=== PATIENT | male | born 1945 | race Caucasian/White ===

== ENCOUNTER → 2018-02-08 | Outpatient (CLI) | payer MEDICARE ==
--- NOTE | 2018-02-08 16:20 | XR ---
EXAMINATION TYPE: XR chest 2V DATE OF EXAM: 02/08/2018 COMPARISON: 06/27/2017 HISTORY: Shortness of breath TECHNIQUE: Frontal and lateral views of the chest are obtained. FINDINGS: Large left-sided pleural effusion. Underlying infiltrate or mass is not excluded. The right lung is c lear. Heart size is stable. Mediastinal structures are stable and grossly unremarkable. No evidence for hilar prominence. Degenerative changes dorsal spine. IMPRESSION: 1. Large left-sided pleural effusion. Underlying infiltrate or mass is not excluded.
== END | disposition home or self-care (01) ==
LOC: RADXRMAIN 15:51
PROVIDERS: ATTEND Internal Medicine
DX: J90 Pleural effusion, not elsewhere classified (principal)
CPT/HCPCS: 71046

== ENCOUNTER 2018-02-17 11:50 | Emergency (ER) | payer MEDICARE ==
[2018-02-17 11:59] VITALS: RESP 18; TEMP 97.3
--- NOTE | 2018-02-17 12:59 | ED ---
Recheck HPI - General Chief Complaint: Recheck/Abnormal Lab/Rx Stated Complaint: fluid in lung Time Seen by Provider: 02/17/18 12:22 Source: patient, RN notes reviewed, old records reviewed Mode of arrival: wheelchair Limitations: no limitations - History of Present Illness Initial Comments: This Patient is a 72-year-old male with a history of difficulty in breathing. He reports that he was scheduled to have a diagnostic thoracentesis today by his neurologist Dr. Nobles. Patient reports that he could not get this scheduled due to insurance issues. He reports today complaining of worsening shortness of breath and feeling like he has abdominal distention. Patient states that he stopped his blood thinners 2 days ago in order to have this procedure, and is concerned about possibly having a stroke in the future. Patient reports that he started to have the difficulty in breathing and was diagnosed with a pleural effusion approximately 2 months ago. He stated this seemed to coincide with his history of a pacemaker placement. Patient states that he's had no fevers or chills. Denies any changes in urination or bowel habits. Patient relates that it seems like he is coming quite short of breath on exertion. He is unable to complete full sentences. He denies any specific chest pain with this. - Related Data Home Medications Medication Instructions Recorded Confirmed Atorvastatin [Lipitor] 10 mg PO Q48H 01/08/16 02/17/18 Fish Oil/Dha/Epa [Fish Oil 1,200 1 cap PO DAILY 01/08/16 02/17/18 mg Fish Oil] Multivitamin [Men's Multi-Vitamin] 1 tab PO DAILY 01/08/16 02/17/18 Vits A,C,E/Lutein/Minerals 1 tab PO DAILY 01/08/16 02/17/18 [Ocuvite with Lutein Tablet] Albuterol Inhaler [Ventolin Hfa 1 - 2 puff INHALATION RT-Q6H PRN 06/23/17 Inhaler] Budesonide/Formoterol Fumarate 2 puff INHALATION RT-BID 06/23/17 02/17/18 [Symbicort 160-4.5 Mcg Inhaler] Apixaban [Eliquis] 5 mg PO DIRECTED 02/17/18 02/17/18 amLODIPine [Norvasc] 5 mg PO HS 02/17/18 02/17/18 Previous Rx's Medication Instructions Recorded Furosemide [Lasix] 40 mg PO DAILY tab 06/27/17 Levothyroxine Sodium [Synthroid] 25 mcg PO DAILY@0630 tab 06/27/17 Allergies Allergy/AdvReac Type Severity Reaction Status Date / Time No Known Allergies Allergy Verified 02/17/18 12:31 Review of Systems ROS Statement: Those systems with pertinent positive or pertinent negative responses have been documented in the HPI. ROS Other: All systems not noted in ROS Statement are negative. Past Medical History Past Medical History: Atrial Fibrillation, COPD, Hyperlipidemia Additional Past Medical History / Comment(s): macular degeneration, cataracts( had sx w/lens implants), bronchits, sinus poblems, pleural effusion History of Any Multi-Drug Resistant Organisms: None Reported Past Surgical History: Adenoidectomy, Pacemaker, Tonsillectomy Additional Past Surgical History / Comment(s): colonoscopy /polypectomy-neg, cataracts-lens implants, thoracentesis Past Anesthesia/Blood Transfusion Reactions: No Reported Reaction Past Psychological History: No Psychological Hx Reported Smoking Status: Former smoker - Past Family History Mother Family Medical History: Diabetes Mellitus Father Family Medical History: No Reported History General Exam - General Exam Comments Initial Comments: Patient is a 72-year-old male. Alert and oriented. Pleasant. No acute distress. Limitations: no limitations General appearance: alert, in no apparent distress Head exam: Present: atraumatic, normocephalic, normal inspection Eye exam: Present: normal appearance, PERRL, EOMI. Absent: scleral icterus, conjunctival injection, periorbital swelling ENT exam: Present: normal exam, mucous membranes moist Neck exam: Present: normal inspection. Absent: tenderness, meningismus, lymphadenopathy Respiratory exam: Present: decreased breath sounds (Decreased lung sounds over the left lower lobe.). Absent: normal lung sounds bilaterally, respiratory distress, wheezes, rales, rhonchi, stridor Cardiovascular Exam: Present: regular rate, normal rhythm, normal heart sounds. Absent: systolic murmur, diastolic murmur, rubs, gallop, clicks GI/Abdominal exam: Present: soft, tenderness (Patient has evidence of a ventral hernia. Patient has some tenderness and extension of the abdomen noted. He reports he feels bloated.), normal bowel sounds. Absent: distended, guarding, rebound, rigid Extremities exam: Present: normal inspection, full ROM, normal capillary refill. Absent: tenderness, pedal edema, joint swelling, calf tenderness Back exam: Present: normal inspection Neurological exam: Present: alert, oriented X3, CN II-XII intact Psychiatric exam: Present: normal affect, normal mood Skin exam: Present: warm, dry, intact, normal color. Absent: rash Course Vital Signs 02/17/18 02/17/18 02/17/18 11:55 15:11 15:26 Temperature 97.3 F L Pulse Rate 60 60 60 Respiratory 18 18 18 Rate Blood Pressure 173/92 168/87 166/86 O2 Sat by Pulse 98 98 98 Oximetry 02/17/18 15:38 Temperature Pulse Rate 67 Respiratory 18 Rate Blood Pressure 160/88 O2 Sat by Pulse 98 Oximetry - Reevaluation(s) Reevaluation #1: 02/17/18 14:34 We were able to get ahold of Dr. Swanson who will come down to the emergency department in order to perform the thoracentesis procedure. Ultrasound was completed and the Patient was marked. Currently pending cage unloader arrival to complete the procedure. Medical Decision Making - Medical Decision Making 32-year-old male with history of pleural effusion presents today after he was unable to get worse and she says due to insurance reasons at noon today. Patient was evaluated in the ER. Chest x-ray completed and does have a moderate -sized pleural effusion. Patient did receive thoracentesis procedure by Dr. Swanson in the emergency department. Patient tolerated the procedure well. Approximately 2400 mL of straw-colored fluid were removed. This was sent for testing. The rest of his labs are reviewed and unremarkable. Repeat chest x- ray shows no evidence of pneumothorax. Patient does feel better after receiving the drainage. Patient will be discharged at this time he will be resuming his blood thinners. Discussed appropriate follow-up. All questions answered and return parameters were discussed. - Lab Data Result diagrams: 02/17/18 13:55 02/17/18 13:55 Lab Results 02/17/18 02/17/18 02/17/18 Range/Units 13:55 13:55 13:55 WBC 6.6 (3.8-10.6) k/uL RBC 5.43 (4.30-5.90) m/uL Hgb 15.0 (13.0-17.5) gm/dL Hct 44.3 (39.0-53.0) % MCV 81.6 (80.0-100.0) fL MCH 27.6 (25.0-35.0) pg MCHC 33.8 (31.0-37.0) g/dL RDW 13.6 (11.5-15.5) % Plt Count 190 (150-450) k/uL Neutrophils % 66 % Lymphocytes % 22 % Monocytes % 7 % Eosinophils % 4 % Basophils % 0 % Neutrophils # 4.3 (1.3-7.7) k/uL Lymphocytes # 1.4 (1.0-4.8) k/uL Monocytes # 0.4 (0-1.0) k/uL Eosinophils # 0.3 (0-0.7) k/uL Basophils # 0.0 (0-0.2) k/uL PT 11.0 (9.0-12.0) sec INR 1.1 (<1.2) APTT 25.6 (22.0-30.0) sec Sodium 140 (137-145) mmol/L Potassium 4.0 (3.5-5.1) mmol/L Chloride 102 (98-107) mmol/L Carbon Dioxide 27 (22-30) mmol/L Anion Gap 11 mmol/L BUN 14 (9-20) mg/dL Creatinine 0.79 (0.66-1.25) mg/dL Est GFR (CKD-EPI)AfAm >90 (>60 ml/min/1.73 sqM) Est GFR (CKD-EPI)NonAf 89 (>60 ml/min/1.73 sqM) Glucose 93 (74-99) mg/dL Calcium 9.2 (8.4-10.2) mg/dL EKG performed at 1344 shows no jugular paced rhythm. Normal EKG. Ventricular rate 60 bpm. : Detected. QRS ration 164 ms. QT QTc is 508 ms. 02/17/18 14:47 02/17/18 14:48 - Radiology Data Radiology results: report reviewed Improve degree of the left pleural effusion now moderate with large associated left-sided airspace disease, likely compressive atelectasis. Chest ultrasound shows left pleural effusion measuring 10.8 cm. Persistent moderate left pleural effusion with minimal decrease in volume and associated basilar airspace disease, left leg compressed atelectasis. No postprocedural pneumothorax status post thoracentesis. Disposition Clinical Impression: Pleural effusion Disposition: HOME SELF-CARE Condition: Good Instructions: Pleural Effusion (ED) Additional Instructions: Patient advised to follow-up with primary care provider and pulmonology. Return to the emergency department if any alarming signs or symptoms occur. Is patient prescribed a controlled substance at d/c from ED?: No When asked, does pt state using other controlled substances?: No If prescribed controlled substance>3 days was MAPS reviewed?: No If opioid is for acute pain is fill amount 7 days or less?: No If Rx opioid, was Start Talking consent form obtained?: No Referrals: Kiki Schmidt MD [Primary Care Provider] - 1-2 days Time of Disposition: 16:00
--- NOTE | 2018-02-17 13:10 | XR ---
EXAMINATION TYPE: XR chest 2V DATE OF EXAM: 02/17/2018 COMPARISON: 02/08/2018 HISTORY: Chest pain with known pleural effusion. TECHNIQUE: Frontal and lateral views of the chest are obtained. FINDINGS: There is slight improvement of the moderate left pleural effusion in comparison to the mirtha or of 02/08/2018 with associated left-sided airspace disease. No pneumothorax is appreciated. Right kendy g remains clear. Mediastinum is shifted slightly to the right by mass effect. There is partial obscur ation of the cardiac borders although the heart appears overall stable from the prior with a single l ead left-sided cardiac device. Osseous structures are grossly intact. IMPRESSION: Improved degree of the left pleural effusion, now moderate, with associated left-sided a irspace disease likely compressive atelectasis.
[2018-02-17] MEDS ORDERED: SODIUM CHLORIDE 0.9% 500 ML IV STA (13:18)
[2018-02-17] MEDS ORDERED: SODIUM CHLORIDE 0.9% 1,000 ML IV STA (13:18)
[2018-02-17 14:16] LABS: Basophils % (A) 0 %; Eosinophils # (A) 0.3 k/uL (0-0.7); Eosinophils % (A) 4 %; HCT 44.3 % (39.0-53.0); Lymphocytes # (A) 1.4 k/uL (1.0-4.8); Lymphocytes % (A) 22 %; MCH 27.6 pg (25.0-35.0); MCHC 33.8 g/dL (31.0-37.0); MCV 81.6 fL (80.0-100.0); Mean Platelet Volume 6.4; Monocytes # (A) 0.4 k/uL (0-1.0); Monocytes % (A) 7 %; Neutrophils # (A) 4.3 k/uL (1.3-7.7); Neutrophils % (A) 66 %; Platelet Count 190 k/uL (150-450); RBC 5.43 m/uL (4.30-5.90); RDW 13.6 % (11.5-15.5); WBC 6.6 k/uL (3.8-10.6)
[2018-02-17 14:20] LABS: Anion Gap 11 mmol/L; Blood Urea Nitrogen 14 mg/dL (9-20); Calcium 9.2 mg/dL (8.4-10.2); Carbon Dioxide 27 mmol/L (22-30); Chloride 102 mmol/L (98-107); Glucose 93 mg/dL (74-99); Sodium 140 mmol/L (137-145)
[2018-02-17 14:23] LABS: INR 1.1 (<1.2); Partial Thromboplastin Time 25.6 sec (22.0-30.0)
--- NOTE | 2018-02-17 14:32 | US ---
EXAMINATION TYPE: US chest DATE OF EXAM: 02/17/2018 COMPARISON: NONE CLINICAL HISTORY: left pleural effusion. EXAM MEASUREMENTS: Left Pleural Effusion fluid pocket: 10.8 cm Left skin to fluid thickness: 1.7 cm Right side scanned for comparison- no effusion Left side marked for possible thoracentesis outside the dept. Pulmonologists are able to review the images in the patient?s EMR. IMPRESSIONS: Left pleural effusion
--- NOTE | 2018-02-17 15:56 | XR ---
EXAMINATION TYPE: XR chest 1V DATE OF EXAM: 02/17/2018 COMPARISON: 02/17/2018 HISTORY: Status post thoracentesis. Chest pain. TECHNIQUE: Single frontal view of the chest is obtained. FINDINGS: The there is a minimal decrease in degree of the left sided pleural effusion with associat ed left sided airspace disease and Zhao mediastinal shift. There is a single lead left-sided cardiac device overlying the peripheral left hemithorax. Cardiomediastinal silhouette is partially obscured but appears overall enlarged. Right lung remains well aerated. Osseous structures display generalized demineralization but overall intact. No postprocedural pneumothorax. IMPRESSION: Persistent moderate left pleural effusion with minimal decrease in volume and associated left basilar airspace disease, likely compressive atelectasis. No postprocedural pneumothorax status post thoracentesis.
[2018-02-17 16:38] VITALS: BP 161/90; PULSE 63
--- NOTE | 2018-02-17 19:23 | PCN ---
PROCEDURE NOTE Indication Pleural effusion. A time-out was completed verifying correct patient, procedure, site, positioning , and implant (s) or special equipment if applicable. Ultrasound guidance was used and appropriate fluid pocket was identified and marked. Patient was positioned, prepped and draped in usual sterile fashion. Lidocaine was used to anesthetize the area. A Thoracentesis catheter was introduced into the pleural space and fluid was removed. Blood loss was none. A chest x-ray was ordered to evaluate for pneumothorax. Total Fluid Removed: 2.4 L removed from the left pleural space. Color of Fluid: Fluid was sent for appropriate laboratory tests. Patient tolerated the procedure well and there were no complications. There was no immediate complication. The fluid was sent for analysis. A chest x-ray was ordered. No additional recommendations are made. The patient tolerated the procedure well. MMODL / IJN: [id number] /
[2018-02-17 20:11] LABS: Appearance,BF Clear; Color,BF Yellow; Nucleated Cells, Body Fluid 655 /uL; RBC, Body Fluid 345 /uL
[2018-02-17 20:12] LABS: Mononuclear WBC,Body Fluid 95 %; Polynuclear WBC,Body Fluid 5 %
[2018-02-18 00:46] LABS: Total Protein, Body Fluid 4480 mg/dL
== END 2018-02-17 16:11 | disposition home or self-care (01) ==
LOC: EC 11:50
DX: J90 Pleural effusion, not elsewhere classified (principal); I48.91 Unspecified atrial fibrillation; J44.9 Chronic obstructive pulmonary disease, unspecified; E78.5 Hyperlipidemia, unspecified; Z95.0 Presence of cardiac pacemaker; Z79.01 Long term (current) use of anticoagulants; Z79.51 Long term (current) use of inhaled steroids; Z79.899 Other long term (current) drug therapy; Z87.891 Personal history of nicotine dependence
CPT/HCPCS: 32555; 36415; 71045; 71046; 76604; 80048; 82945; 83615; 84157; 85025; 85610; 85730; 87070; 87205; 88108; 88305; 88341; 88342; 89050; 93005; 99284

== ENCOUNTER → 2018-03-12 | Outpatient (CLI) | payer MEDICARE ==
--- NOTE | 2018-03-12 16:24 | CT ---
EXAMINATION TYPE: CT chest w con DATE OF EXAM: 03/12/2018 COMPARISON: Radiographs 03/03/2018 HISTORY: 72-year-old male pleural effusion, Abnormal CXR per patient TECHNIQUE: Contiguous axial scanning of the chest after the administration of 100 mL of Isovue 300. Coronal/sagittal reconstructions performed. CT DLP: 614.6mGycm. Automatic exposure control utilized for a dose reduction. FINDINGS: Left anterior chest wall pacemaker generator with right ventricular lead. Heart normal size without pericardial effusion. Extensive coronary vessel calcifications are present in remarkable for coronary artery disease. Ascending aorta mildly aneurysmal at 4.1 cm. There is conventional arch vessel branching anatomy and ectatic descending thoracic aorta at 3.1 cm. No thoracic lymphadenopathy by CT size criteria. There is reflux of contrast into the hepatic veins and borderline sized caliber to the main right and left pulmonary arteries at 2.5 cm each. The right lung and pleural space are clear. There is a moderate to large left pleural effusion extending up to the apex. There may be some abnormal 2.3 cm soft tissue along the left lower lobe airway after the takeoff of t he superior segment bronchus. Refer to axial image 43. There is collapse of the basilar left lower lo be segments. Visualized upper abdomen shows clear adrenal glands, occasional colonic diverticulosis on the left, a nd a subcentimeter exophytic hypodensity posterior right kidney too small for accurate CT characteriz ation, probable cyst. Bones: Endplate spondylosis mid to lower thoracic spine. IMPRESSION: 1. Possible abnormal soft tissue measuring 2.3 cm along the left lower lobe airway after the takeoff of the superior segment bronchus (axial image 43). Beyond this level, there is basilar left lower lob e collapse. Consider endobronchial evaluation to exclude neoplasm. 2. Moderate to large left pleural effusion. 3. Mildly aneurysmal thoracic aorta (ascending 4.1 cm and descending 3.1 cm). 4. Possible pulmonary arterial hypertension. Along with reflux of contrast into the hepatic veins, co rrelate for elevated cardiac pressures. 5. CAD.
== END ==
LOC: RADCTMAIN 15:08
PROVIDERS: ATTEND Internal Medicine Critical Care Medicine
DX: J90 Pleural effusion, not elsewhere classified (principal); J98.11 Atelectasis
CPT/HCPCS: 82565; 84520; 71260; 36415; Q9967

== ENCOUNTER 2018-03-25 07:23 | Day surgery (SDC) | payer MEDICARE ==
[2018-03-22 11:16] VITALS: BMI 29.2
[~2018-03-25 07:23] MED LIST: DEXAMETHASONE SOD PHOSPHATE 10 MG/ML 1 ML VIAL IV ONE; HYDROmorphone 0.5 MG/0.5 ML SYRINGE IVP PRN; LACTATED RINGERS 1,000 ML IV SCH; ONDANSETRON 4 MG/2 ML VIAL IVP ONE; Pre Op ABX Message 1 EACH MISC MISCELLANE ONE
[2018-03-25] MEDS ORDERED: LIDOCAINE 1% 20 ML VIAL (10MG/ML) FOR IV START INTRADERMA ONE (08:10)
[2018-03-25 08:14] VITALS: RESP 18
[2018-03-25] MEDS ORDERED: LIDOCAINE 1% INJ 10MG/ML (20 ML MDV) ONE (10:00)
[2018-03-25] MEDS ORDERED: PROPOFOL 10 MG/ML 20 ML VIAL IV ONE (10:00)
[2018-03-25] MEDS ORDERED: fentaNYL (PF) 50 MCG/ML 2 ML AMP ONE (10:00)
[2018-03-25] MEDS ORDERED: MIDAZOLAM 2 MG/2 ML VIAL ONE (10:00)
[2018-03-25] MEDS ORDERED: LIDOCAINE 1% INJ 10MG/ML (20 ML MDV) SQ ONE (10:12)
--- NOTE | 2018-03-25 11:29 | FL ---
EXAMINATION TYPE: FL guided central line placement DATE OF EXAM: 03/25/2018 FLUOROSCOPY Fluoroscopy time of 30 seconds was used during left chest tube placement. 1 image/s document/s the josue grigsby.
--- NOTE | 2018-03-25 12:04 | PCN ---
PROCEDURE NOTE DATE OF OPERATION: 03/25/2018 DATE OF DICTATION: 03/25/2018 PREOPERATIVE DIAGNOSIS: Recurrent left pleural effusion. POSTOPERATIVE DIAGNOSE: Recurrent left pleural effusion. OPERATIVE PROCEDURE: Left Pleur-X catheter implantation. SURGEON: Dr. Ash Aleman. ANESTHESIA: Local IV sedation. The patient is a 72-year-old male who has been plagued by a recurrent left pleural effusion, status post placement of a left-sided pacemaker in June of 2017. Heart catheter was indicated for surgery. PROCEDURE: Patient was brought to the operating room, placed supine on the operating table. The left chest and upper abdomen are sterilely prepped and draped; 1% lidocaine was used for anesthesia. An 18-gauge needle was used to puncture the left pleural space in the 7th interspace in the mid axillary line. Serous fluid was obtained. A guidewire was threaded present in the left lateral space on fluoroscopy. The entry point was enlarged to just over a cm and a counter incision was made in the left upper quadrant. The Pleurx catheter was tunneled from the counter incision on the left upper quadrant to the initial incision in the left chest and the subcutaneous cuff was placed just below the exit upper quadrant below the skin. Introducer and dilator were placed over the guidewire under fluoroscopic guidance and through the introducer sheath, the Pleur- X catheter was entered into the left pleural cavity. Introducer sheath was removed. Placement in the left pleural cavity was confirmed with fluoroscopy. Pleur-X catheter was connected to suction. Samples were collected for cell count, chemistry, culture, and cytology, and a total of 2.5 L were drained from the left pleural space. On completion of the drainage, the patient began to cough and we stopped draining. Fluoroscopy demonstrated good evacuation of the left pleural space with a small residual pneumothorax present. The entry site was closed with 4-0 Vicryl suture, his catheter was secured at the exit site with 2 0 silk suture. Skin glue was applied to the entry site incision and standard PleurX drainage dressing was applied to the PleurX catheter at the exit site. Patient was transferred to recovery room in stable condition. MMODL / IJN: [id number] /
[2018-03-25 14:04] VITALS: TEMP 98.3
[2018-03-25 14:14] LABS: Appearance,BF Cloudy; Color,BF Yellow; RBC, Body Fluid 5500 /uL
[2018-03-25 14:15] VITALS: BP 132/75; PULSE 60
[2018-03-25 14:15] LABS: Nucleated Cells, Body Fluid 820 /uL
[2018-03-25 14:16] LABS: Mononuclear WBC,Body Fluid 98 %; Polynuclear WBC,Body Fluid 2 %; Total Cells Counted,Body Fluid 100
[2018-03-26 00:51] LABS: Total Protein, Body Fluid 4500 mg/dL
== END 2018-03-25 14:08 | disposition home health service (06) ==
LOC: OR 07:23
PROVIDERS: ATTEND Thoracic Surgery (Cardiothoracic Vascular Surgery)
DX: J90 Pleural effusion, not elsewhere classified (principal); Z95.0 Presence of cardiac pacemaker; I48.91 Unspecified atrial fibrillation; Z79.01 Long term (current) use of anticoagulants; I10 Essential (primary) hypertension; E78.5 Hyperlipidemia, unspecified; E07.9 Disorder of thyroid, unspecified; Z79.82 Long term (current) use of aspirin; Z79.890 Hormone replacement therapy; Z79.51 Long term (current) use of inhaled steroids; Z79.899 Other long term (current) drug therapy
CPT/HCPCS: 32550; 88108; 88305; 89050; 87070; 87205; 87075; 87116; 87102; 87206; 82945; 83615; 84157; 75989; J2250; J1100; J2405; J2001; J3010; J2704; 77001

== ENCOUNTER 2018-06-06 18:40 | Inpatient (IN) | payer MEDICARE ==
[2018-06-06] MEDS ORDERED: IPRATROPIUM 0.5 MG/2.5 ML NEBU INHALATION STA (18:46)
[2018-06-06] MEDS ORDERED: SODIUM CHLORIDE 0.9% 1,000 ML IV STA (18:46)
[2018-06-06] MEDS ORDERED: ALBUTEROL NEBULIZED 2.5 MG/3 ML INHALATION STA (18:46)
--- NOTE | 2018-06-06 19:06 | ED ---
General Adult HPI - General Chief complaint: Shortness of Breath Stated complaint: Diff Breathing, Congested, Tighness Time Seen by Provider: 06/06/18 18:44 Source: patient, RN notes reviewed, old records reviewed Mode of arrival: ambulatory Limitations: no limitations - History of Present Illness Initial comments: This is a 73-year-old male the ER for evaluation of recent shortness of breath onset of shortness of breath. Patient is multiple comorbidities shortness of breath he does get significant pleural effusions,history of COPD. He also feels significant chest tightness currently. No travel history of recent, no recent hospital stay shows no fevers he is coughing with no productive sputum. He just feels again tightness chest. Denies significant pain. No melena real modifying factors for symptoms - Related Data Home Medications Medication Instructions Recorded Confirmed Atorvastatin [Lipitor] 10 mg PO Q48H 01/08/16 03/25/18 Fish Oil/Dha/Epa [Fish Oil 1,200 1 cap PO DAILY 01/08/16 03/25/18 mg Fish Oil] Multivitamin [Men's Multi-Vitamin] 1 tab PO DAILY 01/08/16 03/25/18 Vits A,C,E/Lutein/Minerals 1 tab PO DAILY 01/08/16 03/25/18 [Ocuvite with Lutein Tablet] Albuterol Inhaler [Ventolin Hfa 1 - 2 puff INHALATION RT-Q6H PRN 06/23/17 Inhaler] Budesonide/Formoterol Fumarate 2 puff INHALATION RT-BID 06/23/17 03/25/18 [Symbicort 160-4.5 Mcg Inhaler] Apixaban [Eliquis] 5 mg PO DAILY 02/17/18 03/25/18 amLODIPine [Norvasc] 5 mg PO HS 02/17/18 03/25/18 Aspirin [Adult Low Dose Aspirin EC] 81 mg PO DAILY 03/22/18 03/25/18 Vit C/E/Zn/Coppr/Lutein/Zeaxan 1 each PO DAILY 03/22/18 03/25/18 [Preservision Areds 2 Softgel] Previous Rx's Medication Instructions Recorded Furosemide [Lasix] 40 mg PO DAILY tab 06/27/17 Levothyroxine Sodium [Synthroid] 25 mcg PO DAILY@0630 tab 06/27/17 Allergies Allergy/AdvReac Type Severity Reaction Status Date / Time No Known Allergies Allergy Verified 06/06/18 18:47 Review of Systems ROS Statement: Those systems with pertinent positive or pertinent negative responses have been documented in the HPI. ROS Other: All systems not noted in ROS Statement are negative. Past Medical History Past Medical History: Atrial Fibrillation, COPD, Eye Disorder, Hyperlipidemia, Hypertension Additional Past Medical History / Comment(s): macular degeneration, hx of left pleural effusion History of Any Multi-Drug Resistant Organisms: None Reported Past Surgical History: Adenoidectomy, Pacemaker, Tonsillectomy Additional Past Surgical History / Comment(s): colonoscopy /polypectomy-neg, cataracts-lens implants,. left thoracentesis, [employer], pleural catheter placement Past Anesthesia/Blood Transfusion Reactions: No Reported Reaction Type of Cardiac Device: Permanent Pacemaker Device Placement Date:: 06/2017 Past Psychological History: No Psychological Hx Reported Smoking Status: Former smoker Past Alcohol Use History: None Reported Past Drug Use History: None Reported - Past Family History Mother Family Medical History: Cancer, Diabetes Mellitus Additional Family Medical History / Comment(s): breast Father Family Medical History: No Reported History General Exam Limitations: no limitations General appearance: alert, in no apparent distress Head exam: Present: atraumatic, normocephalic, normal inspection Eye exam: Present: normal appearance, PERRL, EOMI. Absent: scleral icterus, conjunctival injection, periorbital swelling ENT exam: Present: normal exam, mucous membranes moist Neck exam: Present: normal inspection. Absent: tenderness, meningismus, lymphadenopathy Respiratory exam: Present: wheezes. Absent: normal lung sounds bilaterally, respiratory distress, rales, rhonchi, stridor Cardiovascular Exam: Present: normal rhythm, bradycardia (Paced rhythm), normal heart sounds. Absent: systolic murmur, diastolic murmur, rubs, gallop, clicks GI/Abdominal exam: Present: soft, normal bowel sounds. Absent: distended, tenderness, guarding, rebound, rigid Extremities exam: Present: normal inspection, full ROM, normal capillary refill. Absent: tenderness, pedal edema, joint swelling, calf tenderness Back exam: Present: normal inspection Neurological exam: Present: alert, oriented X3, CN II-XII intact Psychiatric exam: Present: normal affect, normal mood Skin exam: Present: warm, dry, intact, normal color. Absent: rash Course Vital Signs 06/06/18 06/06/18 06/06/18 18:44 19:03 19:17 Temperature 98.3 F Pulse Rate 61 64 60 Respiratory 18 Rate Blood Pressure 145/74 O2 Sat by Pulse 94 L Oximetry 06/06/18 19:45 Temperature Pulse Rate 60 Respiratory Rate Blood Pressure O2 Sat by Pulse Oximetry - Reevaluation(s) Reevaluation #1: 06/06/18 20:59 Patient has no improvement currently Reevaluation #2: 06/06/18 20:59 Medical records thoroughly reviewed EKG Findings - EKG Comments: EKG Findings:: EKG shows undetermined rhythm rate of 60, QRS 172, QTc 540 Medical Decision Making - Medical Decision Making 73 male the ER for evaluation significant COPD exacerbation, continued of shortness of breath and tightness. We'll admit for breathing treatments and steroids - Lab Data Result diagrams: 06/06/18 19:05 06/06/18 19:05 Lab Results 06/06/18 06/06/18 06/06/18 Range/Units 19:05 19:05 19:05 WBC 13.6 H (3.8-10.6) k/uL RBC 5.29 (4.30-5.90) m/uL Hgb 14.0 (13.0-17.5) gm/dL Hct 43.1 (39.0-53.0) % MCV 81.4 (80.0-100.0) fL MCH 26.5 (25.0-35.0) pg MCHC 32.5 (31.0-37.0) g/dL RDW 14.3 (11.5-15.5) % Plt Count 184 (150-450) k/uL Neutrophils % 83 % Lymphocytes % 8 % Monocytes % 5 % Eosinophils % 3 % Basophils % 0 % Neutrophils # 11.3 H (1.3-7.7) k/uL Lymphocytes # 1.1 (1.0-4.8) k/uL Monocytes # 0.7 (0-1.0) k/uL Eosinophils # 0.4 (0-0.7) k/uL Basophils # 0.0 (0-0.2) k/uL PT (9.0-12.0) sec INR (<1.2) APTT (22.0-30.0) sec Sodium 138 (137-145) mmol/L Potassium 3.7 (3.5-5.1) mmol/L Chloride 100 (98-107) mmol/L Carbon Dioxide 26 (22-30) mmol/L Anion Gap 12 mmol/L BUN 12 (9-20) mg/dL Creatinine 0.79 (0.66-1.25) mg/dL Est GFR (CKD-EPI)AfAm >90 (>60 ml/min/1.73 sqM) Est GFR (CKD-EPI)NonAf 88 (>60 ml/min/1.73 sqM) Glucose 127 H (74-99) mg/dL Calcium 9.6 (8.4-10.2) mg/dL Magnesium 1.9 (1.6-2.3) mg/dL Total Bilirubin 0.7 (0.2-1.3) mg/dL AST 34 (17-59) U/L ALT 38 (21-72) U/L Alkaline Phosphatase 58 (38-126) U/L Total Creatine Kinase 393 H (55-170) U/L CK-MB (CK-2) 5.8 H (0.0-2.4) ng/mL CK-MB (CK-2) Rel Index 1.5 Troponin I <0.012 (0.000-0.034) ng/mL NT-Pro-B Natriuret Pep pg/mL Total Protein 7.3 (6.3-8.2) g/dL Albumin 4.3 (3.5-5.0) g/dL 06/06/18 06/06/18 Range/Units 19:05 19:05 WBC (3.8-10.6) k/uL RBC (4.30-5.90) m/uL Hgb (13.0-17.5) gm/dL Hct (39.0-53.0) % MCV (80.0-100.0) fL MCH (25.0-35.0) pg MCHC (31.0-37.0) g/dL RDW (11.5-15.5) % Plt Count (150-450) k/uL Neutrophils % % Lymphocytes % % Monocytes % % Eosinophils % % Basophils % % Neutrophils # (1.3-7.7) k/uL Lymphocytes # (1.0-4.8) k/uL Monocytes # (0-1.0) k/uL Eosinophils # (0-0.7) k/uL Basophils # (0-0.2) k/uL PT 10.9 (9.0-12.0) sec INR 1.1 (<1.2) APTT 26.3 (22.0-30.0) sec Sodium (137-145) mmol/L Potassium (3.5-5.1) mmol/L Chloride (98-107) mmol/L Carbon Dioxide (22-30) mmol/L Anion Gap mmol/L BUN (9-20) mg/dL Creatinine (0.66-1.25) mg/dL Est GFR (CKD-EPI)AfAm (>60 ml/min/1.73 sqM) Est GFR (CKD-EPI)NonAf (>60 ml/min/1.73 sqM) Glucose (74-99) mg/dL Calcium (8.4-10.2) mg/dL Magnesium (1.6-2.3) mg/dL Total Bilirubin (0.2-1.3) mg/dL AST (17-59) U/L ALT (21-72) U/L Alkaline Phosphatase (38-126) U/L Total Creatine Kinase (55-170) U/L CK-MB (CK-2) (0.0-2.4) ng/mL CK-MB (CK-2) Rel Index Troponin I (0.000-0.034) ng/mL NT-Pro-B Natriuret Pep 1220 pg/mL Total Protein (6.3-8.2) g/dL Albumin (3.5-5.0) g/dL - Radiology Data Radiology results: report reviewed (Chest x-rays negative for effusion), image reviewed Disposition Clinical Impression: Acute exacerbation of chronic obstructive airways disease Disposition: ADMITTED IP TO THIS HOSP Condition: Fair Is patient prescribed a controlled substance at d/c from ED?: No Referrals: Kiki Schmidt MD [Primary Care Provider] - 1-2 days
[2018-06-06 19:21] LABS: Basophils % (A) 0 %; Eosinophils # (A) 0.4 k/uL (0-0.7); Eosinophils % (A) 3 %; HCT 43.1 % (39.0-53.0); Lymphocytes # (A) 1.1 k/uL (1.0-4.8); Lymphocytes % (A) 8 %; MCH 26.5 pg (25.0-35.0); MCHC 32.5 g/dL (31.0-37.0); MCV 81.4 fL (80.0-100.0); Mean Platelet Volume 6.7; Monocytes # (A) 0.7 k/uL (0-1.0); Monocytes % (A) 5 %; Neutrophils # (A) 11.3 k/uL (1.3-7.7); Neutrophils % (A) 83 %; Platelet Count 184 k/uL (150-450); RBC 5.29 m/uL (4.30-5.90); RDW 14.3 % (11.5-15.5); WBC 13.6 k/uL (3.8-10.6)
[2018-06-06 19:32] LABS: INR 1.1 (<1.2); Partial Thromboplastin Time 26.3 sec (22.0-30.0); Prothrombin Time 10.9 sec (9.0-12.0)
[2018-06-06 19:35] LABS: ALT 38 U/L (21-72); AST 34 U/L (17-59); Albumin 4.3 g/dL (3.5-5.0); Alkaline Phosphatase 58 U/L (38-126); Anion Gap 12 mmol/L; Blood Urea Nitrogen 12 mg/dL (9-20); Calcium 9.6 mg/dL (8.4-10.2); Carbon Dioxide 26 mmol/L (22-30); Chloride 100 mmol/L (98-107); Glucose 127 mg/dL (74-99); Magnesium 1.9 mg/dL (1.6-2.3); Potassium 3.7 mmol/L (3.5-5.1); Sodium 138 mmol/L (137-145); Total Bilirubin 0.7 mg/dL (0.2-1.3); Total Protein 7.3 g/dL (6.3-8.2)
[2018-06-06 19:49] LABS: Creatine Kinase 393 U/L (55-170)
[2018-06-06 20:03] LABS: Creatine Kinase MB 5.8 ng/mL (0.0-2.4); Troponin I <0.012 ng/mL (0.000-0.034)
--- NOTE | 2018-06-06 20:04 | XR ---
EXAMINATION TYPE: XR chest 2V DATE OF EXAM: 06/06/2018 COMPARISON: 06/04/2018 HISTORY: Short of breath TECHNIQUE: Frontal and lateral views of the chest are obtained. FINDINGS: There is no heart failure nor confluent pneumonic infiltrate. Costophrenic angles are suzi r. There is left axillary pacemaker with the lead tip in the right ventricle. There are chest leads. Bony thorax is intact. There is mild flattening of the diaphragm. IMPRESSION: There is probably COPD. No active cardiopulmonary disease. No change.
[2018-06-06] MEDS ORDERED: methylPREDNISolone SOD SUCCI 125 MG/2 ML VIAL IV STA (20:43)
[2018-06-06] MEDS: ALBUTEROL NEBULIZED 2.5 MG/3 ML INHALATION PRN (22:45)
[2018-06-06 22:49] LABS: Glucose,Whole Blood 125 mg/dL (75-99)
[2018-06-07] MEDS: methylPREDNISolone SOD SUCCI 125 MG/2 ML VIAL IV SCH ×4 (00:55→18:18)
[2018-06-07] MEDS: ALBUTEROL NEBULIZED 2.5 MG/3 ML INHALATION PRN ×3 (03:45→23:51)
[2018-06-07 05:52] LABS: Basophils % (A) 0 %; Eosinophils # (A) 0.1 k/uL (0-0.7); Eosinophils % (A) 1 %; HCT 42.6 % (39.0-53.0); HGB 13.5 gm/dL (13.0-17.5); Lymphocytes # (A) 0.5 k/uL (1.0-4.8); Lymphocytes % (A) 5 %; MCH 26.3 pg (25.0-35.0); MCHC 31.8 g/dL (31.0-37.0); MCV 82.7 fL (80.0-100.0); Mean Platelet Volume 6.1; Monocytes # (A) 0.2 k/uL (0-1.0); Monocytes % (A) 2 %; Neutrophils # (A) 10.4 k/uL (1.3-7.7); Neutrophils % (A) 93 %; Platelet Count 175 k/uL (150-450); RBC 5.15 m/uL (4.30-5.90); RDW 14.2 % (11.5-15.5); WBC 11.2 k/uL (3.8-10.6)
[2018-06-07 06:01] LABS: ALT 38 U/L (21-72); AST 33 U/L (17-59); Alkaline Phosphatase 58 U/L (38-126); Anion Gap 10 mmol/L; Blood Urea Nitrogen 14 mg/dL (9-20); Calcium 9.4 mg/dL (8.4-10.2); Carbon Dioxide 27 mmol/L (22-30); Chloride 101 mmol/L (98-107); Glucose 171 mg/dL (74-99); Potassium 4.4 mmol/L (3.5-5.1); Sodium 138 mmol/L (137-145); Total Bilirubin 0.7 mg/dL (0.2-1.3); Total Protein 6.9 g/dL (6.3-8.2)
[2018-06-07 06:02] VITALS: BMI 30.6
[2018-06-07 07:37] LABS: Glucose,Whole Blood 170 mg/dL (75-99)
[2018-06-07] MEDS: IPRATROPIUM-ALBUTEROL 3 ML NEB INHALATION SCH ×4 (07:55→19:38)
[2018-06-07] MEDS: INSULIN ASPART 100 UNIT/ML 1 ML 10 ML VIAL SQ SCH ×4 (08:06→20:57)
--- NOTE | 2018-06-07 10:20 | P.HPIM ---
History of Present Illness H&P Date: 06/07/18 Chief Complaint: Dyspnea This is a 73-year-old male patient who presented to the emergency room with complaints of increased shortness of breath. Patient states that shortness of breath had been progressively increasing throughout the weekend. Patient has a known past medical history of COPD and pleural effusion. Patient does have a Pleurx catheter to left side placed in March per Dr. Aleman. Patient states he gets Pleurx drained every Thursday and Thursday. Patient did state he got 50 mL out on Thursday. Patient does follow with Dr. Sandhu per pulmonary services. Additional medical history includes atrial fibrillation in which she takes eliquis, Permanent pacemaker, macular degeneration, hyperlipidemia and hypertension. Chest x-ray completed emergency room showing probable COPD. No active cardiopulmonary disease. No change. Dr. Sandhu consulted for pulmonary services. EKG completed showing undetermined rhythm nonspecific intraventricular block. Patient does have a pacemaker. Patient states he does have advanced her active but does not have it currently present with him. Patient is alert and oriented 3 and states that he would like CPR but no mechanical ventilation. Patient started on Solu-Medrol 60 mg every 6 hours and breathing treatments. At this time patient denies chest pain. Does state shortness of breath with increased activity. Patient denies nausea vomiting or diarrhea. Patient denies any urinary burning or frequency Review of Systems Please refer to HPI otherwise unremarkable Past Medical History Past Medical History: Atrial Fibrillation, COPD, Eye Disorder, Hyperlipidemia, Hypertension Additional Past Medical History / Comment(s): Macular degeneration, left pleural effusions w/ Pleur-X catheter in LUQ (placed by Dr. Aleman), History of Any Multi-Drug Resistant Organisms: None Reported Past Surgical History: Adenoidectomy, Pacemaker, Tonsillectomy Additional Past Surgical History / Comment(s): Colonoscopy/polypectomy, cataracts - lens implants,. left thoracentesis, [employer], Pleur-X catheter LUQ. Past Anesthesia/Blood Transfusion Reactions: No Reported Reaction Type of Cardiac Device: Permanent Pacemaker Device Placement Date:: 06/2017 Past Psychological History: No Psychological Hx Reported Smoking Status: Former smoker Past Alcohol Use History: Occasional Additional Past Alcohol Use History / Comment(s): smoking: started 1960s- stopped early . States he drinks a beer occasionally. Lives alone. States he rides his bike 4 miles a day. [id number] Chelle is POA. Past Drug Use History: None Reported - Past Family History Mother Family Medical History: Cancer, Diabetes Mellitus Additional Family Medical History / Comment(s): Breast Father Family Medical History: No Reported History Medications and Allergies Home Medications Medication Instructions Recorded Confirmed Type Atorvastatin [Lipitor] 10 mg PO Q48H 01/08/16 06/07/18 History Fish Oil/Dha/Epa [Fish Oil 1,200 1 cap PO DAILY 01/08/16 06/07/18 History mg Fish Oil] Multivitamin [Men's Multi-Vitamin] 1 tab PO DAILY 01/08/16 06/07/18 History Vits A,C,E/Lutein/Minerals 1 tab PO DAILY 01/08/16 06/07/18 History [Ocuvite with Lutein Tablet] Albuterol Inhaler [Ventolin Hfa 1 - 2 puff INHALATION RT-Q6H PRN 06/23/17 History Inhaler] Budesonide/Formoterol Fumarate 2 puff INHALATION RT-BID 06/23/17 06/07/18 History [Symbicort 160-4.5 Mcg Inhaler] Furosemide [Lasix] 40 mg PO DAILY tab 06/27/17 06/07/18 Rx Levothyroxine Sodium [Synthroid] 25 mcg PO DAILY@0630 tab 06/27/17 06/07/18 Rx Apixaban [Eliquis] 5 mg PO BID 02/17/18 06/07/18 History amLODIPine [Norvasc] 5 mg PO HS 02/17/18 06/07/18 History Aspirin [Adult Low Dose Aspirin EC] 81 mg PO DAILY 03/22/18 06/07/18 History Saw Picacho 500 mg PO TID 06/07/18 06/07/18 History Allergies Allergy/AdvReac Type Severity Reaction Status Date / Time No Known Allergies Allergy Verified 06/07/18 06:07 Physical Exam Vitals: Vital Signs Temp Pulse Pulse Resp BP BP Pulse Ox 06/07/18 08:18 64 06/07/18 07:55 66 06/07/18 07:00 97.5 F L 60 18 133/71 98 06/07/18 06:19 60 06/07/18 06:09 60 06/07/18 03:57 60 06/07/18 03:46 64 06/06/18 22:56 60 06/06/18 22:45 60 06/06/18 22:30 97.4 F L 60 24 140/98 93 L 06/06/18 21:43 97 F L 06/06/18 21:23 60 18 149/68 95 06/06/18 19:45 60 06/06/18 19:17 60 06/06/18 19:03 64 06/06/18 18:44 98.3 F 61 18 145/74 94 L Intake and Output 06/06/18 06/07/18 06/07/18 22:59 06:59 14:59 Intake Total 100 100 Balance 100 100 Intake: Oral 100 100 Other: Voiding Method Urinal # Voids 1 1 Weight 109.316 kg 114 kg Head normocephalic Neck supple Lungs bilateral expiratory wheezing. Crackles noted to left lower lobe Heart regular rate and rhythm S1-S2, no rub or gallop Abdomen is soft nontender nondistended positive bowel sounds no hepatosplenomegaly Extremities no edema Neuro alert and orientated to 3 Results CBC & Chem 7: 06/07/18 05:34 06/07/18 05:34 Labs: Abnormal Lab Results - Last 24 Hours (Table) 06/06/18 06/06/18 06/06/18 Range/Units 19:05 19:05 19:05 WBC 13.6 H (3.8-10.6) k/uL Neutrophils # 11.3 H (1.3-7.7) k/uL Lymphocytes # (1.0-4.8) k/uL D-Dimer (<0.60) mg/L FEU Glucose 127 H (74-99) mg/dL POC Glucose (mg/dL) (75-99) mg/dL Total Creatine Kinase 393 H (55-170) U/L CK-MB (CK-2) 5.8 H (0.0-2.4) ng/mL 06/06/18 06/07/18 06/07/18 Range/Units 22:45 05:34 05:34 WBC 11.2 H (3.8-10.6) k/uL Neutrophils # 10.4 H (1.3-7.7) k/uL Lymphocytes # 0.5 L (1.0-4.8) k/uL D-Dimer 0.69 H (<0.60) mg/L FEU Glucose (74-99) mg/dL POC Glucose (mg/dL) 125 H (75-99) mg/dL Total Creatine Kinase (55-170) U/L CK-MB (CK-2) (0.0-2.4) ng/mL 06/07/18 06/07/18 Range/Units 05:34 07:34 WBC (3.8-10.6) k/uL Neutrophils # (1.3-7.7) k/uL Lymphocytes # (1.0-4.8) k/uL D-Dimer (<0.60) mg/L FEU Glucose 171 H (74-99) mg/dL POC Glucose (mg/dL) 170 H (75-99) mg/dL Total Creatine Kinase (55-170) U/L CK-MB (CK-2) (0.0-2.4) ng/mL Thrombosis Risk Factor Assmnt - Choose All That Apply Any of the Below Risk Factors Present?: Yes Each Factor Represents 1 point: Abnormal pulmonary function (COPD) Other Risk Factors: No Each Risk Factor Represents 3 Points: Age 75 years or older Other congenital or acquired thrombophilia - If yes, enter type in comment: No Thrombosis Risk Factor Assessment Total Risk Factor Score: 4 Thrombosis Risk Factor Assessment Level: Moderate Risk Assessment and Plan Assessment: 1. COPD exacerbation. Chest x-ray completed showing probable COPD. No active cardiopulmonary disease. No change. Patient started on Solu-Medrol every 6 hours and updraft breathing treatments. Dr. Zamarripa per pulmonary services consulted 2. Frequent pleural effusions with Pleurx catheter placement. Patient had Pleurx catheter placed in March per Dr. Aleman. Patient gets Pleurx catheter drained every Thursday and Thursday. Patient states he 50 mL of drainage on Thursday. Patient's home Lasix 40 mg resumed 3. History of atrial fibrillation. Patient currently on eliquis 4. History of permanent pacemaker placement. Placed June 2017. 5. History of essential hypertension. Continue Norvasc 6. Hypothyroidism. Continue Synthroid 7. History of Macular degeneration 8. History of hyperlipidemia. Continue Lipitor 9. Hyperglycemia due to steroids. Sliding scale insulin has been added 10. Leukocytosis. Blood culture has been ordered. Patient is on steroids. WBC 11.2 DVT prophylaxis eliquis. GI prophylaxis Pepcid Time with Patient: Greater than 30 (Greater than 60% of the total time spent in counseling and coordination of care. I performed an examination of the patient and discussed their management with the Nurse Practitioner. I have reviewed the Nurse Practitioner's notes and agree with the documented findings and plan of care)
[2018-06-07] MEDS: FUROSEMIDE 40 MG TAB PO SCH (10:40)
[2018-06-07] MEDS: APIXABAN 5 MG TAB PO SCH ×2 (10:40→20:57)
[2018-06-07 11:40] LABS: Glucose,Whole Blood 153 mg/dL (75-99)
[2018-06-07] MEDS: LEVOTHYROXINE 25 MCG TAB PO SCH (13:07)
[2018-06-07] MEDS: ASPIRIN 81 MG PO SCH (13:08)
[2018-06-07] MEDS ORDERED: NON-FORMULARY DRUG (Saw Palmetto [Saw Palmetto] 500 MG) PO SCH (16:00)
[2018-06-07 17:44] LABS: Glucose,Whole Blood 157 mg/dL (75-99)
--- NOTE | 2018-06-07 17:59 | P.CNPUL ---
History of Present Illness Consult date: 06/07/18 Reason for consult: dyspnea, cough, COPD Chief complaint: Acute exacerbation of COPD History of present illness: This is a 73-year-old white male patient of Dr. Schmidt, with an underlying history of COPD, history of left pleural effusions with previous history of thoracentesis, and placement of a Pleurx catheter. He had etiology of the recurrence of the pleural effusion was not determined, but was thought to be postinflammatory in nature secondary to permanent pacemaker implantation in June. Cytology on 2 different occasions has been negative. CT scan of the chest did not show evidence of malignancy. The pleural fluid analysis showed exudative pleural fluid. Patient underwent Pleurx catheter insertion, and the amount of output from the catheter has been decreasing. He was feeling less short of breath, and was not requiring oxygen. He was recently seen in the office by Dr. Nobles, he was doing well, he was placed on some steroids regarding the ongoing effusion production. Patient was started on the cold to seen 0.6 mg by mouth. Patient was draining on average of 50-75 ML from the pleural catheter on the daily basis. Patient received of influenza vaccine in the office, subsequently he started experiencing increased coughing, wheezing, shortness of breath. Chest x-ray showed no active cardiopulmonary process. EKG showed paced rhythm. Lab work showed WBC of 11.2, hemoglobin of 13.5, d- dimer 0.69, electrocerebral profile were all within normal limits, LFTs were normal, no fever or chills, patient is on 2 L per nasal cannula, his pulse ox is 95%. Patient was started on nebulized bronchodilators, IV steroids and today we're seeing this patient in regards to acute COPD exacerbation. Other medical history includes atrial fibrillation, on Eliquis, permanent pacemaker insertion, macular degeneration, hypertension, hyperlipidemia. Review of Systems All systems: negative Constitutional: Denies chills, Denies fever Eyes: denies blurred vision, denies pain Ears, nose, mouth and throat: Denies headache, Denies sore throat Cardiovascular: Denies chest pain, Denies shortness of breath Respiratory: Reports dyspnea, Reports respiratory infections, Reports wheezing, Denies cough Gastrointestinal: Denies abdominal pain, Denies diarrhea, Denies nausea, Denies vomiting Musculoskeletal: Denies myalgias Integumentary: Denies pruritus, Denies rash Neurological: Denies numbness, Denies weakness Psychiatric: Denies anxiety, Denies depression Endocrine: Denies fatigue, Denies weight change Past Medical History Past Medical History: Atrial Fibrillation, COPD, Eye Disorder, Hyperlipidemia, Hypertension Additional Past Medical History / Comment(s): Macular degeneration, left pleural effusions w/ Pleur-X catheter in [place] (placed by Dr. Aleman), History of Any Multi-Drug Resistant Organisms: None Reported Past Surgical History: Adenoidectomy, Pacemaker, Tonsillectomy Additional Past Surgical History / Comment(s): Colonoscopy/polypectomy, cataracts - lens implants,. left thoracentesis, [employer], Pleur-X catheter LUQ. Past Anesthesia/Blood Transfusion Reactions: No Reported Reaction Type of Cardiac Device: Permanent Pacemaker Device Placement Date:: 06/2017 Past Psychological History: No Psychological Hx Reported Smoking Status: Former smoker Past Alcohol Use History: Occasional Additional Past Alcohol Use History / Comment(s): smoking: started - stopped early . States he drinks a beer occasionally. Lives alone. States he rides his bike 4 miles a day. [id number] Chelle is POA. Past Drug Use History: None Reported - Past Family History Mother Family Medical History: Cancer, Diabetes Mellitus Additional Family Medical History / Comment(s): Breast Father Family Medical History: No Reported History Medications and Allergies Home Medications Medication Instructions Recorded Confirmed Type Atorvastatin [Lipitor] 10 mg PO Q48H 01/08/16 06/07/18 History Fish Oil/Dha/Epa [Fish Oil 1,200 1 cap PO DAILY 01/08/16 06/07/18 History mg Fish Oil] Multivitamin [Men's Multi-Vitamin] 1 tab PO DAILY 01/08/16 06/07/18 History Vits A,C,E/Lutein/Minerals 1 tab PO DAILY 01/08/16 06/07/18 History [Ocuvite with Lutein Tablet] Albuterol Inhaler [Ventolin Hfa 1 - 2 puff INHALATION RT-Q6H PRN 06/23/17 History Inhaler] Budesonide/Formoterol Fumarate 2 puff INHALATION RT-BID 06/23/17 06/07/18 History [Symbicort 160-4.5 Mcg Inhaler] Furosemide [Lasix] 40 mg PO DAILY tab 06/27/17 06/07/18 Rx Levothyroxine Sodium [Synthroid] 25 mcg PO DAILY@0630 tab 06/27/17 06/07/18 Rx Apixaban [Eliquis] 5 mg PO BID 02/17/18 06/07/18 History amLODIPine [Norvasc] 5 mg PO HS 02/17/18 06/07/18 History Aspirin [Adult Low Dose Aspirin EC] 81 mg PO DAILY 03/22/18 06/07/18 History Saw [place] 500 mg PO TID 06/07/18 06/07/18 History Allergies Allergy/AdvReac Type Severity Reaction Status Date / Time No Known Allergies Allergy Verified 06/07/18 06:07 Physical Exam Vitals: Vital Signs Temp Pulse Pulse Resp BP BP Pulse Ox 06/07/18 16:03 60 06/07/18 16:00 60 18 06/07/18 15:47 66 06/07/18 14:21 97.9 F 60 18 166/80 95 06/07/18 12:02 62 06/07/18 11:44 60 06/07/18 08:18 64 06/07/18 08:00 60 18 06/07/18 07:55 66 06/07/18 07:00 97.5 F L 60 18 133/71 98 06/07/18 06:19 60 06/07/18 06:09 60 06/07/18 03:57 60 06/07/18 03:46 64 06/06/18 22:56 60 06/06/18 22:45 60 06/06/18 22:30 97.4 F L 60 24 140/98 93 L 06/06/18 21:43 97 F L 06/06/18 21:23 60 18 149/68 95 06/06/18 19:45 60 06/06/18 19:17 60 06/06/18 19:03 64 06/06/18 18:44 98.3 F 61 18 145/74 94 L Intake and Output 06/07/18 06/07/18 06/07/18 06:59 14:59 22:59 Intake Total 100 Balance 100 Intake: Oral 100 Other: Voiding Method Urinal Urinal Urinal # Voids 1 4 Weight 114 kg GENERAL EXAM: Alert, active, comfortable in no apparent distress. HEAD: Normocephalic/atraumatic. EYES: Normal reaction of pupils, equal size. Conjunctiva pink, sclera white. NOSE: Clear with pink turbinates. THROAT: No erythema or exudates. NECK: No masses, no JVD, no thyroid enlargement, no adenopathy. CHEST: No chest wall deformity. Symmetrical expansion. Pleurx catheter on the left side of the chest LUNGS: Equal air entry with scattered wheeze, but no rhonchi or dullness. Limited crackles over right lower lobe posteriorly CVS: Regular rate and rhythm, normal S1 and S2, no gallops, no murmurs, no rubs ABDOMEN: Soft, nontender. No hepatosplenomegaly, normal bowel sounds, no guarding or rigidity. EXTREMITIES: No clubbing, no edema, no cyanosis, 2+ pulses and upper and lower extremities. MUSCULOSKELETAL: Muscle strength and tone normal. SPINE: No scoliosis or deformity SKIN: No rashes CENTRAL NERVOUS SYSTEM: Alert and oriented -3. No focal deficits, tone is normal in all 4 extremities. PSYCHIATRIC: Alert and oriented -3. Appropriate affect. Intact judgment and insight. Results - Laboratory Findings CBC and BMP: 06/07/18 05:34 06/07/18 05:34 PT/INR, D-dimer PT 10.9 sec (9.0-12.0) 06/06/18 19:05 INR 1.1 (<1.2) 06/06/18 19:05 D-Dimer 0.69 mg/L FEU (<0.60) H 06/07/18 05:34 Abnormal lab findings: Abnormal Labs 06/06/18 06/06/18 06/06/18 19:05 19:05 19:05 WBC 13.6 H Neutrophils # 11.3 H Lymphocytes # D-Dimer Glucose 127 H POC Glucose (mg/dL) Total Creatine Kinase 393 H CK-MB (CK-2) 5.8 H 06/06/18 06/07/18 06/07/18 22:45 05:34 05:34 WBC 11.2 H Neutrophils # 10.4 H Lymphocytes # 0.5 L D-Dimer 0.69 H Glucose POC Glucose (mg/dL) 125 H Total Creatine Kinase CK-MB (CK-2) 06/07/18 06/07/18 06/07/18 05:34 07:34 11:34 WBC Neutrophils # Lymphocytes # D-Dimer Glucose 171 H POC Glucose (mg/dL) 170 H 153 H Total Creatine Kinase CK-MB (CK-2) - Diagnostic Findings Chest x-ray: report reviewed, image reviewed Additional studies: EKG reviewed Assessment and Plan Plan: Assessment: #1. Acute exacerbation of chronic obstructive pulmonary disease. Chest x-ray was negative for any acute cardiopulmonary findings #2. Recurrent left pleural effusion, fluid cytology was negative for malignancy on 2 different occasions. Status post left-sided Pleurx catheter placement #3. History of COPD #4. Atrial fibrillation, with history of complete AV block, status post permanent pacemaker placement #5. Hypertension #6. Hypothyroidism #7. Hyperlipidemia #8. Macular degeneration Plan: We will request cardiothoracic surgery to drain the left Pleurx catheter, and possibly instill talc before discontinuation of the Pleurx catheter. As far as the COPD treatment, continue with nebulized bronchodilators, IV steroids. We' ll continue to follow I performed a history & physical examination of the patient and discussed their management with my nurse practitioner, Tasha Tello. I reviewed the nurse practitioner's note and agree with the documented findings and plan of care. Lung sounds are positive for diffuse wheezes throughout the lung hunter. The findings and the impression was discussed with the patient. I attest to the documentation by the nurse practitioner. Time with Patient: Greater than 30
[2018-06-07] MEDS: SYMBICORT 160-4.5 MCG INHALER INHALATION SCH (19:38)
[2018-06-07 20:32] LABS: Glucose,Whole Blood 159 mg/dL (75-99)
[2018-06-07] MEDS: amLODIPine 5 MG TAB PO SCH (20:57)
[2018-06-07 21:02] LABS: Hemoglobin A1C 5.9 % (4.0-6.0)
[2018-06-08] MEDS: methylPREDNISolone SOD SUCCI 125 MG/2 ML VIAL IV SCH ×5 (00:27→23:24)
[2018-06-08] MEDS: ALBUTEROL NEBULIZED 2.5 MG/3 ML INHALATION PRN (03:59)
[2018-06-08] MEDS: LEVOTHYROXINE 25 MCG TAB PO SCH (06:26)
[2018-06-08] MEDS ORDERED: LEVOTHYROXINE 25 MCG TAB PO SCH (06:30)
[2018-06-08 07:07] LABS: Glucose,Whole Blood 136 mg/dL (75-99)
[2018-06-08] MEDS: SYMBICORT 160-4.5 MCG INHALER INHALATION SCH ×2 (07:14→20:05)
[2018-06-08] MEDS: IPRATROPIUM-ALBUTEROL 3 ML NEB INHALATION SCH ×4 (07:14→20:05)
[2018-06-08] MEDS: VIT A,C & E-LUTEIN-MINERALS 1 EACH TAB PO SCH (07:51)
[2018-06-08] MEDS: MULTIVITAMINS, THERA 1 EACH TAB PO SCH (07:52)
[2018-06-08] MEDS: HEPARIN SODIUM,PORCINE 5,000 UNIT/ML 1 ML VIAL SQ SCH ×3 (07:52→23:23)
[2018-06-08] MEDS: INSULIN ASPART 100 UNIT/ML 1 ML 10 ML VIAL SQ SCH ×4 (07:52→21:17)
[2018-06-08] MEDS: FUROSEMIDE 40 MG TAB PO SCH (07:52)
[2018-06-08] MEDS: ASPIRIN 81 MG PO SCH (07:52)
[2018-06-08] MEDS: FAMOTIDINE 20 MG TAB PO SCH (07:52)
[2018-06-08] MEDS ORDERED: NON-FORMULARY DRUG (Fish Oil/Dha/Epa [Fish Oil 1,200 Mg Fish Oil] 1 CAP) PO SCH (09:00)
[2018-06-08] MEDS ORDERED: ASPIRIN 81 MG PO SCH (09:00)
--- NOTE | 2018-06-08 09:22 | P.GSCN ---
History of Present Illness Consult date: 06/08/18 Reason for Consult: Removal of Pleurx catheter Requesting physician: Andry Nobles History of present illness: This is a 73-year-old gentleman who is known to our service and who follows with Dr. Schmidt on an outpatient basis. He is a previous medical history of COPD, recurrent left-sided pleural effusion status post Pleurx catheter placement on 03/25/2018, chronic atrial fibrillation on telemetry [place] anticoagulation status post permanent pacemaker, hypertension, hyperlipidemia, macular degeneration, and previous tobacco dependence. Over the previous couple weeks his Pleurx catheter drainage amount has decreased, last drainage was Thursday with 50 mL output. He presented to [facility] yesterday with complaints of increasing shortness of breath. Chest x-ray demonstrated no active cardiopulmonary disease, COPD present, left pleural effusion resolved. He was admitted for COPD exacerbation for treatment with IV steroids. Dr. Aleman cardiothoracic surgery was consulted for removal of Pleurx catheter. Dr. Nobles would like talc instilled prior to removal. Review of Systems Review of systems was completed and was negative except as noted. - Respiratory Reports dyspnea - Endocrine Reports high blood sugars Past Medical History Past Medical History: Atrial Fibrillation, COPD, Eye Disorder, Hyperlipidemia, Hypertension Additional Past Medical History / Comment(s): Macular degeneration, left pleural effusions w/ Pleur-X catheter in LUQ (placed by Dr. Aleman), History of Any Multi-Drug Resistant Organisms: None Reported Past Surgical History: Adenoidectomy, Pacemaker, Tonsillectomy Additional Past Surgical History / Comment(s): Colonoscopy/polypectomy, cataracts - lens implants,. left thoracentesis, [employer], Pleur-X catheter LUQ. Past Anesthesia/Blood Transfusion Reactions: No Reported Reaction Type of Cardiac Device: Permanent Pacemaker Device Placement Date:: 06/2017 Past Psychological History: No Psychological Hx Reported Smoking Status: Former smoker Past Alcohol Use History: Occasional Additional Past Alcohol Use History / Comment(s): smoking: started 1960s- stopped early . States he drinks a beer occasionally. Lives alone. States he rides his bike 4 miles a day. [id number] Chelle is POA. Past Drug Use History: None Reported - Past Family History Mother Family Medical History: Cancer, Diabetes Mellitus Additional Family Medical History / Comment(s): Breast Father Family Medical History: No Reported History Medications and Allergies Home Medications Medication Instructions Recorded Confirmed Type Atorvastatin [Lipitor] 10 mg PO Q48H 01/08/16 06/07/18 History Fish Oil/Dha/Epa [Fish Oil 1,200 1 cap PO DAILY 01/08/16 06/07/18 History mg Fish Oil] Multivitamin [Men's Multi-Vitamin] 1 tab PO DAILY 01/08/16 06/07/18 History Vits A,C,E/Lutein/Minerals 1 tab PO DAILY 01/08/16 06/07/18 History [Ocuvite with Lutein Tablet] Albuterol Inhaler [Ventolin Hfa 1 - 2 puff INHALATION RT-Q6H PRN 06/23/17 History Inhaler] Budesonide/Formoterol Fumarate 2 puff INHALATION RT-BID 06/23/17 06/07/18 History [Symbicort 160-4.5 Mcg Inhaler] Furosemide [Lasix] 40 mg PO DAILY tab 06/27/17 06/07/18 Rx Levothyroxine Sodium [Synthroid] 25 mcg PO DAILY@0630 tab 06/27/17 06/07/18 Rx Apixaban [Eliquis] 5 mg PO BID 02/17/18 06/07/18 History amLODIPine [Norvasc] 5 mg PO HS 02/17/18 06/07/18 History Aspirin [Adult Low Dose Aspirin EC] 81 mg PO DAILY 03/22/18 06/07/18 History Saw [place] 500 mg PO TID 06/07/18 06/07/18 History Allergies Allergy/AdvReac Type Severity Reaction Status Date / Time No Known Allergies Allergy Verified 06/07/18 06:07 Surgical - Exam Vital Signs Temp Pulse Resp BP Pulse Ox 98.3 F 61 18 145/74 94 L 06/06/18 18:44 06/06/18 18:44 06/06/18 18:44 06/06/18 18:44 06/06/18 18:44 - General well developed, well nourished, no distress, no pain, chronically ill - Eyes PERRL, normal ocular movement - ENT no hearing loss - Neck no masses, no bruits, trachea midline - Respiratory Lungs sounds diminished bilaterally. Respirations even, nonlabored. Currently on 4 L nasal cannula with oxygen saturation 97%. Left-sided Pleurx catheter present, covered by intact dressing. - Cardiovascular S1, S2 present. Regular rate and rhythm. Palpable peripheral pulses bilaterally. No edema present. No calf pain or tenderness noted. - Abdomen Abdomen: soft, non tender, bowel sounds - Genitourinary Deferred - Rectum Deferred - Integumentary no rash, no growths, no abnormal pigmentation - Neurologic normal coordination, normal sensation - Musculoskeletal normal gait - Psychiatric oriented to time, oriented to person, oriented to place, speech is normal, memory intact Results - Labs 06/07/18 05:34 06/07/18 05:34 Abnormal Lab Results - Last 24 Hours (Table) 06/07/18 06/07/18 06/07/18 Range/Units 11:34 17:12 20:25 POC Glucose (mg/dL) 153 H 157 H 159 H (75-99) mg/dL 06/08/18 Range/Units 07:06 POC Glucose (mg/dL) 136 H (75-99) mg/dL Microbiology - Last 24 Hours (Table) 06/07/18 05:34 Blood Culture - Preliminary Blood No Growth after 24 hours Diabetes panel 06/07/18 Range/Units 05:34 Hemoglobin A1c 5.9 (4.0-6.0) % - Imaging Chest x-ray: report reviewed, image reviewed EKG: image reviewed Assessment and Plan (1) History of pleural effusion Current Visit: No Status: Resolved Code(s): Z87.09 - PERSONAL HISTORY OF OTHER DISEASES OF THE RESPIRATORY SYSTEM SNOMED Code(s): 128589006 (2) History of atrial fibrillation Current Visit: Yes Status: Chronic Code(s): Z86.79 - PERSONAL HISTORY OF OTHER DISEASES OF THE CIRCULATORY SYSTEM SNOMED Code(s): 388398672 (3) History of permanent cardiac pacemaker placement Current Visit: Yes Status: Chronic Code(s): Z95.0 - PRESENCE OF CARDIAC PACEMAKER SNOMED Code(s): 383172699 (4) Hypertension Current Visit: Yes Status: Chronic Code(s): I10 - ESSENTIAL (PRIMARY) HYPERTENSION SNOMED Code(s): 07729067 (5) Hyperlipidemia Current Visit: Yes Status: Chronic Code(s): E78.5 - HYPERLIPIDEMIA, UNSPECIFIED SNOMED Code(s): 03165181 (6) Chronic anticoagulation Current Visit: Yes Status: Chronic Code(s): Z79.01 - [employer]ER (CURRENT) USE OF ANTICOAGULANTS SNOMED Code(s): 225396161 (7) Tobacco dependence in remission Current Visit: No Status: Resolved Code(s): F17.201 - NICOTINE DEPENDENCE, UNSPECIFIED, IN REMISSION SNOMED Code(s): 892534250 (8) Acute exacerbation of chronic obstructive airways disease Current Visit: Yes Status: Acute Code(s): J44.1 - CHRONIC OBSTRUCTIVE PULMONARY DISEASE W (ACUTE) EXACERBATION SNOMED Code(s): 316184881 Plan: The patient was seen and examined at the bedside. Chart/diagnostics were reviewed. Case to be discussed with cardiothoracic surgery. We will drain his Pleurx catheter one more time today. We will plan for removal of Pleurx catheter, timing to be discussed. Anticoagulation held at this time. COPD, steroid management per pulmonology. Incentive spirometry ordered, encourage patient to 10 times every hour. Increase activity, ambulate as tolerated. Medical management of other comorbidities per primary care service. More recommendations to follow. Thank you Dr. Nobles for this consult. We look forward to working with you in the care of your patient. Time with Patient: Greater than 30
[2018-06-08 09:25] LABS: Basophils % (A) 0 %; Eosinophils % (A) 0 %; HCT 43.5 % (39.0-53.0); HGB 13.3 gm/dL (13.0-17.5); Hypochromasia Slight; Lymphocytes # (A) 0.9 k/uL (1.0-4.8); Lymphocytes % (A) 5 %; MCH 25.7 pg (25.0-35.0); MCHC 30.6 g/dL (31.0-37.0); Mean Platelet Volume 6.5; Monocytes # (A) 0.7 k/uL (0-1.0); Monocytes % (A) 5 %; Neutrophils # (A) 14.7 k/uL (1.3-7.7); Neutrophils % (A) 90 %; Platelet Count 214 k/uL (150-450); RBC 5.17 m/uL (4.30-5.90); RDW 14.4 % (11.5-15.5); WBC 16.4 k/uL (3.8-10.6)
[2018-06-08 09:33] LABS: ALT 32 U/L (21-72); AST 40 U/L (17-59); Alkaline Phosphatase 57 U/L (38-126); Anion Gap 13 mmol/L; Blood Urea Nitrogen 25 mg/dL (9-20); Calcium 9.7 mg/dL (8.4-10.2); Carbon Dioxide 26 mmol/L (22-30); Chloride 101 mmol/L (98-107); Glucose 137 mg/dL (74-99); Potassium 4.5 mmol/L (3.5-5.1); Sodium 140 mmol/L (137-145); Total Bilirubin 0.5 mg/dL (0.2-1.3); Total Protein 6.9 g/dL (6.3-8.2)
--- NOTE | 2018-06-08 09:53 | P.PN ---
Subjective Progress Note Date: 06/08/18 This is a 73-year-old male patient who presented to the emergency room with complaints of increased shortness of breath. Patient states that shortness of breath had been progressively increasing throughout the weekend. Patient has a known past medical history of COPD and pleural effusion. Patient does have a Pleurx catheter to left side placed in March per Dr. Aleman. Patient states he gets Pleurx drained every Thursday and Thursday. Patient did state he got 50 mL out on Thursday. Patient does follow with Dr. Sandhu per pulmonary services. Additional medical history includes atrial fibrillation in which she takes eliquis, Permanent pacemaker, macular degeneration, hyperlipidemia and hypertension. Chest x-ray completed emergency room showing probable COPD. No active cardiopulmonary disease. No change. Dr. Sandhu consulted for pulmonary services. EKG completed showing undetermined rhythm nonspecific intraventricular block. Patient does have a pacemaker. Patient states he does have advanced her active but does not have it currently present with him. Patient is alert and oriented 3 and states that he would like CPR but no mechanical ventilation. Patient started on Solu-Medrol 60 mg every 6 hours and breathing treatments. At this time patient denies chest pain. Does state shortness of breath with increased activity. Patient denies nausea vomiting or diarrhea. Patient denies any urinary burning or frequency On 06/08/2018 patient states breathing is much improved. Patient is alert and oriented 3. Patient remains liters nasal cannula. Patient denies chest pain. Patient is still having shortness of breath with activity. Patient denies nausea vomiting or diarrhea. Patient denies any urinary burning or frequency Objective - Vital Signs Vital signs: Vital Signs Temp 96.8 F L 06/08/18 06:18 Pulse 63 06/08/18 07:25 Resp 16 06/08/18 06:18 BP 118/71 06/08/18 06:18 Pulse Ox 97 06/08/18 07:14 Intake & Output 06/07/18 06/08/18 06/08/18 18:59 06:59 18:59 Other: Voiding Method Urinal # Voids 2 2 - Exam Head normocephalic Neck supple Lungs lower lungs expiratory wheezing. Diminished throughout Heart regular rate and rhythm S1-S2, no rub or gallop Abdomen is soft nontender nondistended positive bowel sounds no hepatosplenomegaly Extremities no edema Neuro alert and orientated to 3 - Labs CBC & Chem 7: 06/08/18 08:07 06/08/18 08:07 Labs: Abnormal Lab Results - Last 24 Hours (Table) 06/07/18 06/07/18 06/07/18 Range/Units 11:34 17:12 20:25 WBC (3.8-10.6) k/uL MCHC (31.0-37.0) g/dL Neutrophils # (1.3-7.7) k/uL Lymphocytes # (1.0-4.8) k/uL BUN (9-20) mg/dL Glucose (74-99) mg/dL POC Glucose (mg/dL) 153 H 157 H 159 H (75-99) mg/dL 06/08/18 06/08/18 06/08/18 Range/Units 07:06 08:07 08:07 WBC 16.4 H (3.8-10.6) k/uL MCHC 30.6 L (31.0-37.0) g/dL Neutrophils # 14.7 H (1.3-7.7) k/uL Lymphocytes # 0.9 L (1.0-4.8) k/uL BUN 25 H (9-20) mg/dL Glucose 137 H (74-99) mg/dL POC Glucose (mg/dL) 136 H (75-99) mg/dL Microbiology - Last 24 Hours (Table) 06/07/18 05:34 Blood Culture - Preliminary Blood No Growth after 24 hours Assessment and Plan Assessment: 1. COPD exacerbation. Chest x-ray completed showing probable COPD. No active cardiopulmonary disease. No change. Patient started on Solu-Medrol every 6 hours and updraft breathing treatments. Dr. Sandhu per pulmonary services consulted. Dr. Aleman her cardiothoracic surgery consulted due to Pleurx catheter plan to drain Pleurx catheter one more time today. Plan also to remove Pleurx catheter eventually during this admission 2. Frequent pleural effusions with Pleurx catheter placement. Fluid cytology was negative on 2 different occasions per pulmonary. Patient had Pleurx catheter placed in March per Dr. Aleman. Patient gets Pleurx catheter drained every Thursday and Thursday. Patient states he 50 mL of drainage on Thursday. Patient's home Lasix [address] Aleman her cardiothoracic surgery consulted due to Pleurx catheter plan to drain Pleurx catheter one more time today. Plan also to remove Pleurx catheter eventually during this admission 3. History of atrial fibrillation. Patient currently on eliquis 4. History of permanent pacemaker placement. Placed June 2017. 5. History of essential hypertension. Continue Norvasc 6. Hypothyroidism. Continue Synthroid 7. History of Macular degeneration 8. History of hyperlipidemia. Continue Lipitor 9. Hyperglycemia due to steroids. Sliding scale insulin has been added 10. Leukocytosis. Blood culture has been ordered. Patient is on steroids. WBC 11.2 DVT prophylaxis eliquis. GI prophylaxis Pepcid
[2018-06-08 11:48] LABS: Glucose,Whole Blood 161 mg/dL (75-99)
--- NOTE | 2018-06-08 16:04 | P.PN ---
Subjective Progress Note Date: 06/08/18 Principal diagnosis: Acute exacerbation of chronic obstructive pulmonary disease, recurrent left pleural effusion, with Plurix catheter This is a 73-year-old white male patient of Dr. Schmidt, with an underlying history of COPD, history of left pleural effusions with previous history of thoracentesis, and placement of a Pleurx catheter. He had recurrent pleural effusions was not determined, but was thought to be postinflammatory in nature secondary to permanent pacemaker implantation in June. Cytology on 2 different occasions has been negative. CT scan of the chest did not show evidence of malignancy. The pleural fluid analysis showed exudative pleural fluid. Patient underwent Pleurx catheter insertion, and the amount of output from the catheter has been decreasing. He was feeling less short of breath, and was not requiring oxygen. He was recently seen in the office by Dr. Nobles, he was doing well, he was placed on some steroids regarding the ongoing effusion production. Patient was started on the cold to seen 0.6 mg by mouth. Patient was draining on average of 50-75 ML from the pleural catheter on the daily basis. Patient received of influenza vaccine in the office, subsequently he started experiencing increased coughing, wheezing, shortness of breath. Chest x-ray showed no active cardiopulmonary process. EKG showed paced rhythm. Lab work showed WBC of 11.2, hemoglobin of 13.5, d-dimer 0.69, electrocerebral profile were all within normal limits, LFTs were normal, no fever or chills, patient is on 2 L per nasal cannula, his pulse ox is 95%. Patient was started on nebulized bronchodilators, IV steroids and today we're seeing this patient in regards to acute COPD exacerbation. Other medical history includes atrial fibrillation, on Eliquis, permanent pacemaker insertion , macular degeneration, hypertension, hyperlipidemia. On 06/08/2018 patient seen in follow-up on medical surgical floor. He is seen ambulating in the room, in no acute distress, breathing easier. Lung sounds are positive for scattered rhonchi over left lower lobe, significant wheezing on today's exam. No cough. No fever, no chills, room air pulse ox is 96%, patient is afebrile. Blood cultures are negative, CT surgery has drained left- sided Pleurx catheter, with hardly any output. Objective - Vital Signs Vital signs: Vital Signs Temp 98.3 F 06/08/18 15:00 Pulse 60 06/08/18 15:00 Resp 18 06/08/18 15:00 BP 130/62 06/08/18 15:00 Pulse Ox 96 06/08/18 15:00 Intake & Output 06/07/18 06/08/18 06/08/18 18:59 06:59 18:59 Other: Voiding Method Urinal # Voids 2 2 3 - Exam GENERAL EXAM: Alert, active, comfortable in no apparent distress. HEAD: Normocephalic/atraumatic. EYES: Normal reaction of pupils, equal size. Conjunctiva pink, sclera white. NOSE: Clear with pink turbinates. THROAT: No erythema or exudates. NECK: No masses, no JVD, no thyroid enlargement, no adenopathy. CHEST: No chest wall deformity. Symmetrical expansion. Pleurx catheter on the left side of the chest LUNGS: Equal air entry with limited rhonchi over left lower lobe, no wheezes, no dullness. CVS: Regular rate and rhythm, normal S1 and S2, no gallops, no murmurs, no rubs ABDOMEN: Soft, nontender. No hepatosplenomegaly, normal bowel sounds, no guarding or rigidity. EXTREMITIES: No clubbing, no edema, no cyanosis, 2+ pulses and upper and lower extremities. MUSCULOSKELETAL: Muscle strength and tone normal. SPINE: No scoliosis or deformity SKIN: No rashes CENTRAL NERVOUS SYSTEM: Alert and oriented -3. No focal deficits, tone is normal in all 4 extremities. PSYCHIATRIC: Alert and oriented -3. Appropriate affect. Intact judgment and insight. - Labs CBC & Chem 7: 06/08/18 08:07 06/08/18 08:07 Labs: Abnormal Lab Results - Last 24 Hours (Table) 06/07/18 06/07/18 06/08/18 Range/Units 17:12 20:25 07:06 WBC (3.8-10.6) k/uL MCHC (31.0-37.0) g/dL Neutrophils # (1.3-7.7) k/uL Lymphocytes # (1.0-4.8) k/uL BUN (9-20) mg/dL Glucose (74-99) mg/dL POC Glucose (mg/dL) 157 H 159 H 136 H (75-99) mg/dL 06/08/18 06/08/18 06/08/18 Range/Units 08:07 08:07 11:46 WBC 16.4 H (3.8-10.6) k/uL MCHC 30.6 L (31.0-37.0) g/dL Neutrophils # 14.7 H (1.3-7.7) k/uL Lymphocytes # 0.9 L (1.0-4.8) k/uL BUN 25 H (9-20) mg/dL Glucose 137 H (74-99) mg/dL POC Glucose (mg/dL) 161 H (75-99) mg/dL Microbiology - Last 24 Hours (Table) 06/07/18 05:34 Blood Culture - Preliminary Blood No Growth after 24 hours Assessment and Plan Plan: Assessment: #1. Acute exacerbation of chronic obstructive pulmonary disease. Chest x-ray was negative for any acute cardiopulmonary findings #2. Recurrent left pleural effusion, fluid cytology was negative for malignancy on 2 different occasions. Status post left-sided Pleurx catheter placement #3. History of COPD #4. Atrial fibrillation, with history of complete AV block, status post permanent pacemaker placement #5. Hypertension #6. Hypothyroidism #7. Hyperlipidemia #8. Macular degeneration Plan: Hardly any output out of the left Pleurx catheter, CT surgery is following, and the plan is to discontinue the Pleurx catheter some time on , Eliquis is on hold. No worsening shortness of breath, patient is tolerating ambulation , vital signs are stable, no wheezing, some residual congestion, but overall patient is improving. Continue current medical treatment. I performed a history & physical examination of the patient and discussed their management with my nurse practitioner, Tasha Tello. I reviewed the nurse practitioner's note and agree with the documented findings and plan of care. Lung sounds are positive for diffuse wheezes throughout the lung hunter. The findings and the impression was discussed with the patient. I attest to the documentation by the nurse practitioner. Time with Patient: Less than 30
[2018-06-08 17:01] LABS: Glucose,Whole Blood 150 mg/dL (75-99)
[2018-06-08] MEDS: amLODIPine 5 MG TAB PO SCH (20:37)
[2018-06-08 20:56] LABS: Glucose,Whole Blood 155 mg/dL (75-99)
[2018-06-08] MEDS ORDERED: ATORVASTATIN 10 MG TAB PO SCH (21:00)
[2018-06-09] MEDS: methylPREDNISolone SOD SUCCI 125 MG/2 ML VIAL IV SCH ×4 (06:13→23:16)
[2018-06-09] MEDS: LEVOTHYROXINE 25 MCG TAB PO SCH (06:13)
[2018-06-09 07:29] LABS: Glucose,Whole Blood 139 mg/dL (75-99)
[2018-06-09] MEDS: INSULIN ASPART 100 UNIT/ML 1 ML 10 ML VIAL SQ SCH ×4 (07:49→21:36)
[2018-06-09] MEDS: FAMOTIDINE 20 MG TAB PO SCH (07:50)
[2018-06-09] MEDS: HEPARIN SODIUM,PORCINE 5,000 UNIT/ML 1 ML VIAL SQ SCH ×3 (07:50→23:17)
[2018-06-09] MEDS: FUROSEMIDE 40 MG TAB PO SCH (07:50)
[2018-06-09] MEDS: ASPIRIN 81 MG PO SCH (07:50)
[2018-06-09] MEDS: MULTIVITAMINS, THERA 1 EACH TAB PO SCH (07:50)
[2018-06-09] MEDS: VIT A,C & E-LUTEIN-MINERALS 1 EACH TAB PO SCH (07:50)
[2018-06-09] MEDS: SYMBICORT 160-4.5 MCG INHALER INHALATION SCH ×2 (08:37→19:48)
[2018-06-09] MEDS: IPRATROPIUM-ALBUTEROL 3 ML NEB INHALATION SCH ×4 (08:37→19:48)
--- NOTE | 2018-06-09 10:17 | P.PN ---
Subjective Progress Note Date: 06/09/18 This is a 73-year-old male patient who presented to the emergency room with complaints of increased shortness of breath. Patient states that shortness of breath had been progressively increasing throughout the weekend. Patient has a known past medical history of COPD and pleural effusion. Patient does have a Pleurx catheter to left side placed in March per Dr. Aleman. Patient states he gets Pleurx drained every Thursday and Thursday. Patient did state he got 50 mL out on Thursday. Patient does follow with Dr. Sandhu per pulmonary services. Additional medical history includes atrial fibrillation in which she takes eliquis, Permanent pacemaker, macular degeneration, hyperlipidemia and hypertension. Chest x-ray completed emergency room showing probable COPD. No active cardiopulmonary disease. No change. Dr. Sandhu consulted for pulmonary services. EKG completed showing undetermined rhythm nonspecific intraventricular block. Patient does have a pacemaker. Patient states he does have advanced her active but does not have it currently present with him. Patient is alert and oriented 3 and states that he would like CPR but no mechanical ventilation. Patient started on Solu-Medrol 60 mg every 6 hours and breathing treatments. At this time patient denies chest pain. Does state shortness of breath with increased activity. Patient denies nausea vomiting or diarrhea. Patient denies any urinary burning or frequency On 06/08/2018 patient states breathing is much improved. Patient is alert and oriented 3. Patient remains liters nasal cannula. Patient denies chest pain. Patient is still having shortness of breath with activity. Patient denies nausea vomiting or diarrhea. Patient denies any urinary burning or frequency On 06/09/2018 patient is currently alert and oriented 3. Patient is currently resting comfortably in bed. Patient states breathing is much improved. Plan for pleurax catheter removal tomorrow per surgical. Eliquis currently on hold. Patient denies chest pain. Patient denies nausea vomiting or diarrhea. Patient denies any urinary burning or frequency Objective - Vital Signs Vital signs: Vital Signs Temp 98.1 F 06/09/18 06:19 Pulse 64 06/09/18 08:51 Resp 18 06/09/18 06:19 BP 146/82 06/09/18 06:19 Pulse Ox 98 06/09/18 06:19 Intake & Output 06/08/18 06/09/18 06/09/18 18:59 06:59 18:59 Other: Voiding Method Urinal # Voids 3 2 - Exam Head normocephalic Neck supple Lungs lower lungs expiratory wheezing. Diminished throughout Heart regular rate and rhythm S1-S2, no rub or gallop Abdomen is soft nontender nondistended positive bowel sounds no hepatosplenomegaly Extremities no edema Neuro alert and orientated to 3 - Labs CBC & Chem 7: 06/08/18 08:07 06/08/18 08:07 Labs: Abnormal Lab Results - Last 24 Hours (Table) 06/08/18 06/08/18 06/08/18 Range/Units 11:46 16:58 20:54 POC Glucose (mg/dL) 161 H 150 H 155 H (75-99) mg/dL 06/09/18 Range/Units 07:23 POC Glucose (mg/dL) 139 H (75-99) mg/dL Microbiology - Last 24 Hours (Table) 06/07/18 05:34 Blood Culture - Preliminary Blood No Growth after 48 hours Assessment and Plan Assessment: 1. COPD exacerbation. Chest x-ray completed showing probable COPD. No active cardiopulmonary disease. No change. Patient started on Solu-Medrol every 6 hours and updraft breathing treatments. Dr. Sandhu per pulmonary services consulted. Dr. Aleman her cardiothoracic surgery consulted due to Pleurx catheter plan to drain Pleurx catheter one more time today. Plan to remove Pleurx catheter tomorrow per cardiovascular surgical team. Eliquis currently on hold 2. Frequent pleural effusions with Pleurx catheter placement. Fluid cytology was negative on 2 different occasions per pulmonary. Patient had Pleurx catheter placed in March per Dr. Aleman. Patient gets Pleurx catheter drained every Thursday and Thursday. Patient states he 50 mL of drainage on Thursday. Patient's home Lasix [address] Aleman her cardiothoracic surgery consulted due to Pleurx catheter plan to drain Pleurx catheter one more time today. Plan to remove Pleurx catheter tomorrow per cardiovascular surgical team. Eliquis currently on hold. Per pulmonary services hardly any output out of the left Pleurx catheter. 3. History of atrial fibrillation. Patient currently on eliquis. Eliquis currently on hold to removal of pleurax catheter tomorrow 4. History of permanent pacemaker placement. Placed June 2017. 5. History of essential hypertension. Continue Norvasc 6. Hypothyroidism. Continue Synthroid 7. History of Macular degeneration 8. History of hyperlipidemia. Continue Lipitor 9. Hyperglycemia due to steroids. Sliding scale insulin has been added 10. Leukocytosis. Blood culture has been ordered. Patient is on steroids. WBC 11.2. Blood culture showing no growth DVT prophylaxis SCDs while eliquis on hold. GI prophylaxis Pepcid I performed an examination of the patient and discussed their management with the Nurse Practitioner. I have reviewed the Nurse Practitioner's notes and agree with the documented findings and plan of care
[2018-06-09 11:13] LABS: Glucose,Whole Blood 174 mg/dL (75-99)
[2018-06-09 11:39] LABS: ALT 50 U/L (21-72); AST 42 U/L (17-59); Albumin 3.7 g/dL (3.5-5.0); Alkaline Phosphatase 50 U/L (38-126); Anion Gap 8 mmol/L; Blood Urea Nitrogen 29 mg/dL (9-20); Calcium 9.4 mg/dL (8.4-10.2); Carbon Dioxide 28 mmol/L (22-30); Chloride 103 mmol/L (98-107); Glucose 128 mg/dL (74-99); Potassium 4.7 mmol/L (3.5-5.1); Sodium 139 mmol/L (137-145); Total Bilirubin 0.4 mg/dL (0.2-1.3); Total Protein 6.3 g/dL (6.3-8.2)
[2018-06-09 11:55] LABS: Basophils % (A) 0 %; Eosinophils % (A) 0 %; HCT 41.1 % (39.0-53.0); HGB 13.4 gm/dL (13.0-17.5); Lymphocytes # (A) 0.5 k/uL (1.0-4.8); Lymphocytes % (A) 4 %; MCH 26.8 pg (25.0-35.0); MCHC 32.6 g/dL (31.0-37.0); MCV 82.3 fL (80.0-100.0); Mean Platelet Volume 6.9; Monocytes # (A) 0.7 k/uL (0-1.0); Monocytes % (A) 5 %; Neutrophils # (A) 11.5 k/uL (1.3-7.7); Neutrophils % (A) 90 %; Platelet Count 216 k/uL (150-450); RBC 4.99 m/uL (4.30-5.90); RDW 14.4 % (11.5-15.5); WBC 12.8 k/uL (3.8-10.6)
--- NOTE | 2018-06-09 14:06 | P.PN ---
Subjective Progress Note Date: 06/09/18 Principal diagnosis: Acute exacerbation of chronic obstructive pulmonary disease, recurrent left pleural effusion, with Pleurx catheter This is a 73-year-old white male patient of Dr. Schmidt, with an underlying history of COPD, history of left pleural effusions with previous history of thoracentesis, and placement of a Pleurx catheter. He had recurrent pleural effusions was not determined, but was thought to be postinflammatory in nature secondary to permanent pacemaker implantation in June. Cytology on 2 different occasions has been negative. CT scan of the chest did not show evidence of malignancy. The pleural fluid analysis showed exudative pleural fluid. Patient underwent Pleurx catheter insertion, and the amount of output from the catheter has been decreasing. He was feeling less short of breath, and was not requiring oxygen. He was recently seen in the office by Dr. Nobles, he was doing well, he was placed on some steroids regarding the ongoing effusion production. Patient was started on the cold to seen 0.6 mg by mouth. Patient was draining on average of 50-75 ML from the pleural catheter on the daily basis. Patient received of influenza vaccine in the office, subsequently he started experiencing increased coughing, wheezing, shortness of breath. Chest x-ray showed no active cardiopulmonary process. EKG showed paced rhythm. Lab work showed WBC of 11.2, hemoglobin of 13.5, d-dimer 0.69, electrocerebral profile were all within normal limits, LFTs were normal, no fever or chills, patient is on 2 L per nasal cannula, his pulse ox is 95%. Patient was started on nebulized bronchodilators, IV steroids and today we're seeing this patient in regards to acute COPD exacerbation. Other medical history includes atrial fibrillation, on Eliquis, permanent pacemaker insertion , macular degeneration, hypertension, hyperlipidemia. On 06/08/2018 patient seen in follow-up on medical surgical floor. He is seen ambulating in the room, in no acute distress, breathing easier. Lung sounds are positive for scattered rhonchi over left lower lobe, significant wheezing on today's exam. No cough. No fever, no chills, room air pulse ox is 96%, patient is afebrile. Blood cultures are negative, CT surgery has drained left- sided Pleurx catheter, with hardly any output. The patient is seen again today 06/09/2018 in follow-up on the regular medical floor. He is awake and alert in no acute distress. He denies any worsening shortness of breath, cough or congestion. He continues to maintain good O2 saturations in the 90s on room air. There is been minimal output of the Pleurx catheter and the plan is for removal by CT services tomorrow. Objective - Vital Signs Vital signs: Vital Signs Temp 98.1 F 06/09/18 06:19 Pulse 60 06/09/18 11:40 Resp 18 06/09/18 06:19 BP 146/82 06/09/18 06:19 Pulse Ox 98 06/09/18 06:19 Intake & Output 06/08/18 06/09/18 06/09/18 18:59 06:59 18:59 Other: Voiding Method Urinal # Voids 3 2 2 - Exam GENERAL EXAM: Alert, active, comfortable in no apparent distress. HEAD: Normocephalic/atraumatic. EYES: Normal reaction of pupils, equal size. Conjunctiva pink, sclera white. NOSE: Clear with pink turbinates. THROAT: No erythema or exudates. NECK: No masses, no JVD, no thyroid enlargement, no adenopathy. CHEST: No chest wall deformity. Symmetrical expansion. Pleurx catheter on the left side of the chest LUNGS: Equal air entry with limited rhonchi over left lower lobe, no wheezes, no dullness. CVS: Regular rate and rhythm, normal S1 and S2, no gallops, no murmurs, no rubs ABDOMEN: Soft, nontender. No hepatosplenomegaly, normal bowel sounds, no guarding or rigidity. EXTREMITIES: No clubbing, no edema, no cyanosis, 2+ pulses and upper and lower extremities. MUSCULOSKELETAL: Muscle strength and tone normal. SPINE: No scoliosis or deformity SKIN: No rashes CENTRAL NERVOUS SYSTEM: Alert and oriented -3. No focal deficits, tone is normal in all 4 extremities. PSYCHIATRIC: Alert and oriented -3. Appropriate affect. Intact judgment and insight. - Labs CBC & Chem 7: 06/09/18 10:43 06/09/18 10:43 Labs: Abnormal Lab Results - Last 24 Hours (Table) 06/08/18 06/08/18 06/09/18 Range/Units 16:58 20:54 07:23 WBC (3.8-10.6) k/uL Neutrophils # (1.3-7.7) k/uL Lymphocytes # (1.0-4.8) k/uL BUN (9-20) mg/dL Glucose (74-99) mg/dL POC Glucose (mg/dL) 150 H 155 H 139 H (75-99) mg/dL 06/09/18 06/09/18 06/09/18 Range/Units 10:43 10:43 11:08 WBC 12.8 H (3.8-10.6) k/uL Neutrophils # 11.5 H (1.3-7.7) k/uL Lymphocytes # 0.5 L (1.0-4.8) k/uL BUN 29 H (9-20) mg/dL Glucose 128 H (74-99) mg/dL POC Glucose (mg/dL) 174 H (75-99) mg/dL Microbiology - Last 24 Hours (Table) 06/07/18 05:34 Blood Culture - Preliminary Blood No Growth after 48 hours Assessment and Plan Assessment: Assessment: #1. Acute exacerbation of chronic obstructive pulmonary disease. Chest x-ray was negative for any acute cardiopulmonary findings #2. Recurrent left pleural effusion, fluid cytology was negative for malignancy on 2 different occasions. Status post left-sided Pleurx catheter placement #3. History of COPD #4. Atrial fibrillation, with history of complete AV block, status post permanent pacemaker placement #5. Hypertension #6. Hypothyroidism #7. Hyperlipidemia #8. Macular degeneration Plan: The patient was seen and evaluated by Dr. Nobles. He is stable from the pulmonary standpoint. Plan is for removal of the Pleurx catheter tomorrow by CT services. We'll continue to increase his activity as tolerated. We'll continue to follow. I, the cosigning physician, performed a history & physical examination of the patient. Lungs sounds with faint end expiratory wheeze. Maintaining good O2 saturations in the 90s on room air. I discussed the assessment and plan of care with my nurse practitioner, Yi Don. I attest to the above note as dictated by her.
[2018-06-09 17:30] LABS: Glucose,Whole Blood 134 mg/dL (75-99)
[2018-06-09] MEDS: amLODIPine 5 MG TAB PO SCH (20:51)
[2018-06-09 21:11] LABS: Glucose,Whole Blood 144 mg/dL (75-99)
[2018-06-10] MEDS: methylPREDNISolone SOD SUCCI 125 MG/2 ML VIAL IV SCH ×2 (05:49→12:14)
[2018-06-10] MEDS: LACTATED RINGERS 1,000 ML IV SCH ×3 (05:58→07:29)
[2018-06-10] MEDS ORDERED: HYDROmorphone 0.5 MG/0.5 ML SYRINGE IVP PRN (06:00)
[2018-06-10] MEDS ORDERED: MIDAZOLAM 2 MG/2 ML VIAL IV PRN (06:00)
[2018-06-10] MEDS ORDERED: LIDOCAINE 1% 20 ML VIAL (10MG/ML) FOR IV START INTRADERMA PRN (06:00)
[2018-06-10] MEDS ORDERED: DEXAMETHASONE SOD PHOSPHATE 10 MG/ML 1 ML VIAL IV ONE (06:00)
[2018-06-10] MEDS ORDERED: ONDANSETRON 4 MG/2 ML VIAL IVP ONE (06:00)
[2018-06-10] MEDS ORDERED: SCOPOLAMINE 1.5MG/72HR PATCH TRANSDERM ONE (06:00)
[2018-06-10 06:42] VITALS: RESP 18; TEMP 98.2
[2018-06-10 07:23] LABS: INR 1.2 (<1.2); Prothrombin Time 11.6 sec (9.0-12.0)
[2018-06-10] MEDS ORDERED: KETAMINE 10 MG/ML 20 ML VIAL ONE (07:29)
[2018-06-10] MEDS ORDERED: diphenhydrAMINE 50 MG/ML 1 ML VIAL ONE (07:29)
[2018-06-10] MEDS ORDERED: LIDOCAINE 1% INJ 10MG/ML (20 ML MDV) ONE (07:29)
[2018-06-10] MEDS ORDERED: MIDAZOLAM 2 MG/2 ML VIAL ONE (07:29)
[2018-06-10] MEDS ORDERED: PROPOFOL 10 MG/ML 20 ML VIAL IV ONE (07:29)
[2018-06-10] MEDS ORDERED: fentaNYL (PF) 50 MCG/ML 2 ML AMP ONE (07:29)
[2018-06-10] MEDS ORDERED: LIDOCAINE 1% INJ 10MG/ML (20 ML MDV) SQ ONE ×2 (07:41)
[2018-06-10] MEDS: IPRATROPIUM-ALBUTEROL 3 ML NEB INHALATION SCH ×2 (07:46→12:03)
[2018-06-10] MEDS: SYMBICORT 160-4.5 MCG INHALER INHALATION SCH (07:46)
--- NOTE | 2018-06-10 07:46 | P.PN ---
Subjective Progress Note Date: 06/10/18 Principal diagnosis: COPD exacerbation. History of recurrent left-sided pleural effusion status post Pleurx catheter placement March 2018, chronic A. fib on Eliquis for anticoagulation status post permanent pacemaker, hypertension, hyperlipidemia, macular degeneration, and previous tobacco dependence. Patient is currently in the OR having his left-sided Pleurx catheter removed. Was in no acute distress this morning. Denied pain, stated shortness of breath has decreased with current treatment. Objective - Vital Signs Vital signs: Vital Signs Temp 98.2 F 06/10/18 06:40 Pulse 60 06/10/18 06:40 Resp 18 06/10/18 06:40 BP 151/86 06/10/18 06:40 Pulse Ox 94 L 06/10/18 06:40 Intake & Output 06/09/18 06/10/18 06/10/18 18:59 06:59 18:59 Intake Total 600 340 Balance 600 340 Intake: Oral 600 340 Other: Voiding Method Urinal Toilet Urinal # Voids 1 1 - Constitutional General appearance: Present: cooperative, no acute distress - Respiratory Details: Lungs sounds diminished bilaterally. Respirations even, nonlabored. Was on room air with oxygen saturation 94%. - Cardiovascular Details: S1, S2 present. Regular rate and rhythm. Palpable peripheral pulses bilaterally. No edema present. No Other tenderness noted. - Gastrointestinal Gastrointestinal Comment(s): Abdomen soft, nontender, nondistended. Hyperactive bowel sounds present 4 quadrants. Currently nothing by mouth for surgery. - Genitourinary Genitourinary Comment(s): Continues to void clear, yellow urine. - Integumentary Integumentary Comment(s): Skin was warm, dry, intact with evidence of good perfusion. - Neurologic Neurologic: Present: CNII-XII intact - Musculoskeletal Musculoskeletal: Present: gait normal, strength equal bilaterally - Psychiatric Psychiatric: Present: A&O x's 3, appropriate affect, intact judgment & insight - Allied health notes Allied health notes reviewed: nursing - Labs CBC & Chem 7: 06/09/18 10:43 06/09/18 10:43 Labs: Abnormal Lab Results - Last 24 Hours (Table) 06/09/18 06/09/18 06/09/18 Range/Units 10:43 10:43 11:08 WBC 12.8 H (3.8-10.6) k/uL Neutrophils # 11.5 H (1.3-7.7) k/uL Lymphocytes # 0.5 L (1.0-4.8) k/uL INR (<1.2) BUN 29 H (9-20) mg/dL Glucose 128 H (74-99) mg/dL POC Glucose (mg/dL) 174 H (75-99) mg/dL 06/09/18 06/09/18 06/10/18 Range/Units 17:21 21:00 06:47 WBC (3.8-10.6) k/uL Neutrophils # (1.3-7.7) k/uL Lymphocytes # (1.0-4.8) k/uL INR 1.2 H (<1.2) BUN (9-20) mg/dL Glucose (74-99) mg/dL POC Glucose (mg/dL) 134 H 144 H (75-99) mg/dL Microbiology - Last 24 Hours (Table) 06/07/18 05:34 Blood Culture - Preliminary Blood No Growth after 48 hours Assessment and Plan (1) History of pleural effusion Current Visit: No Status: Resolved Code(s): Z87.09 - PERSONAL HISTORY OF OTHER DISEASES OF THE RESPIRATORY SYSTEM SNOMED Code(s): 200638987 (2) History of atrial fibrillation Current Visit: Yes Status: Chronic Code(s): Z86.79 - PERSONAL HISTORY OF OTHER DISEASES OF THE CIRCULATORY SYSTEM SNOMED Code(s): 003048138 (3) History of permanent cardiac pacemaker placement Current Visit: Yes Status: Chronic Code(s): Z95.0 - PRESENCE OF CARDIAC PACEMAKER SNOMED Code(s): 709286470 (4) Hypertension Current Visit: Yes Status: Chronic Code(s): I10 - ESSENTIAL (PRIMARY) HYPERTENSION SNOMED Code(s): 21552297 (5) Hyperlipidemia Current Visit: Yes Status: Chronic Code(s): E78.5 - HYPERLIPIDEMIA, UNSPECIFIED SNOMED Code(s): 49845555 (6) Chronic anticoagulation Current Visit: Yes Status: Chronic Code(s): Z79.01 - DEBT MANAGEMENT COUNSELOR (CURRENT) USE OF ANTICOAGULANTS SNOMED Code(s): 679489573 (7) Tobacco dependence in remission Current Visit: No Status: Resolved Code(s): F17.201 - NICOTINE DEPENDENCE, UNSPECIFIED, IN REMISSION SNOMED Code(s): 715512713 (8) Acute exacerbation of chronic obstructive airways disease Current Visit: Yes Status: Acute Code(s): J44.1 - CHRONIC OBSTRUCTIVE PULMONARY DISEASE W (ACUTE) EXACERBATION SNOMED Code(s): 856130955 Plan: 1. The patient is currently in the operating room having his Pleurx catheter removed. From our standpoint may be discharged later today when okay with other consultants. 2. Medical management per primary care service. 3. Bronchodilators, steroids per pulmonology. 4. Local wound care with dry dressing change to Pleurx catheter site daily. 5. Please call us with any concerns. Time with Patient: Greater than 30
--- NOTE | 2018-06-10 08:22 | P.OP ---
Date of Procedure: 06/10/18 Preoperative Diagnosis: Recurrent left pleural effusion, status post Pleurx catheter Postoperative Diagnosis: Same Procedure(s) Performed: Removal of left Pleurx catheter Anesthesia: MAC Surgeon: Ash Aleman Estimated Blood Loss (ml): 1 IV fluids (ml): 100 Urine output (ml): 0 Pathology: none sent Condition: stable Disposition: PACU Indications for Procedure: 73-year-old male with recurrent left pleural effusion status post Pleurx drainage for the last 2 months. Drainage is down to minimal. Purse catheter is no longer functioning the patient is stable. Operative Findings: Purse catheter removed without difficulty Description of Procedure: Patient was brought to the operating room placed supine on the operating table. Pleurx dressing was removed. Sterile prep and drape was performed. Sutures securing the Pleurx catheter was removed. Gentle Traction was placed on the Pleurx catheter and 1% lidocaine was infused around the catheter in the subcutaneous tissue. With continued traction, dissection was carried along the purse catheter and its cuff into the subcutaneous tissue using a hemostat. This freed the cuff and the Pleurx catheter was removed without any difficulty. Direct pressure was placed on the wound to control any bleeding. A single 4- 0 Vicryl vertical mattress suture was placed in the subcutaneous tissue to approximate the skin edges. Skin edges were then sealed with skin glue. A Band -Aid dressing was applied.
[2018-06-10 08:34] VITALS: BP 136/84
[2018-06-10] MEDS: INSULIN ASPART 100 UNIT/ML 1 ML 10 ML VIAL SQ SCH ×2 (08:55→11:35)
[2018-06-10 09:45] LABS: Basophils % (A) 0 %; Eosinophils # (A) 0.1 k/uL (0-0.7); Eosinophils % (A) 1 %; HCT 43.4 % (39.0-53.0); HGB 13.2 gm/dL (13.0-17.5); Lymphocytes # (A) 0.6 k/uL (1.0-4.8); Lymphocytes % (A) 6 %; MCHC 30.5 g/dL (31.0-37.0); MCV 85.2 fL (80.0-100.0); Mean Platelet Volume 6.1; Monocytes # (A) 0.5 k/uL (0-1.0); Monocytes % (A) 5 %; Neutrophils # (A) 8.4 k/uL (1.3-7.7); Neutrophils % (A) 87 %; Platelet Count 207 k/uL (150-450); RBC 5.09 m/uL (4.30-5.90); RDW 14.3 % (11.5-15.5); WBC 9.6 k/uL (3.8-10.6)
[2018-06-10 10:02] LABS: ALT 55 U/L (21-72); AST 40 U/L (17-59); Albumin 3.4 g/dL (3.5-5.0); Alkaline Phosphatase 45 U/L (38-126); Anion Gap 7 mmol/L; Blood Urea Nitrogen 24 mg/dL (9-20); Calcium 8.9 mg/dL (8.4-10.2); Carbon Dioxide 29 mmol/L (22-30); Chloride 104 mmol/L (98-107); Glucose 108 mg/dL (74-99); Potassium 4.4 mmol/L (3.5-5.1); Sodium 140 mmol/L (137-145); Total Bilirubin 0.5 mg/dL (0.2-1.3)
[2018-06-10 11:27] LABS: Glucose,Whole Blood 109 mg/dL (75-99)
[2018-06-10 12:07] VITALS: PULSE 68
[2018-06-10] MEDS: FUROSEMIDE 40 MG TAB PO SCH (12:14)
[2018-06-10] MEDS: VIT A,C & E-LUTEIN-MINERALS 1 EACH TAB PO SCH (12:14)
[2018-06-10] MEDS: FAMOTIDINE 20 MG TAB PO SCH (12:14)
[2018-06-10] MEDS: LEVOTHYROXINE 25 MCG TAB PO SCH (12:14)
[2018-06-10] MEDS: MULTIVITAMINS, THERA 1 EACH TAB PO SCH (12:14)
[2018-06-10] MEDS: ASPIRIN 81 MG PO SCH (12:14)
[2018-06-10] MEDS: HEPARIN SODIUM,PORCINE 5,000 UNIT/ML 1 ML VIAL SQ SCH (12:15)
--- NOTE | 2018-06-10 13:23 | P.DS ---
Providers Date of admission: 06/07/18 19:08 Expected date of discharge: 06/10/18 Attending physician: Kiki Schmidt Consults: 06/06/18 20:59 Consult Physician Routine Consulting Provider: Andry Nobles Consult Reason/Comments: known Do you want consulting provider notified?: Yes 06/07/18 18:22 Consult Physician Routine Consulting Provider: Ash Aleman Consult Reason/Comments: pleurex cathetar talc procedure 06/08, and removal possibly 06/10 Do you want consulting provider notified?: Yes Primary care physician: [facility] Course: Discharge diagnosis 1. COPD exacerbation. Chest x-ray completed showing probable COPD. No active cardiopulmonary disease. No change. Patient started on Solu-Medrol every 6 hours and updraft breathing treatments. Dr. Sandhu per pulmonary services consulted. Dr. Aleman her cardiothoracic surgery consulted due to Pleurx catheter plan to drain Pleurx catheter one more time today. Plan to remove Pleurx catheter tomorrow per cardiovascular surgical team. Eliquis currently on hold. Patient has been cleared for discharge from pulmonary standpoint. Patient be discharged home on prednisone taper per pulmonary services. Patient to follow-up outpatient. 2. Frequent pleural effusions with Pleurx catheter placement. Fluid cytology was negative on 2 different occasions per pulmonary. Patient had Pleurx catheter placed in March per Dr. Aleman. Patient gets Pleurx catheter drained every Thursday and Thursday. Patient states he 50 mL of drainage on Thursday. Patient's home Lasix [address] Aleman her cardiothoracic surgery consulted due to Pleurx catheter plan to drain Pleurx catheter one more time today. Plan to remove Pleurx catheter tomorrow per cardiovascular surgical team. Eliquis currently on hold. Per pulmonary services hardly any output out of the left Pleurx catheter. Pleurx catheter has been removed per cardiovascular surgery today. Patient has been cleared for discharge from cardiothoracic standpoint. 3. History of atrial fibrillation. Patient currently on eliquis. Eliquis currently on hold to removal of pleurax catheter tomorrow. Eliquis okay to resume per cardiovascular surgery 4. History of permanent pacemaker placement. Placed June 2017. 5. History of essential hypertension. Continue Norvasc 6. Hypothyroidism. Continue Synthroid 7. History of Macular degeneration 8. History of hyperlipidemia. Continue Lipitor 9. Hyperglycemia due to steroids. Sliding scale insulin has been added. Patient will be DC'd home on by mouth steroid taper. Blood sugars have improved. 10. Leukocytosis. Blood culture has been ordered. Patient is on steroids. WBC 11.2. Blood culture showing no growth. WBC 9 point Hospital course This is a 73-year-old male patient who presented to the emergency room with complaints of increased shortness of breath. Patient states that shortness of breath had been progressively increasing throughout the weekend. Patient has a known past medical history of COPD and pleural effusion. Patient does have a Pleurx catheter to left side placed in March per Dr. Aleman. Patient states he gets Pleurx drained every Thursday and Thursday. Patient did state he got 50 mL out on Thursday. Patient does follow with Dr. Sandhu per pulmonary services. Additional medical history includes atrial fibrillation in which she takes eliquis, Permanent pacemaker, macular degeneration, hyperlipidemia and hypertension. Chest x-ray completed emergency room showing probable COPD. No active cardiopulmonary disease. No change. Dr. Sandhu consulted for pulmonary services. EKG completed showing undetermined rhythm nonspecific intraventricular block. Patient does have a pacemaker. Patient states he does have advanced her active but does not have it currently present with him. Patient is alert and oriented 3 and states that he would like CPR but no mechanical ventilation. Patient started on Solu-Medrol 60 mg every 6 hours and breathing treatments. At this time patient denies chest pain. Does state shortness of breath with increased activity. Patient denies nausea vomiting or diarrhea. Patient denies any urinary burning or frequency On 06/08/2018 patient states breathing is much improved. Patient is alert and oriented 3. Patient remains liters nasal cannula. Patient denies chest pain. Patient is still having shortness of breath with activity. Patient denies nausea vomiting or diarrhea. Patient denies any urinary burning or frequency On 06/09/2018 patient is currently alert and oriented 3. Patient is currently resting comfortably in bed. Patient states breathing is much improved. Plan for pleurax catheter removal tomorrow per surgical. Eliquis currently on hold. Patient denies chest pain. Patient denies nausea vomiting or diarrhea. Patient denies any urinary burning or frequency On 06/10/2018 patient is currently alert and oriented 3. Patient is eager to go home. Patient had Pleurx catheter removed this a.m. per cardiovascular surgery. Patient has been cleared for discharge from cardiovascular surgery and pulmonary services. Patient will be DC'd home on prednisone taper. Patient to follow-up closely with consulting providers and primary care provider. At this time patient states much improvement with breathing. Patient denies nausea vomiting or diarrhea. Patient denies chest pain. Patient denies any urinary burning or frequency. I performed an examination of the patient and discussed their management with the Nurse Practitioner. I have reviewed the Nurse Practitioner's notes and agree with the documented findings and plan of care Patient Condition at Discharge: Stable Plan - Discharge Summary Discharge Rx Participant: No New Discharge Prescriptions: New predniSONE 10 mg PO DIRECTED #30 tab Continue Atorvastatin [Lipitor] 10 mg PO Q48H Fish Oil/Dha/Epa [Fish Oil 1,200 mg Fish Oil] 1 cap PO DAILY Multivitamin [Men's Multi-Vitamin] 1 tab PO DAILY Vits A,C,E/Lutein/Minerals [Ocuvite with Lutein Tablet] 1 tab PO DAILY Albuterol Inhaler [Ventolin Hfa Inhaler] 1 - 2 puff INHALATION RT-Q6H PRN PRN Reason: Shortness Of Breath Budesonide/Formoterol Fumarate [Symbicort 160-4.5 Mcg Inhaler] 2 puff INHALATION RT-BID Furosemide [Lasix] 40 mg PO DAILY tab Levothyroxine Sodium [Synthroid] 25 mcg PO DAILY@0630 tab Apixaban [Eliquis] 5 mg PO BID amLODIPine [Norvasc] 5 mg PO HS Aspirin [Adult Low Dose Aspirin EC] 81 mg PO DAILY [place] 500 mg PO TID Discharge Medication List Atorvastatin [Lipitor] 10 mg PO Q48H 01/08/16 [History] Fish Oil/Dha/Epa [Fish Oil 1,200 mg Fish Oil] 1 cap PO DAILY 01/08/16 [History] Multivitamin [Men's Multi-Vitamin] 1 tab PO DAILY 01/08/16 [History] Vits A,C,E/Lutein/Minerals [Ocuvite with Lutein Tablet] 1 tab PO DAILY 01/08/16 [History] Albuterol Inhaler [Ventolin Hfa Inhaler] 1 - 2 puff INHALATION RT-Q6H PRN [History] Budesonide/Formoterol Fumarate [Symbicort 160-4.5 Mcg Inhaler] 2 puff INHALATION RT-BID 06/23/17 [History] Furosemide [Lasix] 40 mg PO DAILY tab 06/27/17 [Rx] Levothyroxine Sodium [Synthroid] 25 mcg PO DAILY@0630 tab 06/27/17 [Rx] Apixaban [Eliquis] 5 mg PO BID 02/17/18 [History] amLODIPine [Norvasc] 5 mg PO HS 02/17/18 [History] Aspirin [Adult Low Dose Aspirin EC] 81 mg PO DAILY 03/22/18 [History] [place] 500 mg PO TID 06/07/18 [History] predniSONE 10 mg PO DIRECTED #30 tab 06/10/18 [Rx] Follow up Appointment(s)/Referral(s): [facility], [NON-STAFF] - 1-2 Days Kiki Schmidt MD [Primary Care Provider] - 1-2 days Activity/Diet/Wound Care/Special Instructions: Diet heart healthy. Activity as tolerated Discharge Disposition: HOME SELF-CARE
--- NOTE | 2018-06-10 13:45 | P.PN ---
Subjective Progress Note Date: 06/10/18 Principal diagnosis: Acute exacerbation of chronic obstructive pulmonary disease, recurrent left pleural effusion, with Pleurx catheter This is a 73-year-old white male patient of Dr. Schmidt, with an underlying history of COPD, history of left pleural effusions with previous history of thoracentesis, and placement of a Pleurx catheter. He had recurrent pleural effusions was not determined, but was thought to be postinflammatory in nature secondary to permanent pacemaker implantation in June. Cytology on 2 different occasions has been negative. CT scan of the chest did not show evidence of malignancy. The pleural fluid analysis showed exudative pleural fluid. Patient underwent Pleurx catheter insertion, and the amount of output from the catheter has been decreasing. He was feeling less short of breath, and was not requiring oxygen. He was recently seen in the office by Dr. Nobles, he was doing well, he was placed on some steroids regarding the ongoing effusion production. Patient was started on the cold to seen 0.6 mg by mouth. Patient was draining on average of 50-75 ML from the pleural catheter on the daily basis. Patient received of influenza vaccine in the office, subsequently he started experiencing increased coughing, wheezing, shortness of breath. Chest x-ray showed no active cardiopulmonary process. EKG showed paced rhythm. Lab work showed WBC of 11.2, hemoglobin of 13.5, d-dimer 0.69, electrocerebral profile were all within normal limits, LFTs were normal, no fever or chills, patient is on 2 L per nasal cannula, his pulse ox is 95%. Patient was started on nebulized bronchodilators, IV steroids and today we're seeing this patient in regards to acute COPD exacerbation. Other medical history includes atrial fibrillation, on Eliquis, permanent pacemaker insertion , macular degeneration, hypertension, hyperlipidemia. On 06/08/2018 patient seen in follow-up on medical surgical floor. He is seen ambulating in the room, in no acute distress, breathing easier. Lung sounds are positive for scattered rhonchi over left lower lobe, significant wheezing on today's exam. No cough. No fever, no chills, room air pulse ox is 96%, patient is afebrile. Blood cultures are negative, CT surgery has drained left- sided Pleurx catheter, with hardly any output. The patient is seen again today 06/09/2018 in follow-up on the regular medical floor. He is awake and alert in no acute distress. He denies any worsening shortness of breath, cough or congestion. He continues to maintain good O2 saturations in the 90s on room air. There is been minimal output of the Pleurx catheter and the plan is for removal by CT services tomorrow. The patient is seen again today 06/10/2018 in follow-up on the regular medical floor. He remains awake and alert in no acute distress. He is quite anxious to go home. He still has a loose nonproductive cough. Maintaining good O2 saturations in the 90s on room air. Pleurx catheter has been removed from the left chest Objective - Vital Signs Vital signs: Vital Signs Temp 98.2 F 06/10/18 07:56 Pulse 68 06/10/18 12:15 Resp 18 06/10/18 08:30 BP 136/84 06/10/18 08:30 Pulse Ox 97 06/10/18 12:23 Intake & Output 06/09/18 06/10/18 06/10/18 18:59 06:59 18:59 Intake Total 600 340 525 Output Total 1 Balance 600 340 524 Weight 114 kg Intake: IV 450 Oral 600 340 75 Output: Estimated Blood Loss 1 Other: Voiding Method Urinal Toilet Toilet Urinal Urinal # Voids 1 1 - Exam GENERAL EXAM: Alert, active, comfortable in no apparent distress. HEAD: Normocephalic/atraumatic. EYES: Normal reaction of pupils, equal size. Conjunctiva pink, sclera white. NOSE: Clear with pink turbinates. THROAT: No erythema or exudates. NECK: No masses, no JVD, no thyroid enlargement, no adenopathy. CHEST: No chest wall deformity. Symmetrical expansion. Pleurx catheter on the left side of the chest has been removed. LUNGS: Equal air entry with limited rhonchi over left lower lobe, no wheezes, no dullness. CVS: Regular rate and rhythm, normal S1 and S2, no gallops, no murmurs, no rubs ABDOMEN: Soft, nontender. No hepatosplenomegaly, normal bowel sounds, no guarding or rigidity. EXTREMITIES: No clubbing, no edema, no cyanosis, 2+ pulses and upper and lower extremities. MUSCULOSKELETAL: Muscle strength and tone normal. SPINE: No scoliosis or deformity SKIN: No rashes CENTRAL NERVOUS SYSTEM: Alert and oriented -3. No focal deficits, tone is normal in all 4 extremities. PSYCHIATRIC: Alert and oriented -3. Appropriate affect. Intact judgment and insight. - Labs CBC & Chem 7: 06/10/18 09:06 06/10/18 09:06 Labs: Abnormal Lab Results - Last 24 Hours (Table) 06/09/18 06/09/18 06/10/18 Range/Units 17:21 21:00 06:47 MCHC (31.0-37.0) g/dL Neutrophils # (1.3-7.7) k/uL Lymphocytes # (1.0-4.8) k/uL INR 1.2 H (<1.2) BUN (9-20) mg/dL Glucose (74-99) mg/dL POC Glucose (mg/dL) 134 H 144 H (75-99) mg/dL Total Protein (6.3-8.2) g/dL Albumin (3.5-5.0) g/dL 06/10/18 06/10/18 06/10/18 Range/Units 09:06 09:06 11:26 MCHC 30.5 L (31.0-37.0) g/dL Neutrophils # 8.4 H (1.3-7.7) k/uL Lymphocytes # 0.6 L (1.0-4.8) k/uL INR (<1.2) BUN 24 H (9-20) mg/dL Glucose 108 H (74-99) mg/dL POC Glucose (mg/dL) 109 H (75-99) mg/dL Total Protein 6.0 L (6.3-8.2) g/dL Albumin 3.4 L (3.5-5.0) g/dL Microbiology - Last 24 Hours (Table) 06/07/18 05:34 Blood Culture - Preliminary Blood No Growth after 72 hours Assessment and Plan Assessment: Assessment: #1. Acute exacerbation of chronic obstructive pulmonary disease. Chest x-ray was negative for any acute cardiopulmonary findings #2. Recurrent left pleural effusion, fluid cytology was negative for malignancy on 2 different occasions. Status post left-sided Pleurx catheter placement #3. History of COPD #4. Atrial fibrillation, with history of complete AV block, status post permanent pacemaker placement #5. Hypertension #6. Hypothyroidism #7. Hyperlipidemia #8. Macular degeneration Plan: The patient was seen and evaluated by Dr. Nobles. Pleurx catheter has been removed. He is stable for discharge from the pulmonary standpoint. Continue prednisone taper. He should follow-up in our office in 1-2 weeks' time. We'll repeat a chest x-ray then. He is however encouraged to call sooner with any recurrence of symptoms or other questions or concerns. I, the cosigning physician, performed a history & physical examination of the patient. Lungs sounds with faint end expiratory wheeze. Maintaining good O2 saturations in the 90s on room air. I discussed the assessment and plan of care with my nurse practitioner, Yi Don. I attest to the above note as dictated by her.
== END 2018-06-10 15:18 | disposition home health service (06) | DRG 191 ==
LOC: EC 18:40 → 4MS4W 20:59 → OBSVTOIN 06-07 19:08
PROVIDERS: ADMIT Internal Medicine; ATTEND Internal Medicine
PROC: 0BPQ00Z Removal of Drainage Device from Pleura, Open Approach (ICD-10-PCS; principal; 2018-06-10 07:30)
DX: J44.1 Chronic obstructive pulmonary disease with (acute) exacerbation (principal); J90 Pleural effusion, not elsewhere classified; I48.2 Chronic atrial fibrillation; I45.4 Nonspecific intraventricular block; E78.5 Hyperlipidemia, unspecified; I10 Essential (primary) hypertension; E03.9 Hypothyroidism, unspecified; T38.0X5A Adverse effect of glucocorticoids and synthetic analogues, initial encounter; H35.30 Unspecified macular degeneration; D72.829 Elevated white blood cell count, unspecified; R73.9 Hyperglycemia, unspecified; F17.201 Nicotine dependence, unspecified, in remission; Z79.01 Long term (current) use of anticoagulants; Z79.51 Long term (current) use of inhaled steroids; Z79.82 Long term (current) use of aspirin; Z79.890 Hormone replacement therapy; Z79.899 Other long term (current) drug therapy; Z98.42 Cataract extraction status, left eye; Z98.41 Cataract extraction status, right eye; Z96.1 Presence of intraocular lens; Z86.010 Personal history of colon polyps; Z95.0 Presence of cardiac pacemaker; Z83.3 Family history of diabetes mellitus; Z80.3 Family history of malignant neoplasm of breast
CPT/HCPCS: 36415; 71046; 80053; 82550; 82553; 83036; 83605; 83735; 83880; 84484; 85025; 85379; 85610; 85730; 87040; 93005; 94640; 94644; 96374; 99285

== ENCOUNTER → 2019-04-28 | Outpatient (CLI) | payer MEDICARE ==
--- NOTE | 2019-04-28 10:28 | XR ---
EXAMINATION TYPE: XR chest 2V DATE OF EXAM: 04/28/2019 COMPARISON: Prior chest x-ray June 06, 2018. HISTORY: History of atrial fibrillation with intermittent chest pain TECHNIQUE: Frontal and lateral views of the chest are obtained. FINDINGS: Bridging osteophytes in the mid to lower thoracic spine are redemonstrated. There is persi stent cardiomegaly with single lead pacemaker. There is background chronic interval change with multi ple tiny left pleural effusion or pleural thickening. There is minimal lateral left basilar opacity i dentified seen best on frontal view. Right lung remains clear. IMPRESSION: Cardiomegaly and chronic parenchymal changes with stable small to tiny left pleural effu travis or thickening. New masslike peripheral consolidation left infrahilar level. Consider short-term progress chest x-ray study after treatment for infection. If lesion persists further investigation wi th CT exam would be warranted.
== END | disposition home or self-care (01) ==
LOC: RADXRMAIN 09:47
PROVIDERS: ATTEND Internal Medicine Cardiovascular Disease
DX: J98.4 Other disorders of lung (principal); I51.7 Cardiomegaly
CPT/HCPCS: 71046

== ENCOUNTER 2019-06-27 11:26 | Emergency (ER) | payer MEDICARE ==
[2019-06-27 11:37] VITALS: PULSE 60
--- NOTE | 2019-06-27 12:48 | ED ---
General Adult HPI - General Chief complaint: Urogenital Stated complaint: Unable to sleep Time Seen by Provider: 06/27/19 12:01 Source: patient, RN notes reviewed Mode of arrival: ambulatory Limitations: no limitations - History of Present Illness Initial comments: 74 year old male presents emergency Department with multiple complaints. Patient states the last 2 months he's been having worsening issues which includes urinary frequency states that it has been keeping him up all night long states that he does not sleep because his. Patient's been having left-sided abdominal pain, left lower rib pain. Patient states he is given Tylenol with codeine by his PCP and given and antacids. Patient states has not helped. He now feels constipated from this. Patient states that he had night sweats but no explain fever, URI symptoms. Patient states he has seen his PCP several times for this. - Related Data Home Medications Medication Instructions Recorded Confirmed Atorvastatin [Lipitor] 10 mg PO Q48H 01/08/16 06/07/18 Fish Oil/Dha/Epa [Fish Oil 1,200 1 cap PO DAILY 01/08/16 06/07/18 mg Fish Oil] Multivitamin [Men's Multi-Vitamin] 1 tab PO DAILY 01/08/16 06/07/18 Vits A,C,E/Lutein/Minerals 1 tab PO DAILY 01/08/16 06/07/18 [Ocuvite with Lutein Tablet] Albuterol Inhaler [Ventolin Hfa 1 - 2 puff INHALATION RT-Q6H PRN 06/23/17 06/07/18 Inhaler] Budesonide/Formoterol Fumarate 2 puff INHALATION RT-BID 06/23/17 06/07/18 [Symbicort 160-4.5 Mcg Inhaler] Apixaban [Eliquis] 5 mg PO BID 02/17/18 06/07/18 amLODIPine [Norvasc] 5 mg PO HS 02/17/18 06/07/18 Aspirin [Adult Low Dose Aspirin EC] 81 mg PO DAILY 03/22/18 06/07/18 Saw [place] 500 mg PO TID 06/07/18 06/07/18 Previous Rx's Medication Instructions Recorded Furosemide [Lasix] 40 mg PO DAILY tab 06/27/17 Levothyroxine Sodium [Synthroid] 25 mcg PO DAILY@0630 tab 10/21/17 predniSONE 10 mg PO DIRECTED #30 tab 06/10/18 Tamsulosin [Flomax] 0.4 mg PO DAILY #14 cap 06/27/19 Allergies Allergy/AdvReac Type Severity Reaction Status Date / Time No Known Allergies Allergy Verified 06/07/18 06:07 Review of Systems ROS Statement: Those systems with pertinent positive or pertinent negative responses have been documented in the HPI. ROS Other: All systems not noted in ROS Statement are negative. Past Medical History Past Medical History: Atrial Fibrillation, COPD, Eye Disorder, Hyperlipidemia, Hypertension Additional Past Medical History / Comment(s): Macular degeneration, left pleural effusions w/ Pleur-X catheter in LUQ (placed by Dr. Aleman), History of Any Multi-Drug Resistant Organisms: None Reported Past Surgical History: Adenoidectomy, Pacemaker, Tonsillectomy Additional Past Surgical History / Comment(s): Colonoscopy/polypectomy, cataracts - lens implants,. left thoracentesis, [employer], Pleur-X catheter LUQ. Past Anesthesia/Blood Transfusion Reactions: No Reported Reaction Type of Cardiac Device: Permanent Pacemaker Device Placement Date:: 06/2017 Past Psychological History: No Psychological Hx Reported Smoking Status: Former smoker Past Alcohol Use History: Occasional Past Drug Use History: None Reported - Past Family History Mother Family Medical History: Cancer, Diabetes Mellitus Additional Family Medical History / Comment(s): Breast Father Family Medical History: No Reported History General Exam Limitations: no limitations General appearance: alert, in no apparent distress Head exam: Present: atraumatic, normocephalic, normal inspection Eye exam: Present: normal appearance, PERRL, EOMI. Absent: scleral icterus, conjunctival injection, periorbital swelling ENT exam: Present: normal exam, normal oropharynx, mucous membranes moist Neck exam: Present: normal inspection, full ROM. Absent: tenderness, meningismus, lymphadenopathy Respiratory exam: Present: normal lung sounds bilaterally. Absent: respiratory distress, wheezes, rales, rhonchi, stridor Cardiovascular Exam: Present: regular rate, normal rhythm, normal heart sounds. Absent: systolic murmur, diastolic murmur, rubs, gallop, clicks GI/Abdominal exam: Present: soft, tenderness (Left upper), normal bowel sounds. Absent: distended, guarding, rebound, rigid Back exam: Absent: CVA tenderness (R), CVA tenderness (L) Skin exam: Present: warm, dry, intact, normal color. Absent: rash Course Vital Signs 06/27/19 11:34 Temperature 97.9 F Pulse Rate 60 Respiratory 17 Rate Blood Pressure 147/85 O2 Sat by Pulse 96 Oximetry EKG Findings - EKG Comments: EKG Findings:: EKG performed at 12:29 ventricular paced rhythm at rate of 60 QRS 174 QTC is QTC 518/518 - EKG Results: EKG: interpreted by GERMAN Medical Decision Making - Medical Decision Making Patient labs, urinalysis and chest x-ray all of abdominal x-ray. Patient urinalysis unremarkable patient's been having increased frequency urination most likely related to BPH issues. Patient will be started on Flomax. Patient chest x-ray shows worsen or pleural thickening, consistent pleural effusion. He is advised to follow-up with pulmonary Dr. Nobles who he saw in the past with his ongoing issues. Patient has no clinical signs of infection. Patient feels comfortable with discharge with close follow-up. - Lab Data Result diagrams: 06/27/19 12:33 06/27/19 12:33 Lab Results 06/27/19 06/27/19 06/27/19 Range/Units 12:33 12:33 12:33 WBC 7.8 (3.8-10.6) k/uL RBC 5.21 (4.30-5.90) m/uL Hgb 12.8 L (13.0-17.5) gm/dL Hct 40.0 (39.0-53.0) % MCV 76.7 L (80.0-100.0) fL MCH 24.6 L (25.0-35.0) pg MCHC 32.0 (31.0-37.0) g/dL RDW 15.1 (11.5-15.5) % Plt Count 263 (150-450) k/uL Neutrophils % 79 % Lymphocytes % 10 % Monocytes % 7 % Eosinophils % 2 % Basophils % 0 % Neutrophils # 6.1 (1.3-7.7) k/uL Lymphocytes # 0.8 L (1.0-4.8) k/uL Monocytes # 0.6 (0-1.0) k/uL Eosinophils # 0.1 (0-0.7) k/uL Basophils # 0.0 (0-0.2) k/uL Manual Slide Review Performed Poikilocytosis (manual Present Microcytosis Slight Sodium 138 (137-145) mmol/L Potassium 4.5 (3.5-5.1) mmol/L Chloride 102 (98-107) mmol/L Carbon Dioxide 26 (22-30) mmol/L Anion Gap 10 mmol/L BUN 14 (9-20) mg/dL Creatinine 0.74 (0.66-1.25) mg/dL Est GFR (CKD-EPI)AfAm >90 (>60 ml/min/1.73 sqM) Est GFR (CKD-EPI)NonAf 90 (>60 ml/min/1.73 sqM) Glucose 90 (74-99) mg/dL Calcium 9.5 (8.4-10.2) mg/dL Total Bilirubin 0.8 (0.2-1.3) mg/dL AST 23 (17-59) U/L ALT 29 (21-72) U/L Alkaline Phosphatase 129 H (38-126) U/L Troponin I <0.012 (0.000-0.034) ng/mL Total Protein 7.2 (6.3-8.2) g/dL Albumin 3.7 (3.5-5.0) g/dL Lipase 48 (23-300) U/L Urine Color Urine Appearance (Clear) Urine pH (5.0-8.0) Ur Specific [place] (1.001-1.035) Urine Protein (Negative) Urine Glucose (UA) (Negative) Urine Ketones (Negative) Urine Blood (Negative) Urine Nitrite (Negative) Urine Bilirubin (Negative) Urine Urobilinogen (<2.0) mg/dL Ur Leukocyte Esterase (Negative) Urine RBC (0-5) /hpf Urine WBC (0-5) /hpf Urine Bacteria (None) /hpf Urine Mucus (None) /hpf 06/27/19 Range/Units 12:33 WBC (3.8-10.6) k/uL RBC (4.30-5.90) m/uL Hgb (13.0-17.5) gm/dL Hct (39.0-53.0) % MCV (80.0-100.0) fL MCH (25.0-35.0) pg MCHC (31.0-37.0) g/dL RDW (11.5-15.5) % Plt Count (150-450) k/uL Neutrophils % % Lymphocytes % % Monocytes % % Eosinophils % % Basophils % % Neutrophils # (1.3-7.7) k/uL Lymphocytes # (1.0-4.8) k/uL Monocytes # (0-1.0) k/uL Eosinophils # (0-0.7) k/uL Basophils # (0-0.2) k/uL Manual Slide Review Poikilocytosis (manual Microcytosis Sodium (137-145) mmol/L Potassium (3.5-5.1) mmol/L Chloride (98-107) mmol/L Carbon Dioxide (22-30) mmol/L Anion Gap mmol/L BUN (9-20) mg/dL Creatinine (0.66-1.25) mg/dL Est GFR (CKD-EPI)AfAm (>60 ml/min/1.73 sqM) Est GFR (CKD-EPI)NonAf (>60 ml/min/1.73 sqM) Glucose (74-99) mg/dL Calcium (8.4-10.2) mg/dL Total Bilirubin (0.2-1.3) mg/dL AST (17-59) U/L ALT (21-72) U/L Alkaline Phosphatase (38-126) U/L Troponin I (0.000-0.034) ng/mL Total Protein (6.3-8.2) g/dL Albumin (3.5-5.0) g/dL Lipase (23-300) U/L Urine Color Yellow Urine Appearance Clear (Clear) Urine pH 6.0 (5.0-8.0) Ur Specific [place] 1.011 (1.001-1.035) Urine Protein Negative (Negative) Urine Glucose (UA) Negative (Negative) Urine Ketones Negative (Negative) Urine Blood Trace H (Negative) Urine Nitrite Negative (Negative) Urine Bilirubin Negative (Negative) Urine Urobilinogen <2.0 (<2.0) mg/dL Ur Leukocyte Esterase Negative (Negative) Urine RBC 2 (0-5) /hpf Urine WBC <1 (0-5) /hpf Urine Bacteria Rare H (None) /hpf Urine Mucus Rare H (None) /hpf Disposition Clinical Impression: Urinary frequency, Pleural thickening, Left-sided chest wall pain Disposition: HOME SELF-CARE Condition: Stable Instructions (If sedation given, give patient instructions): Enlarged Prostate (BPH) (ED) Additional Instructions: Please return to the Emergency Department if symptoms worsen or any other concerns. Prescriptions: Tamsulosin [Flomax] 0.4 mg PO DAILY #14 cap Is patient prescribed a controlled substance at d/c from ED?: No Referrals: Serafin Juarez MD [Primary Care Provider] - 1-2 days Reuben Edmond MD [STAFF PHYSICIAN] - 1-2 days Time of Disposition: 14:13
[2019-06-27 12:56] LABS: Appearance,Urine Clear (Clear); Bacteria,Urine Rare /hpf; Bilirubin,Urine Negative (Negative); Blood,Urine Trace (Negative); Color,Urine Yellow; Glucose,Urine (UA) Negative (Negative); Ketones,Urine Negative (Negative); Leukocyte Esterase,Urine Negative (Negative); Mucus,Urine Rare /hpf; Nitrite,Urine Negative (Negative); Protein,Urine Negative (Negative); RBC,Urine 2 /hpf (0-5); Specific Gravity,Urine 1.011 (1.001-1.035); Urobilinogen,Urine <2.0 mg/dL (<2.0)
[2019-06-27 13:04] LABS: ALT 29 U/L (21-72); AST 23 U/L (17-59); African American GFR (CKD) >90 (>60 ml/min/1.73 sqM); Albumin 3.7 g/dL (3.5-5.0); Alkaline Phosphatase 129 U/L (38-126); Anion Gap 10 mmol/L; Blood Urea Nitrogen 14 mg/dL (9-20); Calcium 9.5 mg/dL (8.4-10.2); Carbon Dioxide 26 mmol/L (22-30); Chloride 102 mmol/L (98-107); Glucose 90 mg/dL (74-99); Potassium 4.5 mmol/L (3.5-5.1); Sodium 138 mmol/L (137-145); Total Bilirubin 0.8 mg/dL (0.2-1.3); Total Protein 7.2 g/dL (6.3-8.2)
[2019-06-27 13:09] LABS: Basophils % (A) 0 %; Eosinophils # (A) 0.1 k/uL (0-0.7); Eosinophils % (A) 2 %; HGB 12.8 gm/dL (13.0-17.5); Lymphocytes # (A) 0.8 k/uL (1.0-4.8); Lymphocytes % (A) 10 %; MCH 24.6 pg (25.0-35.0); MCV 76.7 fL (80.0-100.0); Mean Platelet Volume 6.1; Microcytosis Slight; Monocytes # (A) 0.6 k/uL (0-1.0); Monocytes % (A) 7 %; Neutrophils # (A) 6.1 k/uL (1.3-7.7); Neutrophils % (A) 79 %; Platelet Count 263 k/uL (150-450); RBC 5.21 m/uL (4.30-5.90); RDW 15.1 % (11.5-15.5); WBC 7.8 k/uL (3.8-10.6)
--- NOTE | 2019-06-27 13:29 | XR ---
EXAMINATION TYPE: XR chest 2V DATE OF EXAM: 06/27/2019 COMPARISON: 04/28/2019 INDICATION: Pleural effusion TECHNIQUE: Frontal and lateral views of the chest are obtained. FINDINGS: The heart size is moderately prominent. The pulmonary vasculature is normal. There is pleural nodularity noted along the lateral left lung base. This may be more prominent than c omparison. Small left pleural effusion remains present. Right costophrenic angle is incompletely eval uated. Pacemaker overlies left chest.. IMPRESSION: 1. Left pleural effusion. Left pleural thickening is present to a greater degree than prior
--- NOTE | 2019-06-27 13:30 | XR ---
EXAMINATION TYPE: XR KUB DATE OF EXAM: 06/27/2019 COMPARISON: None HISTORY: Left-sided pain, frequent urination TECHNIQUE: Abdomen is examined in the upright view. FINDINGS: Normal bowel gas is present. Some nonspecific small bowel gas containing air is present. No mass effect is evident. Left basilar infiltrate is present. Small left pleural effusion may be prese nt. Psoas margins are normal. Again a midline is not evident. IMPRESSION: 1. No acute abdomen abnormality. 2. Left lower lobe infiltrate and/or small left pleural effusion
[2019-06-27 13:50] LABS: Poikilocytosis (M) Present
[2019-06-27 14:27] VITALS: BP 152/85; RESP 18; TEMP 98.7
== END 2019-06-27 14:27 | disposition home or self-care (01) ==
LOC: EC 11:26
DX: J92.9 Pleural plaque without asbestos (principal); R35.0 Frequency of micturition; R07.89 Other chest pain; R10.9 Unspecified abdominal pain; R07.81 Pleurodynia; R61 Generalized hyperhidrosis; I48.91 Unspecified atrial fibrillation; J44.9 Chronic obstructive pulmonary disease, unspecified; E78.5 Hyperlipidemia, unspecified; I10 Essential (primary) hypertension; Z87.891 Personal history of nicotine dependence; Z79.01 Long term (current) use of anticoagulants; Z79.51 Long term (current) use of inhaled steroids; Z79.82 Long term (current) use of aspirin; Z79.899 Other long term (current) drug therapy; Z95.0 Presence of cardiac pacemaker; Z87.09 Personal history of other diseases of the respiratory system; Z96.89 Presence of other specified functional implants
CPT/HCPCS: 36415; 71046; 74018; 80053; 81001; 83690; 84484; 85025; 93005; 99284

== ENCOUNTER → 2019-07-12 | Outpatient (CLI) | payer MEDICARE ==
[2019-07-12 10:43] LABS: African American GFR (CKD) >90 (>60 ml/min/1.73 sqM); Blood Urea Nitrogen 14 mg/dL (9-20)
--- NOTE | 2019-07-12 11:35 | CT ---
EXAMINATION TYPE: CT chest w con DATE OF EXAM: 07/12/2019 COMPARISON: Chest x-ray dated 06/27/[address] dated 03/12/2018 HISTORY: Chest pain and abnormal chest x-ray CT DLP: 813 mGycm. Automated Exposure Control for Dose Reduction was Utilized. TECHNIQUE: CT scan of the thorax is performed following with IV Contrast, patient injected with 100 mL of Isovue 300. FINDINGS: LUNGS: There is new abnormal nodular thickening of the left hemithorax pleural surface seen diffusely . Masslike areas are most pronounced on series 3 image 33 along the mediastinal border appearing to h ave mediastinal invasion. The most anterior measures 6.4 x 4.1 cm and invading into the mediastinum b elow the left main pulmonary artery there is a second mass measuring 5.0 x 5.0 cm. Other nodular mass like densities are seen along the pleural surface. Another one of the largest abutting the pericardia l surface is seen in the anterior left midlung measuring at least 7.6 x 4.1 cm on image 43. No calcif ications are seen. Density of these masses are slightly greater than fluid. There is left hemithorax volume loss. Visualized portions of the left lung demonstrates few blebs and scattered areas of atele ctasis. In the right lower lobe there is a 7 x 8 mm pulmonary nodule on image 42 is solid in nature area mild emphysematous changes of the lungs overall. Spiculated density in the right lower lobe is present on image 36 and 37 adjacent to other pulmonary nodules that are 5 mm and smaller. 2 mm right upper lobe pulmonary nodule seen laterally on image 18. Minimal biapical pleural parenchymal scarring. Trace right pleural effusion. MEDIASTINUM: There are no greater than 1 cm hilar or mediastinal lymph nodes. No pericardial effusi on is seen. Heart is enlarged. Severe coronary artery calcifications are seen. Again mediastinal inv asion is noted. Prevascular density appears to be related to mediastinal invasion from the pleural-ba sed masses rather than marked adenopathy. Conglomeration of right hilar lymph nodes measures 1.4 x 1. 8 cm. Infrahilar lymph node measures 1.4 cm in short axis. Clustered enlarged left perihilar lymph no pj are also seen measuring at least 1.2 cm in short axis. Left-sided cardiac device is noted. Small pericardial effusion is thickness of 1.1 cm posteriorly. OTHER: 1.0 cm exophytic right cortical renal cyst seen. Small hiatal hernia present. Suboptimal enhan cement of the upper abdomen. Moderate degenerative changes of the thoracic spine with small bridging anterior osteophytes, possible diffuse idiopathic skeletal hyperostosis. IMPRESSION: 1. New nodular masslike pleural thickening encapsulating the entire left left lung with mediastinal i nvasion. Although no calcifications are seen consideration is for mesothelioma, pleural-based metasta sis, or less likely pleural-based tumor. Percutaneous sampling could be considered. 2. Mediastinal adenopathy is present although left-sided adenopathy blends with the pleural-based mas ses invading the mediastinum. 3. Right lower lobe pulmonary nodules also concerning for metastasis measuring up to 8 mm.
== END | disposition home or self-care (01) ==
LOC: RADCTMAIN 10:09
PROVIDERS: ATTEND Internal Medicine Critical Care Medicine
DX: J92.9 Pleural plaque without asbestos (principal); R59.0 Localized enlarged lymph nodes; R91.8 Other nonspecific abnormal finding of lung field; J98.59 Other diseases of mediastinum, not elsewhere classified
CPT/HCPCS: 82565; 84520; 71260; 36415; Q9967

== ENCOUNTER → 2019-07-26 | Day surgery (SDC) | payer MEDICARE ==
[~2019-07-26] MED LIST changes: +ALPRAZolam 0.25 MG TAB PO STA; -DEXAMETHASONE SOD PHOSPHATE 10 MG/ML 1 ML VIAL IV ONE; -HYDROmorphone 0.5 MG/0.5 ML SYRINGE IVP PRN; -LACTATED RINGERS 1,000 ML IV SCH; -ONDANSETRON 4 MG/2 ML VIAL IVP ONE; -Pre Op ABX Message 1 EACH MISC MISCELLANE ONE
[2019-07-26 09:26] LABS: Mean Platelet Volume 6.7; Platelet Count 244 k/uL (150-450)
[2019-07-26 09:38] LABS: INR 1.1 (<1.2); Prothrombin Time 11.5 sec (9.0-12.0)
[2019-07-26 10:01] VITALS: TEMP 98.1
--- NOTE | 2019-07-26 11:29 | XR ---
EXAMINATION TYPE: XR chest 1V portable DATE OF EXAM: 07/26/2019 HISTORY: Status post lung biopsy. COMPARISON: None. TECHNIQUE: Single view of the chest is submitted. FINDINGS: No evidence for pneumothorax. Demonstrated are scattered senescent parenchymal change. Pleural parenchymal opacity throughout one is unchanged. The heart is stable. Hilar and mediastinal structures are within normal limits. Degenerative changes are seen of the dorsal spine. IMPRESSION: 1. Evidence for pneumothorax at this time.
--- NOTE | 2019-07-26 12:49 | CT ---
EXAMINATION TYPE: CT biopsy lung LT DATE OF EXAM: 07/26/2019 HISTORY: Left Pleural mass COMPARISON: CT 07/12/2019 Maximal barrier technique was utilized. The skin overlying a suitable path to the lesion in the lowe r left chest was localized using CT and the overlying skin was prepped and draped. Lidocaine used fo r local anesthesia. A skin sheila made with a scalpel. Using CT guidance, access was gained to the le travis with a 18-gauge needle. Core specimen submitted to pathology in formalin. Single pass performed. Following the procedure no immediate complications. The patient is discharged in stable condition. Hemostasis achieved. Postprocedure chest x-ray pending. IMPRESSION: SUCCESSFUL CT GUIDED LEFT PLEURAL CORE BIOPSY. PATHOLOGY PENDING. THIS PROCEDURE WAS PERFORMED BY Leonila BRUNSON.
[2019-07-26 12:50] VITALS: PULSE 60
[2019-07-26 12:52] VITALS: BP 169/88; RESP 16
--- NOTE | 2019-07-26 13:37 | XR ---
EXAMINATION TYPE: XR chest 1V DATE OF EXAM: 07/26/2019 HISTORY: 2 hours post lung biopsy COMPARISON: None. TECHNIQUE: Single view of the chest is submitted. FINDINGS: Demonstrated are scattered senescent parenchymal change. No evidence for pneumothorax at this time. Pleural parenchymal opacity throughout the left lung is unchanged. Continued cardiomegaly. Hilar and mediastinal structures are within normal limits. Degenerative changes are seen of the dorsal spine. IMPRESSION: 1. Evidence for pneumothorax 2 hours post procedure.
== END ==
LOC: RADPROMAIN 08:45
PROVIDERS: ATTEND Internal Medicine Critical Care Medicine
DX: C45.0 Mesothelioma of pleura (principal)
CPT/HCPCS: 36415; 71045; 77012; 85049; 85610; 88305; 88341; 88342

== ENCOUNTER 2019-08-02 13:17 | Inpatient (IN) | payer MEDICARE ==
[2019-08-02] MEDS ORDERED: methylPREDNISolone SOD SUCCI 125 MG/2 ML VIAL IV STA (13:43)
[2019-08-02] MEDS ORDERED: ALBUTEROL NEBULIZED 2.5 MG/3 ML INHALATION STA (13:43)
[2019-08-02] MEDS ORDERED: IPRATROPIUM 0.5 MG/2.5 ML NEBU INHALATION STA (13:43)
--- NOTE | 2019-08-02 13:45 | ED ---
General Adult HPI - General Chief complaint: Shortness of Breath Stated complaint: ADAM, swollen legs Time Seen by Provider: 08/02/19 13:32 Source: patient, family, RN notes reviewed, old records reviewed Mode of arrival: wheelchair Limitations: no limitations - History of Present Illness Initial comments: 74-year-old male history of COPD and recent diagnosis of mesothelioma presenting progressive dyspnea and lower extremity edema. Patient is a known history of COPD. He has been taking albuterol at home with minimal relief. He has noticed orthopnea and lower extremity edema over the past one week. According to his family's had progressive decline in both energy levels and worsening shortness of breath over the past several months. He had a lung biopsy approximately one week ago. He had previous Pleurx catheter which has been removed secondary to pleural effusion on the left. Denies fever but has had a productive cough with clear sputum. - Related Data Home Medications Medication Instructions Recorded Confirmed Atorvastatin [Lipitor] 10 mg PO PC-SUPPER 01/08/16 08/02/19 Multivitamin [Men's Multi-Vitamin] 1 tab PO DAILY 01/08/16 08/02/19 Budesonide/Formoterol Fumarate 1 puff INHALATION RT-DAILY 06/23/17 08/02/19 [Symbicort 160-4.5 Mcg Inhaler] Apixaban [Eliquis] 5 mg PO BID 02/17/18 08/02/19 amLODIPine [Norvasc] 5 mg PO DAILY 02/17/18 08/02/19 Aspirin [Adult Low Dose Aspirin EC] 81 mg PO DAILY 03/22/18 08/02/19 ALPRAZolam [Xanax] 0.25 - 0.5 mg PO TID PRN 08/02/19 08/02/19 Albuterol Nebulized [Ventolin 2.5 mg INHALATION RT-QID 08/02/19 08/02/19 Nebulized] Albuterol Sulfate [Ventolin HFA] 1 - 2 puff INHALATION RT-Q6H PRN 08/02/19 08/02/19 Ethan-3 Fatty Acids/Fish Oil [Fish 1,000 mg PO DAILY 08/02/19 08/02/19 Oil 1,000 mg Softgel] Saw [place] 900mg 900 mg PO DAILY 08/02/19 08/02/19 Tamsulosin [Flomax] 0.4 mg PO DAILY 08/02/19 08/02/19 Vit C/E/Zn/Coppr/Lutein/Zeaxan 2 cap PO DAILY 08/02/19 08/02/19 [Preservision Areds 2 Softgel] Previous Rx's Medication Instructions Recorded Furosemide [Lasix] 40 mg PO DAILY tab 06/27/17 Levothyroxine Sodium [Synthroid] 25 mcg PO DAILY@0630 tab 06/27/17 Allergies Allergy/AdvReac Type Severity Reaction Status Date / Time No Known Allergies Allergy Verified 08/02/19 15:06 Review of Systems ROS Statement: Those systems with pertinent positive or pertinent negative responses have been documented in the HPI. ROS Other: All systems not noted in ROS Statement are negative. Past Medical History Past Medical History: Atrial Fibrillation, COPD, Eye Disorder, Hyperlipidemia, Hypertension Additional Past Medical History / Comment(s): Macular degeneration, left pleural effusions w/ Pleur-X catheter in LUQ (placed by Dr. Aleman) and removed, they never found out why fluid was accumulating. History of Any Multi-Drug Resistant Organisms: None Reported Past Surgical History: Adenoidectomy, Pacemaker, Tonsillectomy Additional Past Surgical History / Comment(s): Colonoscopy/polypectomy, cataracts - lens implants,. left thoracentesis, [employer], Pleur-X catheter LUQ. Past Anesthesia/Blood Transfusion Reactions: No Reported Reaction Type of Cardiac Device: Permanent Pacemaker Device Placement Date:: 06/2017 Past Psychological History: No Psychological Hx Reported Smoking Status: Former smoker Past Alcohol Use History: Occasional Past Drug Use History: None Reported - Past Family History Mother Family Medical History: Cancer, Diabetes Mellitus Additional Family Medical History / Comment(s): Breast Father Family Medical History: No Reported History General Exam Limitations: no limitations General appearance: alert, in distress Head exam: Present: atraumatic, normocephalic Eye exam: Present: normal appearance, PERRL ENT exam: Present: normal exam Neck exam: Present: normal inspection. Absent: tenderness, meningismus Respiratory exam: Present: respiratory distress, wheezes, rales, accessory muscle use, decreased breath sounds Cardiovascular Exam: Present: regular rate, normal rhythm GI/Abdominal exam: Present: soft. Absent: distended, tenderness, guarding Extremities exam: Present: pedal edema Neurological exam: Present: alert, oriented X3 Psychiatric exam: Present: normal affect, normal mood Skin exam: Present: warm, dry, intact. Absent: cyanosis, diaphoretic Course Vital Signs 08/02/19 08/02/19 08/02/19 13:23 13:53 14:04 Temperature 97.4 F L Pulse Rate 53 L 62 Respiratory 22 22 Rate Blood Pressure 162/86 O2 Sat by Pulse 90 L Oximetry 08/02/19 08/02/19 14:17 14:24 Temperature Pulse Rate 62 Respiratory 20 Rate Blood Pressure 151/77 O2 Sat by Pulse Oximetry EKG Findings - EKG Comments: EKG Findings:: EKG: Paced rhythm, pacer spikes visualized in V2, history of ventricular pacemaker rate of 60, QRS duration 156, QTC 512 Medical Decision Making - Medical Decision Making 74-year-old male history of COPD, mesothelioma, pneumonia, congestive heart failure presenting with orthopnea and lower extremity edema as well as p roductive cough. On exam patient has diffuse end expiratory wheezing as well as rales throughout bilateral lung hunter, diminished lung sounds on the left. X- rays obtained, shows effusion as well as left-sided infiltrates and suspected component of congestive heart failure. He has white blood cell count 10.5 which is predominantly neutrophils. He has CO2 of 33 suggest with chronic CO2 retention. He has a BNP 3580 consistent with fluid overload. His urine antibiotics, nebulized albuterol, steroids, and Lasix. Will be admitted with pulmonology on consult. Case discussed with Dr. Garcia. - Lab Data Result diagrams: 08/02/19 13:47 08/02/19 13:47 Lab Results 08/02/19 08/02/19 08/02/19 Range/Units 13:47 13:47 13:47 WBC 10.5 (3.8-10.6) k/uL RBC 5.41 (4.30-5.90) m/uL Hgb 13.4 (13.0-17.5) gm/dL Hct 42.7 (39.0-53.0) % MCV 79.0 L (80.0-100.0) fL MCH 24.7 L (25.0-35.0) pg MCHC 31.3 (31.0-37.0) g/dL RDW 13.7 (11.5-15.5) % Plt Count 222 (150-450) k/uL Neutrophils % 81 % Lymphocytes % 8 % Monocytes % 7 % Eosinophils % 2 % Basophils % 2 % Neutrophils # 8.5 H (1.3-7.7) k/uL Lymphocytes # 0.8 L (1.0-4.8) k/uL Monocytes # 0.8 (0-1.0) k/uL Eosinophils # 0.2 (0-0.7) k/uL Basophils # 0.2 (0-0.2) k/uL Hypochromasia Marked PT (9.0-12.0) sec INR (<1.2) APTT (22.0-30.0) sec Sodium 135 L (137-145) mmol/L Potassium 5.0 (3.5-5.1) mmol/L Chloride 96 L (98-107) mmol/L Carbon Dioxide 33 H (22-30) mmol/L Anion Gap 6 mmol/L BUN 25 H (9-20) mg/dL Creatinine 0.68 (0.66-1.25) mg/dL Est GFR (CKD-EPI)AfAm >90 (>60 ml/min/1.73 sqM) Est GFR (CKD-EPI)NonAf >90 (>60 ml/min/1.73 sqM) Glucose 108 H (74-99) mg/dL Plasma Lactic Acid [place] 1.2 (0.7-2.0) mmol/L Calcium 9.4 (8.4-10.2) mg/dL Magnesium 2.1 (1.6-2.3) mg/dL Total Bilirubin 0.8 (0.2-1.3) mg/dL AST 29 (17-59) U/L ALT 30 (21-72) U/L Alkaline Phosphatase 151 H (38-126) U/L Troponin I (0.000-0.034) ng/mL NT-Pro-B Natriuret Pep pg/mL Total Protein 6.9 (6.3-8.2) g/dL Albumin 3.5 (3.5-5.0) g/dL 08/02/19 08/02/19 08/02/19 Range/Units 13:47 13:47 13:47 WBC (3.8-10.6) k/uL RBC (4.30-5.90) m/uL Hgb (13.0-17.5) gm/dL Hct (39.0-53.0) % MCV (80.0-100.0) fL MCH (25.0-35.0) pg MCHC (31.0-37.0) g/dL RDW (11.5-15.5) % Plt Count (150-450) k/uL Neutrophils % % Lymphocytes % % Monocytes % % Eosinophils % % Basophils % % Neutrophils # (1.3-7.7) k/uL Lymphocytes # (1.0-4.8) k/uL Monocytes # (0-1.0) k/uL Eosinophils # (0-0.7) k/uL Basophils # (0-0.2) k/uL Hypochromasia PT 11.7 (9.0-12.0) sec INR 1.1 (<1.2) APTT 27.9 (22.0-30.0) sec Sodium (137-145) mmol/L Potassium (3.5-5.1) mmol/L Chloride (98-107) mmol/L Carbon Dioxide (22-30) mmol/L Anion Gap mmol/L BUN (9-20) mg/dL Creatinine (0.66-1.25) mg/dL Est GFR (CKD-EPI)AfAm (>60 ml/min/1.73 sqM) Est GFR (CKD-EPI)NonAf (>60 ml/min/1.73 sqM) Glucose (74-99) mg/dL Plasma Lactic Acid [place] (0.7-2.0) mmol/L Calcium (8.4-10.2) mg/dL Magnesium (1.6-2.3) mg/dL Total Bilirubin (0.2-1.3) mg/dL AST (17-59) U/L ALT (21-72) U/L Alkaline Phosphatase (38-126) U/L Troponin I <0.012 (0.000-0.034) ng/mL NT-Pro-B Natriuret Pep 3580 pg/mL Total Protein (6.3-8.2) g/dL Albumin (3.5-5.0) g/dL Disposition Clinical Impression: Acute exacerbation of chronic obstructive airways disease, CHF (congestive heart failure), Pneumonia Disposition: ADMITTED IP TO THIS HOSP Condition: Stable Is patient prescribed a controlled substance at d/c from ED?: No Referrals: Serafin Juarez MD [Primary Care Provider] - 1-2 days Decision to Admit Reason: Admit from EC Decision Date: 08/02/19 Decision Time: 15:46
[2019-08-02 14:11] LABS: Basophils # (A) 0.2 k/uL (0-0.2); Basophils % (A) 2 %; Eosinophils # (A) 0.2 k/uL (0-0.7); Eosinophils % (A) 2 %; HCT 42.7 % (39.0-53.0); HGB 13.4 gm/dL (13.0-17.5); Hypochromasia Marked; Lymphocytes # (A) 0.8 k/uL (1.0-4.8); Lymphocytes % (A) 8 %; MCH 24.7 pg (25.0-35.0); MCHC 31.3 g/dL (31.0-37.0); Mean Platelet Volume 5.5; Monocytes # (A) 0.8 k/uL (0-1.0); Monocytes % (A) 7 %; Neutrophils # (A) 8.5 k/uL (1.3-7.7); Neutrophils % (A) 81 %; Platelet Count 222 k/uL (150-450); RBC 5.41 m/uL (4.30-5.90); RDW 13.7 % (11.5-15.5); WBC 10.5 k/uL (3.8-10.6)
[2019-08-02 14:20] LABS: ALT 30 U/L (21-72); AST 29 U/L (17-59); African American GFR (CKD) >90 (>60 ml/min/1.73 sqM); Albumin 3.5 g/dL (3.5-5.0); Alkaline Phosphatase 151 U/L (38-126); Anion Gap 6 mmol/L; Blood Urea Nitrogen 25 mg/dL (9-20); Calcium 9.4 mg/dL (8.4-10.2); Carbon Dioxide 33 mmol/L (22-30); Chloride 96 mmol/L (98-107); Glucose 108 mg/dL (74-99); Magnesium 2.1 mg/dL (1.6-2.3); Non-African American GFR(CKD) >90 (>60 ml/min/1.73 sqM); Sodium 135 mmol/L (137-145); Total Bilirubin 0.8 mg/dL (0.2-1.3); Total Protein 6.9 g/dL (6.3-8.2)
[2019-08-02 14:21] LABS: INR 1.1 (<1.2); Partial Thromboplastin Time 27.9 sec (22.0-30.0); Prothrombin Time 11.7 sec (9.0-12.0)
--- NOTE | 2019-08-02 14:40 | XR ---
EXAMINATION TYPE: XR chest 2V DATE OF EXAM: 08/02/2019 COMPARISON: 07/26/2019 HISTORY: Shortness of breath TECHNIQUE: Frontal and lateral views of the chest are obtained. FINDINGS: Scattered senescent parenchymal changes noted. Hyperinflation compatible with COPD. Patchy perihilar and basilar infiltrates with left-sided effusion remain essentially unchanged. Heart size is stable. Mediastinal structures are stable and grossly unremarkable. No evidence for hilar prominence. Degenerative changes dorsal spine. IMPRESSION: 1. Patchy perihilar and basilar infiltrates with left-sided effusion remain essentially unchanged.
[2019-08-02] MEDS ORDERED: AZITHROMYCIN 500 MG in SODIUM CHLORIDE 0.9% 250 ML IVPB STA (14:44)
[2019-08-02] MEDS ORDERED: CEFEPIME 2 GM in SODIUM CHLORIDE 0.9% 100 ML IVPB STA (14:44)
[2019-08-02] MEDS ORDERED: IPRATROPIUM-ALBUTEROL 3 ML NEB INHALATION PRN (15:37)
[2019-08-02] MEDS ORDERED: FUROSEMIDE 10 MG/ML 4 ML VIAL IV STA (15:37)
[2019-08-02] MEDS: methylPREDNISolone SOD SUCCI 125 MG/2 ML VIAL IV SCH ×2 (19:03→23:50)
[2019-08-02] MEDS: IPRATROPIUM-ALBUTEROL 3 ML NEB INHALATION SCH (19:12)
--- NOTE | 2019-08-02 19:38 | P.CNPUL ---
History of Present Illness Consult date: 08/02/19 Reason for consult: dyspnea History of present illness: The patient is very well-known to me. He is 75. I took care of him approximately 1-1/2 years ago for a new onset left-sided pleural effusion. The fluid was drained on multiple occasions. Ultimately needed a Pleurx catheter and the fluid recovered and the catheter was removed. He did great. The fluid cytology on 2 separate occasions came back negative. The CAT scan of the chest back then did not show any evidence of malignancy. Nevertheless, especially over the past 2 months, the patient is experiencing some increased shortness of breath and pain across left lateral chest area. He was seen in the emergency recently and he was found to have a left basilar infiltrate/opacity along the left lateral chest border.. The patient is having night sweats. The patient is having a dry cough. No weight loss. Appetite is good. No documented fever. No nausea. No vomiting. He is feeling constipated. He was having also increase urinary frequency and he was placed on Flomax which improved his urine output. As mentioned, the chest x- ray showed left pleural thickening along the left lateral chest border. There is also a left-sided effusion which is very small at this point in time. He has a pacemaker in place. No syncope. He has served in the [employer] and there is some exposure to asbestos. Based on that, I ordered a computed tomography scan of the chest that shows significant abnormalities including There is new abnormal nodular thickening of the left hemithorax pleural surface seen diffusely. Masslike areas are most pronounced on series 3 image 33 along the mediastinal border appearing to have mediastinal invasion. The most anterior measures 6.4 x 4.1 cm and invading into the mediastinum below the left main pulmonary artery there is a second mass measuring 5.0 x 5.0 cm. Other nodular masslike densities are seen along the pleural surface. Another one of the largest abutting the p ericardial surface is seen in the anterior left midlung measuring at least 7.6 x 4.1 cm on image 43. No calcifications are seen. Density of these masses are slightly greater than fluid. There is left hemithorax volume loss. Visualized portions of the left lung demonstrates few blebs and scattered areas of atelectasis. In the right lower lobe there is a 7 x 8 mm pulmonary nodule. A percutaneous needle biopsy of the lung through interventional radiology and further diagnosis of malignant mesothelioma. His other comorbidities include hypertension, hypothyroidism, atrial fibrillation and he has a pacemaker for complete AV block. Currently is moving around difficulty. He is developing progressive edema in lower extremities bilaterally. He is weak. His performance and functional status is progressively getting worse. He has chest wall pain and this is in the order of 4/10 The patient was supposed to be seen by medical oncology and radiation oncology. Meanwhile, became progressively more short of breath. He developed lower extremity edema. He came into the emergency department this evening having increased shortness of breath and he was immediately given IV Solu-Medrol and IV Lasix and subsequently improved. He is currently on oxygen at 4 L. He is feeling better. His chest x-ray showedPatchy perihilar and bilateral basilar infiltrates and a left-sided pleural effusion that was essentially unchanged and the blood work showed a white cell count 10.5 with hemoglobin of 13.4. The BNP was in the 3500 range and the patient's arrest electrodes are all within normal limits. He is being admitted to the medical floor for now. He is quite tired and fatigued and debilitated. He is also quite anxious. No chest pain. He is on long-term anticoagulation with Eliquis regarding atrial fibrillation. His EKG showing a paced rhythm with a bundle-branch block pattern. Past Medical History Past Medical History: Atrial Fibrillation, COPD, Eye Disorder, Hyperlipidemia, Hypertension Additional Past Medical History / Comment(s): Mesothelioma, Macular degeneration, history of left pleural effusions w/ Pleur-X catheter History of Any Multi-Drug Resistant Organisms: None Reported Past Surgical History: Adenoidectomy, Pacemaker, Tonsillectomy Additional Past Surgical History / Comment(s): Colonoscopy/polypectomy, cataracts - lens implants,. left thoracentesis, [employer], Pleur-X catheter Lt pleural Past Anesthesia/Blood Transfusion Reactions: No Reported Reaction Type of Cardiac Device: Permanent Pacemaker Device Placement Date:: 06/2017 Past Psychological History: No Psychological Hx Reported Smoking Status: Former smoker Past Alcohol Use History: Occasional Past Drug Use History: None Reported - Past Family History Mother Family Medical History: Cancer, Diabetes Mellitus Additional Family Medical History / Comment(s): Breast Father Family Medical History: No Reported History Medications and Allergies Home Medications Medication Instructions Recorded Confirmed Type Atorvastatin [Lipitor] 10 mg PO PC-SUPPER 01/08/16 08/02/19 History Multivitamin [Men's Multi-Vitamin] 1 tab PO DAILY 01/08/16 08/02/19 History Budesonide/Formoterol Fumarate 1 puff INHALATION RT-DAILY 06/23/17 08/02/19 History [Symbicort 160-4.5 Mcg Inhaler] Furosemide [Lasix] 40 mg PO DAILY tab 06/27/17 08/02/19 Rx Levothyroxine Sodium [Synthroid] 25 mcg PO DAILY@0630 tab 06/27/17 08/02/19 Rx Apixaban [Eliquis] 5 mg PO BID 02/17/18 08/02/19 History amLODIPine [Norvasc] 5 mg PO DAILY 02/17/18 08/02/19 History Aspirin [Adult Low Dose Aspirin EC] 81 mg PO DAILY 03/22/18 08/02/19 History ALPRAZolam [Xanax] 0.25 - 0.5 mg PO TID PRN 08/02/19 08/02/19 History Albuterol Nebulized [Ventolin 2.5 mg INHALATION RT-QID 08/02/19 08/02/19 History Nebulized] Albuterol Sulfate [Ventolin HFA] 1 - 2 puff INHALATION RT-Q6H PRN 08/02/19 08/02/19 History [place]-3 Fatty Acids/Fish Oil [Fish 1,000 mg PO DAILY 08/02/19 08/02/19 History Oil 1,000 mg Softgel] Saw [place] 900mg 900 mg PO DAILY 08/02/19 08/02/19 History Tamsulosin [Flomax] 0.4 mg PO DAILY 08/02/19 08/02/19 History Vit C/E/Zn/Coppr/Lutein/Zeaxan 2 cap PO DAILY 08/02/19 08/02/19 History [Preservision Areds 2 Softgel] Allergies Allergy/AdvReac Type Severity Reaction Status Date / Time No Known Allergies Allergy Verified 08/02/19 15:06 Physical Exam Vitals: Vital Signs Temp Pulse Resp BP Pulse Ox 08/02/19 19:12 60 08/02/19 19:00 60 20 166/90 92 L 08/02/19 18:30 60 159/92 93 L 08/02/19 18:00 60 20 161/88 92 L 08/02/19 17:30 63 18 157/90 91 L 08/02/19 17:00 60 18 152/99 94 L 08/02/19 16:30 60 20 142/85 93 L 08/02/19 16:00 60 16 145/85 95 08/02/19 15:30 60 16 159/86 08/02/19 15:00 60 16 151/77 94 L 08/02/19 14:30 151/77 08/02/19 14:24 62 08/02/19 14:17 20 151/77 08/02/19 14:04 22 08/02/19 14:00 60 16 148/85 100 08/02/19 13:53 62 08/02/19 13:39 16 89 L 08/02/19 13:23 97.4 F L 53 L 22 162/86 90 L Intake and Output 08/02/19 08/02/19 08/02/19 06:59 14:59 22:59 Other: Weight 113.398 kg Appearance in mild degree of respiratory distress, able to speak sentences for now. Head exam was generally normal. There was no scleral icterus or corneal arcus. Mucous membranes were moist. Neck was supple and without jugular venous distension, thyromegaly, or carotid bruits. Carotids were easily palpable bilaterally. There was no adenopathy. Lungs sounds are diminished bilaterally especially in the left lung base and there is some bilateral basilar crackles Heart sounds are regular, positive S1-S2 and there is a faint grade 3/6 systolic ejection murmur left lateral sternal border. Abdominal exam revealed normal bowel sounds. The abdomen was soft, non-tender, and without masses, organomegaly, or appreciable enlargement of the abdominal aorta. Examination of the extremities revealed easily palpable radial, femoral and pedal pulses. There was no cyanosis, clubbing and the patient is +1-2 pitting edema lower extremities bilaterally Examination of the skin revealed no evidence of significant rashes, suspicious appearing nevi or other concerning lesions. Neurologically awake and alert and there is no focal neurological deficit. Results - Laboratory Findings CBC and BMP: 08/02/19 13:47 08/02/19 13:47 PT/INR, D-dimer PT 11.7 sec (9.0-12.0) 08/02/19 13:47 INR 1.1 (<1.2) 08/02/19 13:47 Abnormal lab findings: Abnormal Labs 08/02/19 08/02/19 13:47 13:47 MCV 79.0 L MCH 24.7 L Neutrophils # 8.5 H Lymphocytes # 0.8 L Sodium 135 L Chloride 96 L Carbon Dioxide 33 H BUN 25 H Glucose 108 H Alkaline Phosphatase 151 H - Diagnostic Findings Chest x-ray: image reviewed Assessment and Plan Plan: 1 malignant mesothelioma of pleura Unfortunately is getting worse gradually and his performance and functional status is gotten worse with increased lower extremity edema and increased shortness of breath with limited amount of activity. Is also experiencing pain in the left chest. Concern of the malignancy infiltrating the heart, pleural space and contributing to increased heart failure. The patient's proBNP level is elevated. He responded to Lasix. Echocardiogram is to follow. 2 acute hypoxic respiratory failure secondary to above 3 COPD 4 hypertension 5 hypothyroidism 6 history of atrial fibrillation and dilated with Eliquis. The patient's cardiac rhythm is paced for now 7 hyperlipidemia 8 history of complete AV block and the patient has a pacemaker in place 9 history of generalized anxiety disorder 10 past additional symptoms including diminished appetite and weight loss or related to underlying malignancy. Plan Admit this patient to the hospital. Start IV Lasix. Continue bronchodilators. Continue steroids. Obtain an echocardiogram to assess function and same time to rule out any pericardial effusion or invasion with malignant mesothelioma. Consult oncology. Prognosis extremely poor specially with his progressive and aggressive mesothelioma diagnosis. We'll continue to follow. Performance and functional status progressively getting worse. Not sure if is a candidate for any chemoradiation therapy. We'll given advice from oncology.
[2019-08-02] MEDS ORDERED: ALPRAZolam 0.5 MG TAB PO PRN (21:27)
[2019-08-02] MEDS ORDERED: DOCUSATE 100 MG CAP PO PRN (21:28)
[2019-08-02] MEDS ORDERED: SENNOSIDES 8.6 MG TAB PO PRN (21:28)
[2019-08-02] MEDS: APIXABAN 5 MG TAB PO SCH (21:55)
[2019-08-03] MEDS: FUROSEMIDE 10 MG/ML 4 ML VIAL IV SCH ×2 (05:39→16:02)
[2019-08-03] MEDS: methylPREDNISolone SOD SUCCI 125 MG/2 ML VIAL IV SCH ×4 (05:39→22:53)
[2019-08-03] MEDS: LEVOTHYROXINE 25 MCG TAB PO SCH (05:39)
[2019-08-03 06:09] LABS: Glucose,Whole Blood 131 mg/dL (75-99)
[2019-08-03] MEDS: IPRATROPIUM-ALBUTEROL 3 ML NEB INHALATION SCH ×4 (08:25→19:42)
[2019-08-03] MEDS: TAMSULOSIN 0.4 MG CAP.ER.24H PO SCH (09:05)
[2019-08-03] MEDS: ASPIRIN 81 MG PO SCH (09:05)
[2019-08-03] MEDS: MULTIVITAMINS, THERA 1 EACH TAB PO SCH (09:05)
[2019-08-03] MEDS: APIXABAN 5 MG TAB PO SCH ×2 (09:05→21:01)
--- NOTE | 2019-08-03 10:35 | ECHOF ---
Referral Reason:CHF, pericardial effusion MEASUREMENTS -------- HEIGHT: 188.0 cm WEIGHT: 102.1 kg BP: 166/84 IVSd: 1.5 cm (0.6 - 1.1) LVIDd: 5.2 cm (3.9 - 5.3) LVPWd: 1.4 cm (0.6 - 1.1) IVSs: 1.6 cm LVIDs: 3.0 cm LVPWs: 2.6 cm LA Diam: 5.1 cm (2.7 - 3.8) LAESV Index (A-L): 54.16 ml/m Ao Diam: 4.0 cm (2.0 - 3.7) AV Cusp: 1.0 cm (1.5 - 2.6) LA Diam: 4.5 cm (2.7 - 3.8) MV EXCURSION: 23.818 mm (> 18.000) MV EF SLOPE: 101 mm/s (70 - 150) EPSS: 0.7 cm MV E Ervin: 1.10 m/s MV DecT: 134 ms MV A Ervin: 0.39 m/s MV E/A Ratio: 2.83 AV maxP.28 mmHg AV meanP.72 mmHg RAP: 5.00 mmHg RVSP: 48.79 mmHg FINDINGS -------- Sinus rhythm. This was a technically adequate study. The left ventricular size is normal. There is mild concentric left ventricular hypertrophy. Overa ll left ventricular systolic function is mild-moderately impaired with, an EF between 40 - 45 %. Le ft ventricular fillimg pressure cannot be estimated due to paced rhythm. Anterseptal Hypokinesis The right ventricle is normal in size. The left atrium is markedly dilated. LA is severely dilated >40 ml/m2 The right atrial size is normal. There is mild aortic stenosis present. Peak/mean gradient across the Aortic Valve is 17.28mmHg / 7. 72mmHg. Mild mitral annular calcification present. Mild mitral regurgitation is present. Mild tricuspid regurgitation present. There is moderate pulmonary hypertension. The right ventric ular systolic pressure, as measured by Doppler, is 48.79mmHg. There is no pulmonic regurgitation present. The aortic root size is normal. There is a small, generalized pericardial effusion present. CONCLUSIONS -------- 1. Sinus rhythm. 2. This was a technically adequate study. 3. The left ventricular size is normal. 4. There is mild concentric left ventricular hypertrophy. 5. Overall left ventricular systolic function is mild-moderately impaired with, an EF between 40 - 45 %. 6. Left ventricular fillimg pressure cannot be estimated due to paced rhythm. 7. Anterseptal Hypokinesis 8. The right ventricle is normal in size. 9. The left atrium is markedly dilated. 10. LA is severely dilated >40 ml/m2 11. The right atrial size is normal. 12. There is mild aortic stenosis present. 13. Peak/mean gradient across the Aortic Valve is 17.28mmHg / 7.72mmHg. 14. Mild mitral annular calcification present. 15. Mild mitral regurgitation is present. 16. Mild tricuspid regurgitation present. 17. There is moderate pulmonary hypertension. 18. The right ventricular systolic pressure, as measured by Doppler, is 48.79mmHg. 19. There is no pulmonic regurgitation present. 20. The aortic root size is normal. 21. There is a small, generalized pericardial effusion present. BICYCLE COURIER: Sophia Jasso RDCS
[2019-08-03] MEDS: amLODIPine 5 MG TAB PO SCH (10:51)
[2019-08-03 11:49] LABS: Glucose,Whole Blood 185 mg/dL (75-99)
[2019-08-03] MEDS: IOPAMIDOL CONTRAST (ORAL USE) VIAL PO PRN ×2 (11:52→12:37)
--- NOTE | 2019-08-03 14:05 | CT ---
EXAMINATION TYPE: CT abdomen pelvis w con DATE OF EXAM: 08/03/2019 COMPARISON: None INDICATION: Constipation DLP: 1883.8 mGycm, Automated exposure control for dose reduction was used. CONTRAST: 100 mL of Isovue 300. Study performed with Oral Contrast TECHNIQUE: Axial images were obtained from above the diaphragm to the pubic rami in the axial plane a t 5 mm thick sections. Reconstructed images are reviewed on the computer in the coronal plane. FINDINGS: Limited CT sections are obtained the lung bases. There is a small to moderate right pleural effusion . Some adjacent compressive atelectasis is likely present. There is a lobular appearance to the low d ensity pleural region. Pleural thickening or loculated effusion should be considered. Some fibrosis t ype changes appear to be present at the left lung base. Small pericardial effusion is present.. CT ABDOMEN: Small amount of ascites is adjacent to the liver. A small amount of Fluid is within the r ight paracolic gutter. No significant ascites is within the pelvis. Liver: Normal Spleen: Normal Pancreas: Normal Adrenal glands: The adrenal glands are normal. Gallbladder: Normal Kidneys: No masses are evident. No hydronephrosis is present. No cysts are present. Delayed images were obtained through the kidneys, which remain unremarkable. Aorta: Vascular calcification is within the aorta. Inferior vena cava: Normal. CT PELVIS: Loops of bowel within the abdomen and pelvis are normal. Fecal debris is through the colon. There are loops of bowel which are incompletely distended or lack oral contrast limiting their evaluation. Appendix: Normal as visualized. Urinary bladder: Normal. Genitourinary structures: Prostate is prominent and contains calcification. Osseous structures: No suspicious lytic or sclerotic lesions. IMPRESSIONS: 1. Bilateral pleural effusions. This may be loculated on the left. Additionally, pleural thickening could be considered on the differential for the left lung base findings. 2. Small pericardial effusion. 3. Small amount of ascites adjacent to the liver. 4. Diverticulosis without acute diverticulitis. 5. Mild fecal retention.
--- NOTE | 2019-08-03 14:40 | P.HPIM ---
History of Present Illness H&P Date: 08/03/19 Chief Complaint: ADAM This is a 74-year-old male patient of Dr. Juarez, Dr. 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 Patient has had extensive outpatient workup and on Thursday last week, he was diagnosed with mesothelioma. He has not had follow-up with oncology as of yet. The patient states he has been feeling ill for the past 2 weeks with decreased energy unable to walk to the mailbox, decreased urine output, chest tightness. He has also had progressively worsening dyspnea, lower extremity edema, orthopnea. He complains of a productive cough with clear sputum. He has been using his nebulizer treatments at home without improvement. Patient also also been constipated which is new for him and he is on stool softeners and fiber pills. Patient was scheduled for outpatient stress testing with Dr. Castro next month but due to respiratory difficulties and new diagnosis, this was canceled by his daughter. Patient does not have home O2. Patient came into [facility] emergency center and found to be afebrile, heart rate 53, blood pressure 162/86, pulse ox 90% on room air. CBC was unremarkable, sodium 135, potassium 5.0, chloride 96, CO2 33, BUN 25, creatinine 0.68, blood sugar 108, lactic acid 1.2. Total bilirubin AST and ALT all normal, alkaline phosphatase 151, albumin 3.5. Troponin negative, proBNP 3580. Chest x-ray shows patchy perihilar and basilar infiltrates with left- sided effusion essentially unchanged. EKG was a paced rhythm. Patient was admitted to the cardiac unit and started on Lasix, antibiotics and consults requested with Dr. Nobles, oncology and cardiology consult requested as well. Due to ongoing constipation, a CAT scan of the abdomen and pelvis also ordered. Echocardiogram revealed EF of 40-45%, mild mitral regurgitation, mild tricuspid regurgitation, moderate pulmonary hypertension. Patient's previous echocardiogram had a normal EF. A CT of the abdomen and pelvis with contrast revealed bilateral pleural effusions. This may be loculated on the left. Additional pleural thickening could be considered in the differential of the left lung base findings. Small pericardial effusion, small amount of ascites adjacent to the liver. Diverticulosis without acute diverticulitis. Mild fecal retention. Review of Systems Constitutional: Reports anorexia, Reports fatigue, Reports lethargy, Reports malaise, Reports poor appetite, Reports weakness, Denies chills, Denies fever Eyes: denies blurred vision, denies pain Ears, nose, mouth and throat: Denies dysphagia, Denies headache, Denies nasal congestion, Denies nasal discharge, Denies sore throat, Denies vertigo Cardiovascular: Reports chest pain, Reports dyspnea on exertion, Reports edema, Reports leg edema, Reports orthopnea, Reports shortness of breath Respiratory: Reports cough, Reports cough with sputum, Reports dyspnea, Reports wheezing, Denies excessive sputum, Denies hemoptysis, Denies home oxygen Gastrointestinal: Reports constipation, Reports loss of appetite, Denies abdominal pain, Denies diarrhea, Denies nausea, Denies vomiting Genitourinary: Denies dysuria, Denies urinary frequency, Denies urinary retention Musculoskeletal: Reports muscle weakness, Denies myalgias Integumentary: Denies pruritus, Denies rash, Denies wounds Neurological: Denies change in mentation, Denies change in speech, Denies numbness, Denies seizures, Denies weakness Psychiatric: Denies anxiety, Denies depression Endocrine: Denies fatigue, Denies weight change Past Medical History Past Medical History: Atrial Fibrillation, COPD, Eye Disorder, Hyperlipidemia, Hypertension Additional Past Medical History / Comment(s): Mesothelioma, Macular degenera tion, history of left pleural effusions w/ Pleur-X catheter History of Any Multi-Drug Resistant Organisms: None Reported Past Surgical History: Adenoidectomy, Pacemaker, Tonsillectomy Additional Past Surgical History / Comment(s): Colonoscopy/polypectomy, cataracts - lens implants,. left thoracentesis, [employer], Pleur-X catheter Lt pleural Past Anesthesia/Blood Transfusion Reactions: No Reported Reaction Type of Cardiac Device: Permanent Pacemaker Device Placement Date:: 06/2017 Past Psychological History: No Psychological Hx Reported Smoking Status: Former smoker Past Alcohol Use History: Occasional Additional Past Alcohol Use History / Comment(s): Patient was a smoker for approximately 20-25 years. He drinks alcohol occasionally. He lives alone. He was riding his bike 4 miles per day. [id number] is Evelin. Past Drug Use History: None Reported - Past Family History Mother Family Medical History: Cancer, Diabetes Mellitus Additional Family Medical History / Comment(s): Breast Father Family Medical History: No Reported History Medications and Allergies Home Medications Medication Instructions Recorded Confirmed Type Atorvastatin [Lipitor] 10 mg PO PC-SUPPER 01/08/16 08/02/19 History Multivitamin [Men's Multi-Vitamin] 1 tab PO DAILY 01/08/16 08/02/19 History Budesonide/Formoterol Fumarate 1 puff INHALATION RT-DAILY 06/23/17 08/02/19 History [Symbicort 160-4.5 Mcg Inhaler] Furosemide [Lasix] 40 mg PO DAILY tab 06/27/17 08/02/19 Rx Levothyroxine Sodium [Synthroid] 25 mcg PO DAILY@0630 tab 06/27/17 08/02/19 Rx Apixaban [Eliquis] 5 mg PO BID 02/17/18 08/02/19 History amLODIPine [Norvasc] 5 mg PO DAILY 02/17/18 08/02/19 History Aspirin [Adult Low Dose Aspirin EC] 81 mg PO DAILY 03/22/18 08/02/19 History ALPRAZolam [Xanax] 0.25 - 0.5 mg PO TID PRN 08/02/19 08/02/19 History Albuterol Nebulized [Ventolin 2.5 mg INHALATION RT-QID 08/02/19 08/02/19 History Nebulized] Albuterol Sulfate [Ventolin HFA] 1 - 2 puff INHALATION RT-Q6H PRN 08/02/19 08/02/19 History [place]-3 Fatty Acids/Fish Oil [Fish 1,000 mg PO DAILY 08/02/19 08/02/19 History Oil 1,000 mg Softgel] Saw [place] 900mg 900 mg PO DAILY 08/02/19 08/02/19 History Tamsulosin [Flomax] 0.4 mg PO DAILY 08/02/19 08/02/19 History Vit C/E/Zn/Coppr/Lutein/Zeaxan 2 cap PO DAILY 08/02/19 08/02/19 History [Preservision Areds 2 Softgel] Allergies Allergy/AdvReac Type Severity Reaction Status Date / Time No Known Allergies Allergy Verified 08/02/19 15:06 Physical Exam Vitals: Vital Signs Temp Pulse Pulse Resp BP BP Pulse Ox 08/03/19 09:15 97.7 F 60 16 144/75 93 L 08/03/19 08:35 60 08/03/19 08:25 60 08/03/19 04:00 60 18 166/84 94 L 08/03/19 00:00 60 18 167/81 98 08/02/19 20:10 60 20 08/02/19 20:00 98.5 F 60 20 130/71 91 L 08/02/19 19:28 60 08/02/19 19:12 60 08/02/19 19:00 60 20 166/90 92 L 08/02/19 18:56 98.5 F 60 20 130/71 91 L 08/02/19 18:30 60 159/92 93 L 08/02/19 18:00 60 20 161/88 92 L 08/02/19 17:30 63 18 157/90 91 L 08/02/19 17:00 60 18 152/99 94 L 08/02/19 16:30 60 20 142/85 93 L 08/02/19 16:00 60 16 145/85 95 08/02/19 15:30 60 16 159/86 08/02/19 15:00 60 16 151/77 94 L 08/02/19 14:30 151/77 08/02/19 14:24 62 08/02/19 14:17 20 151/77 08/02/19 14:04 22 08/02/19 14:00 60 16 148/85 100 08/02/19 13:53 62 08/02/19 13:39 16 89 L 08/02/19 13:23 97.4 F L 53 L 22 162/86 90 L Intake and Output 08/02/19 08/03/19 08/03/19 22:59 06:59 14:59 Intake Total 240 Output Total 500 Balance -500 240 Intake: Oral 240 Output: Urine 500 Other: Voiding Method Urinal Urinal Weight 113.398 kg 102.5 kg Gen: This is a 74-year-old male. He is resting in bed and appears to be in mild respiratory distress. Patient also appears anxious. HEENT: Head is atraumatic, normocephalic. Pupils equal, round. Sclerae is anicteric. Oral mucous membranes are moist. NECK: Supple. No JVD. No lymphadenopathy. No thyromegaly. LUNGS: Diminished bilaterally with bilateral crackles more so on the right. No intercostal retractions. HEART: Regular rate and rhythm. Systolic murmur. ABDOMEN: Soft. Bowel sounds are present. No masses. No tenderness. EXTREMITIES: 1+ bilateral pedal edema. No calf tenderness. NEUROLOGICAL: Patient is awake, alert and oriented x3. Cranial nerves 2 through 12 are grossly intact. Results CBC & Chem 7: 08/02/19 13:47 08/02/19 13:47 Labs: Abnormal Lab Results - Last 24 Hours (Table) 08/02/19 08/02/19 08/03/19 Range/Units 13:47 13:47 06:07 MCV 79.0 L (80.0-100.0) fL MCH 24.7 L (25.0-35.0) pg Neutrophils # 8.5 H (1.3-7.7) k/uL Lymphocytes # 0.8 L (1.0-4.8) k/uL Sodium 135 L (137-145) mmol/L Chloride 96 L (98-107) mmol/L Carbon Dioxide 33 H (22-30) mmol/L BUN 25 H (9-20) mg/dL Glucose 108 H (74-99) mg/dL POC Glucose (mg/dL) 131 H (75-99) mg/dL Alkaline Phosphatase 151 H (38-126) U/L Thrombosis Risk Factor Assmnt - DVT/VTE Prophylaxis DVT/VTE Prophylaxis: Pharmacologic Prophylaxis ordered - Choose All That Apply Any of the Below Risk Factors Present?: Yes Each Factor Represents 1 point: Abnormal pulmonary function (COPD), Obesity (BMI >25), Serious lung disease incl. pneumonia (< 1month), Swollen legs (current) Other Risk Factors: Yes Each Risk Factor Represents 3 Points: Age 75 years or older Other congenital or acquired thrombophilia - If yes, enter type in comment: No Thrombosis Risk Factor Assessment Total Risk Factor Score: 7 Thrombosis Risk Factor Assessment Level: High Risk Assessment and Plan Plan: 1. Acute hypoxic respiratory failure secondary to malignant mesothelioma of the pleura and acute systolic heart failure. Consult with Dr. Giuliano charles. Consult with cardiology added. Continue DuoNeb treatments 4 times daily and every 4 hours as needed, Lasix 40 mg IV every 12 hours, Solu-Medrol 60 mg IV every 6 hours. 2. COPD with acute exacerbation. Continue as in #1. 3. Chest pain. Cardiology consult. Repeat troponins ordered. 4. Hypertension. Continue Norvasc 5 mg daily. 5. Chronic atrial fibrillation status post pacemaker for sick sinus syndrome. Continue eliquis 5 mg twice daily. 6. Constipation. CAT scan as above. Continue Colace 100 mg twice daily and Senokot as needed. 7. Hypothyroidism. Continue levothyroxine 25 g daily. 8. Benign prostatic hypertrophy. Continue Flomax. 9. GI prophylaxis. Protonix. 10. DVT prophylaxis. Heparin subcu. Patient will be admitted to the hospital for a minimum of 2 night stay. Discharge plan: To be determined Impression and plan of care have been directed as dictated by the signing physician. Aneta Cantu nurse practitioner acting as scribe for signing physician.
--- NOTE | 2019-08-03 17:07 | P.PN ---
Subjective Progress Note Date: 08/03/19 The patient is very well-known to me. He is 75. I took care of him approximately 1-1/2 years ago for a new onset left-sided pleural effusion. The fluid was drained on multiple occasions. Ultimately needed a Pleurx catheter and the fluid recovered and the catheter was removed. He did great. The fluid cytology on 2 separate occasions came back negative. The CAT scan of the chest back then did not show any evidence of malignancy. Nevertheless, especially over the past 2 months, the patient is experiencing some increased shortness of breath and pain across left lateral chest area. He was seen in the emergency recently and he was found to have a left basilar infiltrate/opacity along the left lateral chest border.. The patient is having night sweats. The patient is having a dry cough. No weight loss. Appetite is good. No documented fever. No nausea. No vomiting. He is feeling constipated. He was having also increase urinary frequency and he was placed on Flomax which improved his urine output. As mentioned, the chest x- ray showed left pleural thickening along the left lateral chest border. There is also a left-sided effusion which is very small at this point in time. He has a pacemaker in place. No syncope. He has served in the [employer] and there is some exposure to asbestos. Based on that, I ordered a computed tomography scan of the chest that shows significant abnormalities including There is new abnormal nodular thickening of the left hemithorax pleural surface seen diffusely. Masslike areas are most pronounced on series 3 image 33 along the mediastinal border appearing to have mediastinal invasion. The most anterior measures 6.4 x 4.1 cm and invading into the mediastinum below the left main pulmonary artery there is a second mass measuring 5.0 x 5.0 cm. Other nodular masslike densities are seen along the pleural surface. Another one of the largest abutting the pericardial surface is seen in the anterior left midlung measuring at least 7.6 x 4.1 cm on image 43. No calcifications are seen. Density of these masses are slightly greater than fluid. There is left hemithorax volume loss. Visualized portions of the left lung demonstrates few blebs and scattered areas of atelectasis. In the right lower lobe there is a 7 x 8 mm pulmonary nodule. A percutaneous needle biopsy of the lung through interventional radiology and further diagnosis of malignant mesothelioma. His other comorbidities include hypertension, hypothyroidism, atrial fibrillation and he has a pacemaker for complete AV block. Currently is moving around difficulty. He is developing progressive edema in lower extremities bilaterally. He is weak. His performance and functional status is progressively getting worse. He has chest wall pain and this is in the order of 4/10 The patient was supposed to be seen by medical oncology and radiation oncology. Meanwhile, became progressively more short of breath. He developed lower extremity edema. He came into the emergency department this evening having inc reased shortness of breath and he was immediately given IV Solu-Medrol and IV Lasix and subsequently improved. He is currently on oxygen at 4 L. He is feeling better. His chest x-ray showedPatchy perihilar and bilateral basilar infiltrates and a left-sided pleural effusion that was essentially unchanged and the blood work showed a white cell count 10.5 with hemoglobin of 13.4. The BNP was in the 3500 range and the patient's arrest electrodes are all within normal limits. He is being admitted to the medical floor for now. He is quite tired and fatigued and debilitated. He is also quite anxious. No chest pain. He is on long-term anticoagulation with Eliquis regarding atrial fibrillation. His EKG showing a paced rhythm with a bundle-branch block pattern. On 08/03/2019 the patient is still short of breath. He is being diuresed IV Lasix. Echocardiogram was done and echo showed a ejection fraction of 40-45% and there was mild to moderate impairment of the LV function, there was anteroseptal hypokinesis, RV size and function was within normal limits, moderate degree of pulmonary hypertension with a PA pressure of 48. I'll a was severely dilated and there was mild aortic stenosis. The CAT scan of the abdomen showed that the patient has developed a right-sided pleural effusion along with compressive atelectasis in the right lung base. There was extensive pleural disease/malignancy along the left lung and a small pericardial effusion was also present. There was small amount of ascites adjacent to the liver. No other intra-abdominal abnormalities noted other than some fecal stasis and the patient did have a bowel movement today. Awaiting oncology evaluation. Mean while, the patient is on oxygen 3 L and the pulse ox 98% and the patient is afebrile for now. Objective - Vital Signs Vital signs: Vital Signs Temp 98.3 F 08/03/19 16:09 Pulse 60 08/03/19 16:09 Resp 18 08/03/19 16:09 BP 142/76 08/03/19 16:09 Pulse Ox 95 08/03/19 16:09 Intake & Output 08/02/19 08/03/19 08/03/19 18:59 06:59 18:59 Intake Total 1440 Output Total 500 0 Balance -500 1440 Weight 113.398 kg 102.5 kg Intake: Oral 1440 Output: Urine 500 0 Other: Voiding Method Urinal Urinal # Voids 0 - Exam Appearance in mild degree of respiratory distress, able to speak sentences for now. Head exam was generally normal. There was no scleral icterus or corneal arcus. Mucous membranes were moist. Neck was supple and without jugular venous distension, thyromegaly, or carotid bruits. Carotids were easily palpable bilaterally. There was no adenopathy. Lungs sounds are diminished bilaterally especially in the left lung base and there is some bilateral basilar crackles Heart sounds are regular, positive S1-S2 and there is a faint grade 3/6 systolic ejection murmur left lateral sternal border. Abdominal exam revealed normal bowel sounds. The abdomen was soft, non-tender, and without masses, organomegaly, or appreciable enlargement of the abdominal aorta. Examination of the extremities revealed easily palpable radial, femoral and pedal pulses. There was no cyanosis, clubbing and the patient is +1-2 pitting edema lower extremities bilaterally Examination of the skin revealed no evidence of significant rashes, suspicious appearing nevi or other concerning lesions. Neurologically awake and alert and there is no focal neurological deficit. - Labs CBC & Chem 7: 08/02/19 13:47 08/02/19 13:47 Labs: Abnormal Lab Results - Last 24 Hours (Table) 08/03/19 08/03/19 Range/Units 06:07 11:43 POC Glucose (mg/dL) 131 H 185 H (75-99) mg/dL Microbiology - Last 24 Hours (Table) 08/02/19 14:12 Blood Culture - Preliminary Blood No Growth after 24 hours Assessment and Plan Plan: 1 malignant mesothelioma of pleura Unfortunately is getting worse gradually and his performance and functional status is gotten worse with increased lower extremity edema and increased shortness of breath with limited amount of activity. Is also experiencing pain in the left chest. Concern of the malignancy infiltrating the heart, pleural space and contributing to increased heart failure. The patient's proBNP level is elevated. He responded to Lasix. Echocardiogram is to follow. 2 acute hypoxic respiratory failure secondary to above 3 COPD 4 hypertension 5 hypothyroidism 6 history of atrial fibrillation and dilated with Eliquis. The patient's cardiac rhythm is paced for now 7 hyperlipidemia 8 history of complete AV block and the patient has a pacemaker in place 9 history of generalized anxiety disorder 10 past additional symptoms including diminished appetite and weight loss or related to underlying malignancy. 11 CHF with an EF of around 40-45% 12 right-sided pleural effusion, rule out secondary to CHF. Rule out secondary to mesothelioma as this can be an early manifestation of mesothelioma involving the right pleural surface Plan Echo was noted. Continue Lasix. Awaiting oncology consultation. Prognosis poor. Discussed the case with the family. We will be awaiting an oncology evaluation to see there is anything can be offered to this patient in terms of his underlying malignancy.
[2019-08-03 17:55] LABS: Glucose,Whole Blood 148 mg/dL (75-99)
[2019-08-03] MEDS: ATORVASTATIN 10 MG TAB PO SCH (18:19)
[2019-08-03] MEDS ORDERED: RX INFO: IV CONTRAST WAS GIVEN 1 EACH MISC MISCELLANE PRN (18:43)
--- NOTE | 2019-08-03 19:03 | P.CONS ---
History of Present Illness - Reason for Consult Consult date: 08/03/19 NSC squamous cell lung ca Requesting physician: Andry Nobles - Chief Complaint SOB, BLE edema - History of Present Illness Mister Islas is a very pleasant 74-year-old male patient of Dr. Nobles and he was taking care of him for quite some time. Patient and his family state that annually in June for the past 2 years patient has had pulmonary problems arise. Patient has a history of pleural effusion, with thoracentesis last year, Pleurx catheter, no malignancy in the cytology 2 instances. Patient is had imaging with no evidence of malignancy. Over the last 2 months patient has had increased shortness of breath, pain across the chest. He started having progressive swelling in the lower extremities which is what prompted his family to bring him to the hospital. He is being treated symptomatically with Lasix and steroids, he is on oxygen, he states that he definitely feels better than when he came into the hospital. We have been asked to see the patient because of new diagnosis of mesothelioma. Patient's symptoms-night sweats, dry cough and history of maybe service with asbestos exposure-prompted CT chest. Mass like area identified along the mediastinal border, second mass below the left main pulmonary artery, other mass like densities along the pleural surface. Patient had percutaneous needle biopsy by Interventional Radiology 07/26 with pathology positive for mesothelioma. He had f/u with Dr. Haq next week to complete staging and develop a treatment plan. Review of Systems 14 point review of systems is negative except as stated in HPI Past Medical History Past Medical History: Atrial Fibrillation, Cancer, COPD, Eye Disorder, Hy perlipidemia, Hypertension Additional Past Medical History / Comment(s): Mesothelioma, Macular degeneration, history of left pleural effusions w/ Pleur-X catheter History of Any Multi-Drug Resistant Organisms: None Reported Past Surgical History: Adenoidectomy, Pacemaker, Tonsillectomy Additional Past Surgical History / Comment(s): Colonoscopy/polypectomy, cataracts - lens implants,. left thoracentesis, [employer]ER, Pleur-X catheter Lt pleural Past Anesthesia/Blood Transfusion Reactions: No Reported Reaction Type of Cardiac Device: Permanent Pacemaker Device Placement Date:: 06/2017 Past Psychological History: No Psychological Hx Reported Smoking Status: Former smoker Past Alcohol Use History: Occasional Additional Past Alcohol Use History / Comment(s): Patient was a smoker for approximately 20-25 years. He drinks alcohol occasionally. He lives alone. He was riding his bike 4 miles per day. [id number] is Evelin. Past Drug Use History: None Reported - Past Family History Mother Family Medical History: Cancer, Diabetes Mellitus Additional Family Medical History / Comment(s): Breast Father Family Medical History: No Reported History Medications and Allergies Home Medications Medication Instructions Recorded Confirmed Type Atorvastatin [Lipitor] 10 mg PO PC-SUPPER 01/08/16 08/02/19 History Multivitamin [Men's Multi-Vitamin] 1 tab PO DAILY 01/08/16 08/02/19 History Budesonide/Formoterol Fumarate 1 puff INHALATION RT-DAILY 06/23/17 08/02/19 History [Symbicort 160-4.5 Mcg Inhaler] Furosemide [Lasix] 40 mg PO DAILY tab 06/27/17 08/02/19 Rx Levothyroxine Sodium [Synthroid] 25 mcg PO DAILY@0630 tab 06/27/17 08/02/19 Rx Apixaban [Eliquis] 5 mg PO BID 02/17/18 08/02/19 History amLODIPine [Norvasc] 5 mg PO DAILY 02/17/18 08/02/19 History Aspirin [Adult Low Dose Aspirin EC] 81 mg PO DAILY 03/22/18 08/02/19 History ALPRAZolam [Xanax] 0.25 - 0.5 mg PO TID PRN 08/02/19 08/02/19 History Albuterol Nebulized [Ventolin 2.5 mg INHALATION RT-QID 08/02/19 08/02/19 History Nebulized] Albuterol Sulfate [Ventolin HFA] 1 - 2 puff INHALATION RT-Q6H PRN 08/02/19 08/02/19 History [place]-3 Fatty Acids/Fish Oil [Fish 1,000 mg PO DAILY 08/02/19 08/02/19 History Oil 1,000 mg Softgel] Saw Rush 900mg 900 mg PO DAILY 08/02/19 08/02/19 History Tamsulosin [Flomax] 0.4 mg PO DAILY 08/02/19 08/02/19 History Vit C/E/Zn/Coppr/Lutein/Zeaxan 2 cap PO DAILY 08/02/19 08/02/19 History [Preservision Areds 2 Softgel] Allergies Allergy/AdvReac Type Severity Reaction Status Date / Time No Known Allergies Allergy Verified 08/02/19 15:06 Physical Exam Vitals: Vital Signs Temp Pulse Pulse Resp BP BP Pulse Ox 08/03/19 16:09 98.3 F 60 18 142/76 95 08/03/19 16:01 64 08/03/19 16:00 60 18 08/03/19 15:49 62 08/03/19 12:00 60 18 08/03/19 11:24 97.7 F 60 18 166/79 94 L 08/03/19 09:15 97.7 F 60 16 144/75 93 L 08/03/19 08:35 60 08/03/19 08:25 60 08/03/19 08:00 60 18 08/03/19 04:00 60 18 166/84 94 L 08/03/19 00:00 60 18 167/81 98 08/02/19 20:10 60 20 08/02/19 20:00 98.5 F 60 20 130/71 91 L 08/02/19 19:28 60 08/02/19 19:12 60 08/02/19 19:00 60 20 166/90 92 L 08/02/19 18:56 98.5 F 60 20 130/71 91 L Intake and Output 08/03/19 08/03/19 08/03/19 06:59 14:59 22:59 Intake Total 1440 222 Output Total 500 0 Balance -500 1440 222 Intake: Oral 1440 222 Output: Urine 500 0 Other: Voiding Method Urinal Urinal Urinal # Voids 0 Weight 102.5 kg - Constitutional General appearance: cooperative, mild distress, morbidly obese - EENT Eyes: anicteric sclerae, EOMI ENT: hearing grossly normal, pharyngeal erythema - Neck Neck: no lymphadenopathy - Respiratory labored respirations at rest Respiratory: bilateral: diminished - Cardiovascular Heart sounds: normal: S1, S2 Abnormal Heart Sounds: no systolic murmur, no diastolic murmur, no rub, no S3 Gallop, no S4 Gallop, no click, no other leg Peripheral Edema: bilateral: 3+, Pitting - Gastrointestinal General gastrointestinal: no absent bowel sounds, no decreased bowel sounds, no distended, no hepatomegaly, no hyperactive bowel sounds, normal bowel sounds, no organomegaly, no rigid, no scaphoid, soft, no splenomegaly, no tenderness, no um bilical hernia, no ventral hernia - Integumentary Integumentary: pale - Neurologic generalized tremor noted, slight speech slurring - Musculoskeletal Musculoskeletal: generalized weakness - Psychiatric Psychiatric: A&O x's 3, appropriate affect, intact judgment & insight Results CBC & Chem 7: 08/02/19 13:47 08/02/19 13:47 Labs: Abnormal Lab Results - Last 24 Hours (Table) 08/03/19 08/03/19 08/03/19 Range/Units 06:07 11:43 17:52 POC Glucose (mg/dL) 131 H 185 H 148 H (75-99) mg/dL Microbiology - Last 24 Hours (Table) 08/02/19 14:12 Blood Culture - Preliminary Blood No Growth after 24 hours Comments: Pathology reports reviewed CT scan - chest: report reviewed Assessment and Plan (1) Mesothelioma Narrative/Plan: Discussed with the patient and the family the positive results of his biopsy for mesothelioma. I told him that we needed to complete scans in order to give the stage of the disease. Stage impacts prognosis and treatment options. CT scans of the abdomen and pelvis were ordered. Dr. Haq requested a CT of the head. Follow-up appointment to see Dr. Haq next Thursday for treatment plan. Patient's family is wanting to know stage, I told them we will get that to them as soon as scans complete. All of pt and family's questions were answered to the best of my ability. Current Visit: Yes Status: Acute Priority: High Code(s): C45.9 - MESOTHELIOMA, UNSPECIFIED SNOMED Code(s): 659607990
[2019-08-03 20:49] LABS: Glucose,Whole Blood 167 mg/dL (75-99)
[2019-08-03] MEDS: INSULIN ASPART (NovoLOG) 100 UNIT/ML VIAL SQ SCH (21:01)
[2019-08-04] MEDS: INSULIN ASPART (NovoLOG) 100 UNIT/ML VIAL SQ SCH ×4 (05:57→21:04)
[2019-08-04] MEDS: LEVOTHYROXINE 25 MCG TAB PO SCH (05:57)
[2019-08-04] MEDS: methylPREDNISolone SOD SUCCI 125 MG/2 ML VIAL IV SCH ×4 (05:58→22:46)
[2019-08-04] MEDS: FUROSEMIDE 10 MG/ML 4 ML VIAL IV SCH (05:58)
[2019-08-04 06:05] LABS: Glucose,Whole Blood 153 mg/dL (75-99)
[2019-08-04 06:54] LABS: HCT 43.3 % (39.0-53.0); HGB 12.9 gm/dL (13.0-17.5); Hypochromasia Moderate; MCH 23.9 pg (25.0-35.0); MCHC 29.9 g/dL (31.0-37.0); MCV 80.1 fL (80.0-100.0); Mean Platelet Volume 6.6; Platelet Count 244 k/uL (150-450)
[2019-08-04 07:26] LABS: Calcium 9.1 mg/dL (8.4-10.2); Potassium 5.3 mmol/L (3.5-5.1)
[2019-08-04] MEDS: IPRATROPIUM-ALBUTEROL 3 ML NEB INHALATION SCH ×4 (07:29→19:51)
[2019-08-04] MEDS: APIXABAN 5 MG TAB PO SCH ×2 (07:50→20:37)
[2019-08-04] MEDS: amLODIPine 5 MG TAB PO SCH (07:50)
[2019-08-04] MEDS: TAMSULOSIN 0.4 MG CAP.ER.24H PO SCH (07:50)
[2019-08-04] MEDS: ASPIRIN 81 MG PO SCH (07:50)
[2019-08-04] MEDS: MULTIVITAMINS, THERA 1 EACH TAB PO SCH (07:50)
--- NOTE | 2019-08-04 10:05 | CONS ---
CONSULTATION CHIEF COMPLAINT: Shortness of breath and chest pain. HISTORY OF PRESENT ILLNESS: Mr. Melgar is a 74-year-old gentleman with history of sick sinus syndrome status post permanent pacemaker, atrial fibrillation, COPD, mesothelioma with pleural effusion, who is admitted to hospital with symptoms of not feeling well, decreased energy, inability to walk and mild chest tightness. He has cough with clear sputum and has been developing progressively worsening dyspnea and lower extremity edema. At the time of my evaluation, patient appears comfortable at rest. His evaluation so far has revealed bilateral pleural effusion. Troponins are negative. BNP is elevated at 3580. The patient had an EKG on this admission that revealed a paced rhythm. The patient has had recurrent pleural effusions and required pleural catheters for fluid drainage. His chest discomfort is sharp, atypical, probably related to underlying malignancy, PAST MEDICAL HISTORY: Significant for hypertension, atrial fibrillation, dyslipidemia, permanent pacemaker, hypothyroidism, COPD, and mesothelioma. MEDICATIONS: Medications at home included Norvasc 5 mg daily, Flomax, Synthroid, Lasix 40 mg daily, Symbicort, Lipitor, aspirin, Eliquis 5 b.i.d., Ventolin and Xanax. ALLERGIES: There are no known drug allergies. FAMILY HISTORY: Negative for premature coronary artery disease. SOCIAL HISTORY: Negative for current smoking, EtOH abuse or drug abuse. REVIEW OF SYSTEMS: HEENT is unremarkable. Cardiac as described above. Respiratory significant for shortness of breath. GI negative. Genitourinary negative. Allergy/Immunology: Negative. Musculoskeletal negative. Constitutional significant for fatigue, tiredness and weakness. 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 Rest of the system review is not relevant. PHYSICAL EXAMINATION: On exam, patient is comfortable at rest. Heart rate is 68 beats per minute. Blood pressure is 150/81, respiratory 18. There is no jugular venous distention. Chest exam reveals diminished air entry at the bases. Heart exam reveals first and second heart sounds. No gallop. Abdomen is soft. Exam of extremities reveals bilateral pitting edema. EKG shows paced rhythm. An echocardiogram on this admission revealed mild to moderately impaired LV systolic function with moderate pulmonary hypertension. LAB: Showed that the hemoglobin is 13.4. Potassium is 5, creatinine is 0.6. Troponins are negative. BNP is elevated. ASSESSMENT: 1. Acute exacerbation of chronic systolic heart failure. 2. Precordial chest pain probably musculoskeletal. 3. Malignant mesothelioma with pleural effusion. 4. History of atrial fibrillation. 5. History of permanent pacemaker. PLAN: I will treat the patient with IV Lasix. Continue rest of his medications including Norvasc, Eliquis, Lipitor. I will add a beta lesvia. Hold off on an TRISH inhibitor because of the hyperkalemia. MMODL / IJN: [id number] /
[2019-08-04] MEDS ORDERED: FUROSEMIDE 10 MG/ML 2 ML VIAL IV ONE (10:22)
[2019-08-04 11:41] LABS: Glucose,Whole Blood 153 mg/dL (75-99)
--- NOTE | 2019-08-04 11:54 | P.PN ---
Subjective Progress Note Date: 08/04/19 This is a 74-year-old male patient of Dr. Juarez, Dr. 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 Patient has had extensive outpatient workup and on Thursday last week, he was diagnosed with mesothelioma. He has not had follow-up with oncology as of yet. The patient states he has been feeling ill for the past 2 weeks with decreased energy unable to walk to the mailbox, decreased urine output, chest tightness. He has also had progressively worsening dyspnea, lower extremity edema, orthopn ea. He complains of a productive cough with clear sputum. He has been using his nebulizer treatments at home without improvement. Patient also also been constipated which is new for him and he is on stool softeners and fiber pills. Patient was scheduled for outpatient stress testing with Dr. Castro next month but due to respiratory difficulties and new diagnosis, this was canceled by his daughter. Patient does not have home O2. Patient came into [facility] emergency center and found to be afebrile, heart rate 53, blood pressure 162/86, pulse ox 90% on room air. CBC was unremarkable, sodium 135, potassium 5.0, chloride 96, CO2 33, BUN 25, creatinine 0.68, blood sugar 108, lactic acid 1.2. Total bilirubin AST and ALT all normal, alkaline phosphatase 151, albumin 3.5. Troponin negative, proBNP 3580. Chest x-ray shows patchy perihilar and basilar infiltrates with left- sided effusion essentially unchanged. EKG was a paced rhythm. Patient was admitted to the cardiac unit and started on Lasix, antibiotics and consults requested with Dr. Nobles, oncology and cardiology consult requested as well. Due to ongoing constipation, a CAT scan of the abdomen and pelvis also ordered. Echocardiogram revealed EF of 40-45%, mild mitral regurgitation, mild tricuspid regurgitation, moderate pulmonary hypertension. Patient's previous echocardiogram had a normal EF. A CT of the abdomen and pelvis with contrast revealed bilateral pleural effusions. This may be loculated on the left. Additional pleural thickening could be considered in the differential of the left lung base findings. Small pericardial effusion, small amount of ascites adjacent to the liver. Di verticulosis without acute diverticulitis. Mild fecal retention. 08/04: Patient is resting in bed with family at the bedside. Patient states that he is breathing better today than yesterday. He is ambulating with a walker however due to the edema to his lower extremities he's finding that to be difficult. Patient is scheduled for a PET scan on Thursday. Patient is scheduled for a brain CT without contrast. Patient is afebrile, blood pressure 178/89, pulse ox is 93% on 3 L. Respirations are 18, heart rate 68. Review of Systems Constitutional: Reports anorexia, Reports fatigue, Reports lethargy, Reports malaise, Reports poor appetite, Reports weakness, Denies chills, Denies fever Eyes: denies blurred vision, denies pain Ears, nose, mouth and throat: Denies dysphagia, Denies headache, Denies nasal congestion, Denies nasal discharge, Denies sore throat, Denies vertigo Cardiovascular: Reports chest pain, Reports dyspnea on exertion, Reports edema, Reports leg edema, Reports orthopnea, Reports shortness of breath Respiratory: Reports cough, Reports cough with sputum, Reports dyspnea, Reports wheezing, Denies excessive sputum, Denies hemoptysis, Denies home oxygen Gastrointestinal: Reports constipation, Reports loss of appetite, Denies abdominal pain, Denies diarrhea, Denies nausea, Denies vomiting Genitourinary: Denies dysuria, Denies urinary frequency, Denies urinary retent ion Musculoskeletal: Reports muscle weakness, Denies myalgias Integumentary: Denies pruritus, Denies rash, Denies wounds Neurological: Denies change in mentation, Denies change in speech, Denies numbn ess, Denies seizures, Denies weakness Psychiatric: Denies anxiety, Denies depression Endocrine: Denies fatigue, Denies weight change Objective - Vital Signs Vital signs: Vital Signs Temp 98.3 F 08/04/19 09:31 Pulse 68 08/04/19 11:19 Resp 18 08/04/19 09:31 BP 178/89 08/04/19 09:31 Pulse Ox 93 L 08/04/19 09:31 Intake & Output 08/03/19 08/04/19 08/04/19 18:59 06:59 18:59 Intake Total 1662 180 Output Total 0 1050 250 Balance 1662 -1050 -70 Weight 103.5 kg Intake: Oral 1662 180 Output: Urine 0 1050 250 Other: Voiding Method Urinal Urinal Urinal # Voids 0 3 1 # Bowel Movements 1 - Exam Gen: This is a 74-year-old male. He is resting in bed and appears in no acute respiratory distress. HEENT: Head is atraumatic, normocephalic. Pupils equal, round. Sclerae is anicteric. Oral mucous membranes are moist. NECK: Supple. No JVD. No lymphadenopathy. No thyromegaly. LUNGS: Diminished bilaterally with bilateral crackles more so on the right. No intercostal retractions. HEART: Regular rate and rhythm. Systolic murmur. ABDOMEN: Soft. Bowel sounds are present. No masses. No tenderness. EXTREMITIES: 1+ bilateral pedal edema. No calf tenderness. NEUROLOGICAL: Patient is awake, alert and oriented x3. Cranial nerves 2 through 12 are grossly intact. - Labs CBC & Chem 7: 08/04/19 05:58 08/04/19 05:58 Labs: Abnormal Lab Results - Last 24 Hours (Table) 08/03/19 08/03/19 08/04/19 Range/Units 17:52 20:47 05:54 WBC (3.8-10.6) k/uL Hgb (13.0-17.5) gm/dL MCH (25.0-35.0) pg MCHC (31.0-37.0) g/dL Sodium (137-145) mmol/L Potassium (3.5-5.1) mmol/L Chloride (98-107) mmol/L Carbon Dioxide (22-30) mmol/L BUN (9-20) mg/dL Glucose (74-99) mg/dL POC Glucose (mg/dL) 148 H 167 H 153 H (75-99) mg/dL 08/04/19 08/04/19 08/04/19 Range/Units 05:58 05:58 11:27 WBC 13.0 H (3.8-10.6) k/uL Hgb 12.9 L (13.0-17.5) gm/dL MCH 23.9 L (25.0-35.0) pg MCHC 29.9 L (31.0-37.0) g/dL Sodium 134 L (137-145) mmol/L Potassium 5.3 H (3.5-5.1) mmol/L Chloride 93 L (98-107) mmol/L Carbon Dioxide 35 H (22-30) mmol/L BUN 43 H (9-20) mg/dL Glucose 122 H (74-99) mg/dL POC Glucose (mg/dL) 153 H (75-99) mg/dL Microbiology - Last 24 Hours (Table) 08/02/19 14:12 Blood Culture - Preliminary Blood No Growth after 24 hours Assessment and Plan Plan: 1. Acute hypoxic respiratory failure secondary to malignant mesothelioma of the pleura and acute systolic heart failure. Consult with Dr. Giuliano charles. Consult with cardiology added. Continue DuoNeb treatments 4 times daily and every 4 hours as needed, increase Lasix to 60 mg IV every 12 hours, give 20 mg of Lasix now, Solu-Medrol 60 mg IV every 6 hours. 2. COPD with acute exacerbation. Continue as in #1. 3. Chest pain. Cardiology consult. Troponin show upward trend 4. Hypertension. Continue Norvasc 5 mg daily. 5. Chronic atrial fibrillation status post pacemaker for sick sinus syndrome. Continue eliquis 5 mg twice daily. 6. Constipation. CAT scan as above. Continue Colace 100 mg twice daily and Senokot as needed. 7. Hypothyroidism. Continue levothyroxine 25 g daily. 8. Benign prostatic hypertrophy. Continue Flomax. 9. GI prophylaxis. Protonix. 10. DVT prophylaxis. Heparin subcu. Patient will be admitted to the hospital for a minimum of 2 night stay. Discharge plan: To be determined Impression and plan of care have been directed as dictated by the signing physician. Katherine Wray nurse practitioner acting as scribe for signing physician. Additional CC's: Serafin Juarez
[2019-08-04] MEDS: METOPROLOL SUCCINATE (ER) 25 MG TAB.ER.24H PO SCH (11:57)
--- NOTE | 2019-08-04 13:54 | CT ---
EXAMINATION TYPE: CT brain w con DATE OF EXAM: 08/04/2019 COMPARISON: None. HISTORY: Staging Sq NSCLC CT DLP: 1082.4 mGycm Automated exposure control for dose reduction was used. CONTRAST: CT scan of the head is performed with IV Contrast, patient injected with 100 mL of Isovue 300. FINDINGS: There is no midline shift identified. Diffuse ventricular and sulcal prominence. The globes are inta ct and the visualized sinuses are clear. Fairly homogeneous enhancing 1.7 x 0.7 cm right frontal mass along midline is thought to reflect meningioma. No suspicious enhancing intraparenchymal mass mass i dentified. A few small mucous retention cysts or polyps left maxillary sinus are partially imaged on the last few axial images. Soft tissue density bilateral external auditory canals is thought to refle ct cerumen. IMPRESSION: A 1.7 cm high right frontal extra-axial enhancing mass is thought to reflect meningioma. No suspicious enhancing intraparenchymal metastatic lesions clearly seen.
--- NOTE | 2019-08-04 13:55 | P.PN ---
Subjective Progress Note Date: 08/04/19 The patient is very well-known to me. He is 75. I took care of him approximately 1-1/2 years ago for a new onset left-sided pleural effusion. The fluid was drained on multiple occasions. Ultimately needed a Pleurx catheter and the fluid recovered and the catheter was removed. He did great. The fluid cytology on 2 separate occasions came back negative. The CAT scan of the chest back then did not show any evidence of malignancy. Nevertheless, especially over the past 2 months, the patient is experiencing some increased shortness of breath and pain across left lateral chest area. He was seen in the emergency recently and he was found to have a left basilar infiltrate/opacity along the left lateral chest border.. The patient is having night sweats. The patient is having a dry cough. No weight loss. Appetite is good. No documented fever. No nausea. No vomiting. He is feeling constipated. He was having also increase urinary frequency and he was placed on Flomax which improved his urine output. As mentioned, the chest x- ray showed left pleural thickening along the left lateral chest border. There is also a left-sided effusion which is very small at this point in time. He has a pacemaker in place. No syncope. He has served in the [employer] and there is some exposure to asbestos. Based on that, I ordered a computed tomography scan of the chest that shows significant abnormalities including There is new abnormal nodular thickening of the left hemithorax pleural surface seen diffusely. Masslike areas are most pronounced on series 3 image 33 along the mediastinal border appearing to have mediastinal invasion. The most anterior measures 6.4 x 4.1 cm and invading into the mediastinum below the left main pulmonary artery there is a second mass measuring 5.0 x 5.0 cm. Other nodular masslike densities are seen along the pleural surface. Another one of the largest abutting the pericardial surface is seen in the anterior left midlung measuring at least 7.6 x 4.1 cm on image 43. No calcifications are seen. Density of these masses are slightly greater than fluid. There is left hemithorax volume loss. Visualized portions of the left lung demonstrates few blebs and scattered areas of atelectasis. In the right lower lobe there is a 7 x 8 mm pulmonary nodule. A percutaneous needle biopsy of the lung through interventional radiology and further diagnosis of malignant mesothelioma. His other comorbidities include hypertension, hypothyroidism, atrial fibrillation and he has a pacemaker for complete AV block. Currently is moving around difficulty. He is developing progressive edema in lower extremities bilaterally. He is weak. His performance and functional status is progressively getting worse. He has chest wall pain and this is in the order of 4/10 The patient was supposed to be seen by medical oncology and radiation oncology. Meanwhile, became progressively more short of breath. He developed lower extremity edema. He came into the emergency department this evening having inc reased shortness of breath and he was immediately given IV Solu-Medrol and IV Lasix and subsequently improved. He is currently on oxygen at 4 L. He is feeling better. His chest x-ray showedPatchy perihilar and bilateral basilar infiltrates and a left-sided pleural effusion that was essentially unchanged and the blood work showed a white cell count 10.5 with hemoglobin of 13.4. The BNP was in the 3500 range and the patient's arrest electrodes are all within normal limits. He is being admitted to the medical floor for now. He is quite tired and fatigued and debilitated. He is also quite anxious. No chest pain. He is on long-term anticoagulation with Eliquis regarding atrial fibrillation. His EKG showing a paced rhythm with a bundle-branch block pattern. On 08/03/2019 the patient is still short of breath. He is being diuresed IV Lasix. Echocardiogram was done and echo showed a ejection fraction of 40-45% and there was mild to moderate impairment of the LV function, there was anteroseptal hypokinesis, RV size and function was within normal limits, moderate degree of pulmonary hypertension with a PA pressure of 48. I'll a was severely dilated and there was mild aortic stenosis. The CAT scan of the abdomen showed that the patient has developed a right-sided pleural effusion along with compressive atelectasis in the right lung base. There was extensive pleural disease/malignancy along the left lung and a small pericardial effusion was also present. There was small amount of ascites adjacent to the liver. No other intra-abdominal abnormalities noted other than some fecal stasis and the patient did have a bowel movement today. Awaiting oncology evaluation. Mean while, the patient is on oxygen 3 L and the pulse ox 98% and the patient is afebrile for now. On today's evaluation of 08/04/2019 the patient's feeding less short of breath compared to yesterday. Doing better. His lower extremity edema is improved and the patient is being ALLERGIES IV Lasix. No cough or sputum production. Chest pain is under good control for now. The patient is going to have a CAT scan of the brain and a PET scan is also to follow for metastatic workup. No fever. No chills. No other complaints otherwise for now. The patient was also seen by oncology. Objective - Vital Signs Vital signs: Vital Signs Temp 98.3 F 08/04/19 09:31 Pulse 68 08/04/19 11:19 Resp 18 08/04/19 12:00 BP 178/89 08/04/19 09:31 Pulse Ox 93 L 08/04/19 09:31 Intake & Output 08/03/19 08/04/19 08/04/19 18:59 06:59 18:59 Intake Total 1662 180 Output Total 0 1050 550 Balance 1662 -1050 -370 Weight 103.5 kg Intake: Oral 1662 180 Output: Urine 0 1050 550 Other: Voiding Method Urinal Urinal Urinal # Voids 0 3 1 # Bowel Movements 1 - Exam Appearance in mild degree of respiratory distress, able to speak sentences for now. Head exam was generally normal. There was no scleral icterus or corneal arcus. Mucous membranes were moist. Neck was supple and without jugular venous distension, thyromegaly, or carotid bruits. Carotids were easily palpable bilaterally. There was no adenopathy. Lungs sounds are diminished bilaterally especially in the left lung base and there is some bilateral basilar crackles Heart sounds are regular, positive S1-S2 and there is a faint grade 3/6 systolic ejection murmur left lateral sternal border. Abdominal exam revealed normal bowel sounds. The abdomen was soft, non-tender, and without masses, organomegaly, or appreciable enlargement of the abdominal aorta. Examination of the extremities revealed easily palpable radial, femoral and pedal pulses. There was no cyanosis, clubbing and the patient is +1-2 pitting edema lower extremities bilaterally Examination of the skin revealed no evidence of significant rashes, suspicious appearing nevi or other concerning lesions. Neurologically awake and alert and there is no focal neurological deficit. - Labs CBC & Chem 7: 08/04/19 05:58 08/04/19 05:58 Labs: Abnormal Lab Results - Last 24 Hours (Table) 08/03/19 08/03/19 08/04/19 Range/Units 17:52 20:47 05:54 WBC (3.8-10.6) k/uL Hgb (13.0-17.5) gm/dL MCH (25.0-35.0) pg MCHC (31.0-37.0) g/dL Sodium (137-145) mmol/L Potassium (3.5-5.1) mmol/L Chloride (98-107) mmol/L Carbon Dioxide (22-30) mmol/L BUN (9-20) mg/dL Glucose (74-99) mg/dL POC Glucose (mg/dL) 148 H 167 H 153 H (75-99) mg/dL 08/04/19 08/04/19 08/04/19 Range/Units 05:58 05:58 11:27 WBC 13.0 H (3.8-10.6) k/uL Hgb 12.9 L (13.0-17.5) gm/dL MCH 23.9 L (25.0-35.0) pg MCHC 29.9 L (31.0-37.0) g/dL Sodium 134 L (137-145) mmol/L Potassium 5.3 H (3.5-5.1) mmol/L Chloride 93 L (98-107) mmol/L Carbon Dioxide 35 H (22-30) mmol/L BUN 43 H (9-20) mg/dL Glucose 122 H (74-99) mg/dL POC Glucose (mg/dL) 153 H (75-99) mg/dL Microbiology - Last 24 Hours (Table) 08/02/19 14:12 Blood Culture - Preliminary Blood No Growth after 24 hours Assessment and Plan Plan: 1 malignant mesothelioma of pleura Unfortunately is getting worse gradually and his performance and functional status is gotten worse with increased lower extremity edema and increased shortness of breath with limited amount of activity. Is also experiencing pain in the left chest. Pain is under adequate control for now. 2 acute hypoxic respiratory failure secondary to above 3 COPD 4 hypertension 5 hypothyroidism 6 history of atrial fibrillation and dilated with Eliquis. The patient's cardiac rhythm is paced for now 7 hyperlipidemia 8 history of complete AV block and the patient has a pacemaker in place 9 history of generalized anxiety disorder 10 past additional symptoms including diminished appetite and weight loss or related to underlying malignancy. 11 CHF with an EF of around 40-45% 12 right-sided pleural effusion, rule out secondary to CHF. Rule out secondary to mesothelioma as this can be an early manifestation of mesothelioma involving the right pleural surface Plan Continue the diuresis. CAT scan of the brain. Outpatient PET scan. Oncology follow-up. Overall performance and functional status is poor. Not sure if the patient can handle any treatment. We'll discuss with oncology.
[2019-08-04 16:36] LABS: Glucose,Whole Blood 226 mg/dL (75-99)
[2019-08-04] MEDS: FUROSEMIDE 10 MG/ML 10 ML VIAL IV SCH (17:04)
[2019-08-04] MEDS: ATORVASTATIN 10 MG TAB PO SCH (17:04)
[2019-08-04 20:49] LABS: Glucose,Whole Blood 150 mg/dL (75-99)
--- NOTE | 2019-08-04 21:33 | P.PN ---
Subjective Progress Note Date: 08/04/19 Principal diagnosis: Mister Islas is a very pleasant 74-year-old male patient of Dr. Nobles in June for the past 2 years patient has had pulmonary problems arise. Patient has a history of pleural effusion, with thoracentesis last year, Pleurx catheter, new abnormal nodular thickening of the left hemithorax pleural surface seen diffusely. Masslike areas are most pronounced on series 3 image 33 along the mediastinal border appearing to have mediastinal invasion. The most anterior measures 6.4 x 4.1 cm and invading into the mediastinum below the left main pulmonary artery there is a second mass measuring 5.0 x 5.0 cm. Other nodular masslike densities are seen along the pleural surface. Another one of the largest abutting the pericardial surface is seen in the anterior left midlung measuring at least 7.6 x 4.1 cm on image 43. No calcifications are seen. Density of these masses are slightly greater than fluid. There is left hemithorax volume loss. Visualized portions of the left lung demonstrates few blebs and scattered areas of atelectasis. In the right lower lobe there is a 7 x 8 mm pulmonary nodule. A percutaneous needle biopsy of the lung through interventional radiology and further diagnosis of malignant mesothelioma. shortness of breath and he was immediately given IV Solu-Medrol and IV Lasix and subsequently improved. He is currently on oxygen at 4 L. . Awaiting oncology evaluation. Meanwhile, the patient is on oxygen 3 L and the pulse ox 98% and the patient is afebrile for now. patient continues to have shortness of breath, has been evaluated by pulmonary, has effusions. Objective - Vital Signs Vital signs: Vital Signs Temp 97.2 F L 08/04/19 20:00 Pulse 68 08/04/19 20:05 Resp 17 08/04/19 20:00 BP 143/76 08/04/19 20:00 Pulse Ox 93 L 08/04/19 20:00 Intake & Output 08/04/19 08/04/19 08/05/19 06:59 18:59 06:59 Intake Total 380 Output Total 1050 950 Balance -1050 -570 Weight 103.5 kg Intake: Oral 380 Output: Urine 1050 950 Other: Voiding Method Urinal Urinal Urinal # Voids 3 2 1 # Bowel Movements 1 3 1 - Exam The patient appeared well nourished and normally developed. Vital signs as documented. Head exam is unremarkable. No scleral icterus or corneal arcus noted. Neck is without jugular venous distension, thyromegaly, or carotid bruits. Carotid upstrokes are brisk bilaterally. Lungs are clear to auscultation and percussion. Cardiac exam reveals the PMI to be normally sized and situated. Rhythm is regular. First and second heart sounds normal. No murmurs, rubs or gallops. Abdominal exam reveals normal bowel sounds, no masses, no organomegaly and no aortic enlargement. Extremities are nonedematous and both femoral and pedal pulses are normal. - Labs CBC & Chem 7: 08/04/19 05:58 08/04/19 05:58 Labs: Abnormal Lab Results - Last 24 Hours (Table) 08/04/19 08/04/19 08/04/19 Range/Units 05:54 05:58 05:58 WBC 13.0 H (3.8-10.6) k/uL Hgb 12.9 L (13.0-17.5) gm/dL MCH 23.9 L (25.0-35.0) pg MCHC 29.9 L (31.0-37.0) g/dL Sodium 134 L (137-145) mmol/L Potassium 5.3 H (3.5-5.1) mmol/L Chloride 93 L (98-107) mmol/L Carbon Dioxide 35 H (22-30) mmol/L BUN 43 H (9-20) mg/dL Glucose 122 H (74-99) mg/dL POC Glucose (mg/dL) 153 H (75-99) mg/dL 08/04/19 08/04/19 08/04/19 Range/Units 11:27 16:33 20:48 WBC (3.8-10.6) k/uL Hgb (13.0-17.5) gm/dL MCH (25.0-35.0) pg MCHC (31.0-37.0) g/dL Sodium (137-145) mmol/L Potassium (3.5-5.1) mmol/L Chloride (98-107) mmol/L Carbon Dioxide (22-30) mmol/L BUN (9-20) mg/dL Glucose (74-99) mg/dL POC Glucose (mg/dL) 153 H 226 H 150 H (75-99) mg/dL Microbiology - Last 24 Hours (Table) 08/02/19 14:12 Blood Culture - Preliminary Blood No Growth after 48 hours - Imaging and Cardiology CT scan - abdomen: report reviewed CT scan - chest: report reviewed Assessment and Plan Plan: 1. Malignant mesothelioma undergoing staging workup: -Had an extensive discussion with the patient regarding staging workup which would involve MRI of the brain and a PET scan - most of the times depending on the stage mesothelioma is treated with upfront neoadjuvant carboplatinum or cis-pechanga with pemetrexed. the patient's ECOG performance is very poor and might not be even a candidate. In metastatic setting is carboplatin with pemetrexed with bevacizumab was used. - in metastatic setting is relatively immunotherapy with pembrolizumab can be used as well. - Explained this to the family. Waiting for a PET scan which is scheduled for Thursday however patient is admitted and will have today later next week. - Outpatient PET scan. Follow-up appointment to see Dr. Haq next Thursday for treatment plan. 2 Respiratory distress, COPD, acute hypoxic respiratory failure secondary to sincerely: - Right-sided pleural effusion which could be malignant versus CHF as well. Drainage as needed to support her breathing. 3 Other medical problems include, hypothyroidism,hypertension, atrial fibrillation, hyperlipidemia, arrhythmias, anxiety disorder, CHF with an EF of around 40-45% 12 right-sided pleural effusion, rule out secondary to CHF. Rule out secondary to mesothelioma as this can be an early manifestation of mesothelioma involving the right pleural surface Thank you for allowing me to participate in the care of your patient. Keith Leonard MD [employer], [facility] Hematology Oncology [id number], [address] [place] [address] Office: [phone] Time with Patient: Greater than 30
[2019-08-05] MEDS: FUROSEMIDE 10 MG/ML 10 ML VIAL IV SCH (05:09)
[2019-08-05] MEDS: methylPREDNISolone SOD SUCCI 125 MG/2 ML VIAL IV SCH (05:10)
[2019-08-05] MEDS: LEVOTHYROXINE 25 MCG TAB PO SCH (05:10)
[2019-08-05] MEDS: INSULIN ASPART (NovoLOG) 100 UNIT/ML VIAL SQ SCH (06:20)
[2019-08-05 06:40] LABS: Glucose,Whole Blood 123 mg/dL (75-99)
[2019-08-05] MEDS: IPRATROPIUM-ALBUTEROL 3 ML NEB INHALATION SCH ×5 (07:38→21:30)
[2019-08-05] MEDS: amLODIPine 5 MG TAB PO SCH (09:12)
[2019-08-05] MEDS: MULTIVITAMINS, THERA 1 EACH TAB PO SCH (09:12)
[2019-08-05] MEDS: TAMSULOSIN 0.4 MG CAP.ER.24H PO SCH (09:12)
[2019-08-05] MEDS: ASPIRIN 81 MG PO SCH (09:12)
[2019-08-05] MEDS: METOPROLOL SUCCINATE (ER) 25 MG TAB.ER.24H PO SCH (09:12)
[2019-08-05] MEDS: APIXABAN 5 MG TAB PO SCH ×2 (09:12→21:07)
--- NOTE | 2019-08-05 09:52 | XR ---
EXAMINATION TYPE: XR chest 2V DATE OF EXAM: 08/05/2019 COMPARISON: 08/02/2019 HISTORY: Shortness of breath TECHNIQUE: Frontal and lateral views of the chest are obtained. FINDINGS: Scattered senescent parenchymal changes noted. Hyperinflation compatible with COPD. Scattered pleural parenchymal density throughout both lung hunter with improving aeration left lung b ase. Heart size is stable. Mediastinal structures are stable and grossly unremarkable. No evidence for hilar prominence. Degenerative changes dorsal spine. IMPRESSION: 1. Scattered pleural parenchymal density throughout both lung hunter with improving aeration left kendy g base.
[2019-08-05 09:53] LABS: HCT 42.5 % (39.0-53.0); HGB 13.1 gm/dL (13.0-17.5); Hypochromasia Marked; MCH 24.7 pg (25.0-35.0); MCHC 30.9 g/dL (31.0-37.0); Mean Platelet Volume 5.9; Platelet Count 267 k/uL (150-450); RBC 5.31 m/uL (4.30-5.90); RDW 13.8 % (11.5-15.5); WBC 12.2 k/uL (3.8-10.6)
[2019-08-05 10:11] LABS: Potassium 4.8 mmol/L (3.5-5.1)
[2019-08-05 11:49] LABS: Glucose,Whole Blood 113 mg/dL (75-99)
[2019-08-05] MEDS ORDERED: amLODIPine 5 MG TAB PO STA (12:06)
--- NOTE | 2019-08-05 12:08 | P.PN ---
Subjective Progress Note Date: 08/05/19 This is a 74-year-old male patient of Dr. Juarez, Dr. 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 Patient has had extensive outpatient workup and on Thursday last week, he was diagnosed with mesothelioma. He has not had follow-up with oncology as of yet. The patient states he has been feeling ill for the past 2 weeks with decreased energy unable to walk to the mailbox, decreased urine output, chest tightness. He has also had progressively worsening dyspnea, lower extremity edema, orthop ariel. He complains of a productive cough with clear sputum. He has been using his nebulizer treatments at home without improvement. Patient also also been constipated which is new for him and he is on stool softeners and fiber pills. Patient was scheduled for outpatient stress testing with Dr. Castro next month but due to respiratory difficulties and new diagnosis, this was canceled by his daughter. Patient does not have home O2. Patient came into [facility] emergency center and found to be afebrile, heart rate 53, blood pressure 162/86, pulse ox 90% on room air. CBC was unremarkable, sodium 135, potassium 5.0, chloride 96, CO2 33, BUN 25, creatinine 0.68, blood sugar 108, lactic acid 1.2. Total bilirubin AST and ALT all normal, alkaline phosphatase 151, albumin 3.5. Troponin negative, proBNP 3580. Chest x-ray shows patchy perihilar and basilar infiltrates with left- sided effusion essentially unchanged. EKG was a paced rhythm. Patient was admitted to the cardiac unit and started on Lasix, antibiotics and consults requested with Dr. Nobles, oncology and cardiology consult requested as well. Due to ongoing constipation, a CAT scan of the abdomen and pelvis also ordered. Echocardiogram revealed EF of 40-45%, mild mitral regurgitation, mild tricuspid regurgitation, moderate pulmonary hypertension. Patient's previous echocardiogram had a normal EF. A CT of the abdomen and pelvis with contrast revealed bilateral pleural effusions. This may be loculated on the left. Additional pleural thickening could be considered in the differential of the left lung base findings. Small pericardial effusion, small amount of ascites adjacent to the liver. D iverticulosis without acute diverticulitis. Mild fecal retention. 08/04: Patient is resting in bed with family at the bedside. Patient states that he is breathing better today than yesterday. He is ambulating with a walker however due to the edema to his lower extremities he's finding that to be difficult. Patient is scheduled for a PET scan on Thursday. Patient is scheduled for a brain CT without contrast. Patient is afebrile, blood pressure 178/89, pulse ox is 93% on 3 L. Respirations are 18, heart rate 68. 08/05: Patient continues to have dyspnea but improved as well as lower extremity edema but lungs are clear to auscultation today. Patient does not have home oxygen and pulse ox dropped to 84% with activity. Prescription has been provided for home O2 and nebulizer. Patient would also benefit from hospital bed due to heart failure and need to maintain his head of the bed at 30. client integration manager will make arrangements for home oxygen and hospital bed. He remains on Lasix 60 mg IV every 12 hours which will be maintained and Solu-Medrol will be transitioned to oral prednisone. He has been seen by oncology with recommendations for outpatient PET scan to be rescheduled from Thursday and plan to start chemotherapy/immunotherapy and he has a follow-up appointment with Dr. Haq on Thursday. CAT scan of the brain did show 1.7 cm right frontal enhancing mass thought to be meningioma. No suspicious enhancing intraparenchymal metastatic lesions clearly seen. Repeat chest x-ray was ordered which revealed scattered pleural parenchymal density throughout both lung hunter with improving aeration left lung base. Patient has been afebrile, heart rate 61, blood pressure 162/87, pulse ox 98% on 3 L the patient desats with minimal activity. Repeat lab work reveals a white count of 12.2, hemoglobin 13.1, platelet count 267. Sodium 136, potassium 4.8, chloride 92, CO2 36, BUN 49 creatinine 1.22. Blood sugars run between 113 and 160. Patient does not have history of diabetes and CBGs and scale insulin will be discontinued. Patient will be transferred to the oncology unit. Anticipate discharge home tomorrow. Review of Systems Constitutional: Reports anorexia, Reports fatigue, Reports lethargy, Reports malaise, Reports poor appetite, Reports weakness, Denies chills, Denies fever Eyes: denies blurred vision, denies pain Ears, nose, mouth and throat: Denies dysphagia, Denies headache, Denies nasal congestion, Denies nasal discharge, Denies sore throat, Denies vertigo Cardiovascular: Reports chest pain, Reports dyspnea on exertion, Reports edema, Reports leg edema, Reports orthopnea, Reports shortness of breath Respiratory: Reports cough, Reports cough with sputum, Reports dyspnea, denies wheezing, Denies excessive sputum, Denies hemoptysis, Denies home oxygen Gastrointestinal: Reports constipation, Reports loss of appetite, Denies abdominal pain, Denies diarrhea, Denies nausea, Denies vomiting Genitourinary: Denies dysuria, Denies urinary frequency, Denies urinary retention Musculoskeletal: Reports muscle weakness, Denies myalgias Integumentary: Denies pruritus, Denies rash, Denies wounds Neurological: Denies change in mentation, Denies change in speech, Denies numbness, Denies seizures, Denies weakness Psychiatric: Denies anxiety, Denies depression Endocrine: Denies fatigue, Denies weight change Objective - Vital Signs Vital signs: Vital Signs Temp 97.2 F L 08/04/19 20:00 Pulse 68 08/05/19 07:47 Resp 17 08/05/19 04:00 BP 165/82 08/05/19 04:00 Pulse Ox 94 L 08/05/19 04:00 Intake & Output 08/04/19 08/05/19 08/05/19 18:59 06:59 18:59 Intake Total 380 Output Total 950 450 Balance -570 -450 Intake: Oral 380 Output: Urine 950 450 Other: Voiding Method Urinal Urinal # Voids 2 1 # Bowel Movements 3 1 - Exam Gen: This is a 74-year-old male. He is sitting upright in chair and appears in no acute respiratory distress. Patient becomes dyspneic with minimal activity. HEENT: Head is atraumatic, normocephalic. Pupils equal, round. Sclerae is ani cteric. Oral mucous membranes are moist. NECK: Supple. No JVD. No lymphadenopathy. No thyromegaly. LUNGS: Diminished bilaterally with bilateral crackles more so on the right. No intercostal retractions. HEART: Regular rate and rhythm. Systolic murmur. ABDOMEN: Soft. Bowel sounds are present. No masses. No tenderness. EXTREMITIES: 1+ bilateral pedal edema. No calf tenderness. NEUROLOGICAL: Patient is awake, alert and oriented x3. Cranial nerves 2 through 12 are grossly intact. - Labs CBC & Chem 7: 08/05/19 09:27 08/05/19 09:27 Labs: Abnormal Lab Results - Last 24 Hours (Table) 08/04/19 08/04/19 08/04/19 Range/Units 11: 16:33 20:48 POC Glucose (mg/dL) 153 H 226 H 150 H (75-99) mg/dL 08/05/19 Range/Units 06:19 POC Glucose (mg/dL) 123 H (75-99) mg/dL Microbiology - Last 24 Hours (Table) 08/02/19 14:12 Blood Culture - Preliminary Blood No Growth after 48 hours Assessment and Plan Plan: 1. Acute hypoxic respiratory failure secondary to malignant mesothelioma of the pleura and acute systolic heart failure. Consult with Dr. Giuliano charles. Consult with cardiology added. Continue DuoNeb treatments 4 times daily and every 4 hours as needed, Lasix 60 mg IV every 12 hours, Solu-Medrol transitioned to oral prednisone. Continue Toprol-XL 25 mg daily, aspirin 81 mg daily Hospital bed ordered as patient would benefit from head of the bed up at least 30 due to CHF. Home oxygen will be arranged for chronic hypoxic respiratory failure. Nebulizer treatment set up for home. Transfer to oncology unit. 2. COPD with acute exacerbation. Continue as in #1. 3. Chest pain. Cardiology consult. Repeat troponins ordered. 4. Hypertension. Continue Norvasc increased to 10 mg daily. 5. Chronic atrial fibrillation status post pacemaker for sick sinus syndrome. Continue eliquis 5 mg twice daily. 6. Constipation. CAT scan as above. Continue Colace 100 mg twice daily and Senokot as needed. 7. Hypothyroidism. Continue levothyroxine 25 g daily. 8. Benign prostatic hypertrophy. Continue Flomax. 9. GI prophylaxis. Protonix. 10. DVT prophylaxis. Eliquis 11. Hyperlipidemia. Continue atorvastatin 10 mg daily. Discharge plan: Home with [facility] in the next 24 hours. Impression and plan of care have been directed as dictated by the signing physician. Aneta Cantu nurse practitioner acting as scribe for signing physician.
[2019-08-05] MEDS ORDERED: METOPROLOL SUCCINATE (ER) 25 MG TAB.ER.24H PO STA (14:13)
--- NOTE | 2019-08-05 14:42 | PN ---
PROGRESS NOTE This is a 74-year-old gentleman with sick sinus syndrome, status post permanent pacemaker, atrial fibrillation, COPD, mesothelioma with pleural effusion, who is admitted to hospital with chest tightness, fatigue, and inability to walk. He had significant bilateral leg edema. Has been treated with intravenous diuretics with significant improvement in his symptoms. His leg edema had improved. Shortness of breath has gotten better. Chest x-ray shows less congestion. The patient has malignant mesothelioma with pleural effusion. PHYSICAL EXAM: Today, he is comfortable at rest. Vital signs are stable. Chest exam reveals diminished air entry at the bases. Heart exam reveals first and second heart sounds. No gallop. There is a systolic murmur at the apex. Abdomen is soft. Exam of the extremities reveals mild edema bilaterally. ASSESSMENT: 1. Precordial chest pain, atypical, probably related to underlying mesothelioma. 2. Congestive heart failure, improving with diuretics. I am going to switch the Lasix to p.o. 3. Uncontrolled hypertension. PLAN: I will increase the dose of Toprol-XL to 50 mg daily. MMODL / IJN: [id number] /
--- NOTE | 2019-08-05 15:38 | P.PN ---
Subjective Progress Note Date: 08/05/19 Principal diagnosis: Malignant mesothelioma of pleura The patient is very well-known to me. He is 75. I took care of him approximately 1-1/2 years ago for a new onset left-sided pleural effusion. The fluid was drained on multiple occasions. Ultimately needed a Pleurx catheter and the fluid recovered and the catheter was removed. He did great. The fluid cytology on 2 separate occasions came back negative. The CAT scan of the chest back then did not show any evidence of malignancy. Nevertheless, especially over the past 2 months, the patient is experiencing some increased shortness of breath and pain across left lateral chest area. He was seen in the emergency recently and he was found to have a left basilar infiltrate/opacity along the left lateral chest border.. The patient is having night sweats. The patient is having a dry cough. No weight loss. Appetite is good. No documented fever. No nausea. No vomiting. He is feeling constipated. He was having also increase urinary frequency and he was placed on Flomax which improved his urine output. As mentioned, the chest x- ray showed left pleural thickening along the left lateral chest border. There is also a left-sided effusion which is very small at this point in time. He has a pacemaker in place. No syncope. He has served in the [employer] and there is some exposure to asbestos. Based on that, I ordered a computed tomography scan of the chest that shows significant abnormalities including There is new abnormal nodular thickening of the left hemithorax pleural surface seen diffusely. Masslike areas are most pronounced on series 3 image 33 along the mediastinal border appearing to have mediastinal invasion. The most anterior measures 6.4 x 4.1 cm and invading into the mediastinum below the left main pulmonary artery there is a second mass measuring 5.0 x 5.0 cm. Other nodular masslike densities are seen along the pleural surface. Another one of the largest abutting the pericardial surface is seen in the anterior left midlung measuring at least 7.6 x 4.1 cm on image 43. No calcifications are seen. Density of these masses are slightly greater than fluid. There is left hemithorax volume loss. Visualized p ortions of the left lung demonstrates few blebs and scattered areas of atelectasis. In the right lower lobe there is a 7 x 8 mm pulmonary nodule. A percutaneous needle biopsy of the lung through interventional radiology and further diagnosis of malignant mesothelioma. His other comorbidities include hypertension, hypothyroidism, atrial fibrillation and he has a pacemaker for complete AV block. Currently is moving around difficulty. He is developing progressive edema in lower extremities bilaterally. He is weak. His performance and functional status is progressively getting worse. He has chest wall pain and this is in the order of 4/10 The patient was supposed to be seen by medical oncology and radiation oncology. Meanwhile, became progressively more short of breath. He developed lower extremity edema. He came into the emergency department this evening having increased shortness of breath and he was immediately given IV Solu-Medrol and IV Lasix and subsequently improved. He is currently on oxygen at 4 L. He is feeling better. His chest x-ray showedPatchy perihilar and bilateral basilar infiltrates and a left-sided pleural effusion that was essentially unchanged and the blood work showed a white cell count 10.5 with hemoglobin of 13.4. The BNP was in the 3500 range and the patient's arrest electrodes are all within normal limits. He is being admitted to the medical floor for now. He is quite tired and fatigued and debilitated. He is also quite anxious. No chest pain. He is on long-term anticoagulation with Eliquis regarding atrial fibrillation. His EKG showing a paced rhythm with a bundle-branch block pattern. On 08/03/2019 the patient is still short of breath. He is being diuresed IV Lasix. Echocardiogram was done and echo showed a ejection fraction of 40-45% and there was mild to moderate impairment of the LV function, there was anteroseptal hypokinesis, RV size and function was within normal limits, moderate degree of pulmonary hypertension with a PA pressure of 48. I'll a was severely dilated and there was mild aortic stenosis. The CAT scan of the abdomen showed that the patient has developed a right-sided pleural effusion along with compressive atelectasis in the right lung base. There was extensive pleural disease/malignancy along the left lung and a small pericardial effusion was also present. There was small amount of ascites adjacent to the liver. No other intra-abdominal abnormalities noted other than some fecal stasis and the patient did have a bowel movement today. Awaiting oncology evaluation. Meanwhile, the patient is on oxygen 3 L and the pulse ox 98% and the patient is afebrile for now. On today's evaluation of 08/04/2019 the patient's feeding less short of breath compared to yesterday. Doing better. His lower extremity edema is improved and the patient is being ALLERGIES IV Lasix. No cough or sputum production. Chest pain is under good control for now. The patient is going to have a CAT scan of the brain and a PET scan is also to follow for metastatic workup. No fever. No chills. No other complaints otherwise for now. The patient was also seen by oncology. On 08/05/2019 patient seen in follow-up on selective care unit, she sits up in the chair, he is in no acute distress. Doing better, breathing easier, still has exertional dyspnea, he does qualify for home oxygen, was desaturating down to 84% with ambulation. Fairly comfortable at rest right now, no plans of chest pain, there have been no fever or chills. Lung sounds reveal crackles at bilateral bases, lower extremity edema still there but improving, he is in negative fluid balance, he was given a dose of IV Lasix yesterday, and started on oral diuretic dose of 60 mg twice daily, cardiology is following.is following. On oral prednisone and breathing treatments as well. Objective - Vital Signs Vital signs: Vital Signs Temp 97.6 F 08/05/19 09:00 Pulse 61 08/05/19 11:34 Resp 18 08/05/19 09:00 BP 162/87 08/05/19 09:00 Pulse Ox 92 L 08/05/19 11:34 Intake & Output 08/04/19 08/05/19 08/05/19 18:59 06:59 18:59 Intake Total 380 530 Output Total 950 450 Balance -570 -450 530 Weight 116.2 kg Intake: IV 10 Invasive Line 1 10 Oral 380 520 Output: Urine 950 450 Other: Voiding Method Urinal Urinal Urinal # Voids 2 1 # Bowel Movements 3 1 - Exam GENERAL EXAM: Alert, pleasant, 74-year-old white male, on 3 L of oxygen, comfortable in no apparent distress. HEAD: Normocephalic/atraumatic. EYES: Normal reaction of pupils, equal size. Conjunctiva pink, sclera white. NOSE: Clear with pink turbinates. THROAT: No erythema or exudates. NECK: No masses, no JVD, no thyroid enlargement, no adenopathy. CHEST: No chest wall deformity. Symmetrical expansion. LUNGS: Equal air entry with bibasilar crackles, but no wheeze, rhonchi or dul lness. CVS: Regular rate and rhythm, normal S1 and S2, no gallops, no murmurs, no rubs ABDOMEN: Soft, nontender. No hepatosplenomegaly, normal bowel sounds, no guarding or rigidity. EXTREMITIES: No clubbing,1+ edema, no cyanosis, 2+ pulses and upper and lower extremities. MUSCULOSKELETAL: Muscle strength and tone normal. SPINE: No scoliosis or deformity SKIN: No rashes CENTRAL NERVOUS SYSTEM: Alert and oriented -3. No focal deficits, tone is normal in all 4 extremities. PSYCHIATRIC: Alert and oriented -3. Appropriate affect. Intact judgment and insight. - Labs CBC & Chem 7: 08/05/19 09:27 08/05/19 09:27 Labs: Abnormal Lab Results - Last 24 Hours (Table) 08/04/19 08/04/19 08/05/19 Range/Units 16:33 20:48 06:19 WBC (3.8-10.6) k/uL MCH (25.0-35.0) pg MCHC (31.0-37.0) g/dL Sodium (137-145) mmol/L Chloride (98-107) mmol/L Carbon Dioxide (22-30) mmol/L BUN (9-20) mg/dL Glucose (74-99) mg/dL POC Glucose (mg/dL) 226 H 150 H 123 H (75-99) mg/dL 08/05/19 08/05/19 08/05/19 Range/Units 09:27 09:27 11:48 WBC 12.2 H (3.8-10.6) k/uL MCH 24.7 L (25.0-35.0) pg MCHC 30.9 L (31.0-37.0) g/dL Sodium 136 L (137-145) mmol/L Chloride 92 L (98-107) mmol/L Carbon Dioxide 36 H (22-30) mmol/L BUN 49 H (9-20) mg/dL Glucose 160 H (74-99) mg/dL POC Glucose (mg/dL) 113 H (75-99) mg/dL Microbiology - Last 24 Hours (Table) 08/02/19 14:12 Blood Culture - Preliminary Blood No Growth after 48 hours Assessment and Plan Plan: Assessment: 1 malignant mesothelioma of pleura Unfortunately is getting worse gradually and his performance and functional status is gotten worse with increased lower extremity edema and increased shortness of breath with limited amount of activity. Is also experiencing pain in the left chest. Pain is under adequate control for now. 2 acute hypoxic respiratory failure secondary to above 3 COPD 4 hypertension 5 hypothyroidism 6 history of atrial fibrillation and dilated with Eliquis. The patient's cardiac rhythm is paced for now 7 hyperlipidemia 8 history of complete AV block and the patient has a pacemaker in place 9 history of generalized anxiety disorder 10 past additional symptoms including diminished appetite and weight loss or related to underlying malignancy. 11 CHF with an EF of around 40-45% 12 right-sided pleural effusion, rule out secondary to CHF. Rule out secondary to mesothelioma as this can be an early manifestation of mesothelioma involving the right pleural surface Plan: Continue oral diuretics, patient is breathing easier, he is in negative fluid balance, lower extremity edema has slightly improved, patient does qualify for home oxygen, he is anticipated to be discharged home tomorrow, patient will have outpatient PET scan, and oncology follow-up. We will see the patient in the outpatient follow-up with Dr. Nobles in 2 weeks I performed a history & physical examination of the patient and discussed their management with my nurse practitioner, Tasha Tello. I reviewed the nurse practitioner's note and agree with the documented findings and plan of care. Lung sounds are positive for basilar crackles. The findings and the impression was discussed with the patient. I attest to the documentation by the nurse practitioner. Time with Patient: Less than 30
[2019-08-05] MEDS: FUROSEMIDE 20 MG TAB PO SCH (16:50)
[2019-08-05] MEDS: ATORVASTATIN 10 MG TAB PO SCH (16:50)
--- NOTE | 2019-08-05 20:04 | P.PN ---
Subjective Progress Note Date: 08/05/19 Principal diagnosis: Mister Islas is a very pleasant 74-year-old male patient of Dr. Nobles in June for the past 2 years patient has had pulmonary problems arise. Patient has a history of pleural effusion, with thoracentesis last year, Pleurx catheter, new abnormal nodular thickening of the left hemithorax pleural surface seen diffusely. Masslike areas are most pronounced on series 3 image 33 along the mediastinal border appearing to have mediastinal invasion. The most anterior measures 6.4 x 4.1 cm and invading into the mediastinum below the left main pulmonary artery there is a second mass measuring 5.0 x 5.0 cm. Other nodular masslike densities are seen along the pleural surface. Another one of the largest abutting the pericardial surface is seen in the anterior left midlung measuring at least 7.6 x 4.1 cm on image 43. No calcifications are seen. Density of these masses are slightly greater than fluid. There is left hemithorax volume loss. Visualized portions of the left lung demonstrates few blebs and scattered areas of atelectasis. In the right lower lobe there is a 7 x 8 mm pulmonary nodule. A percutaneous needle biopsy of the lung through interventional radiology and further diagnosis of malignant mesothelioma. shortness of breath and he was immediately given IV Solu-Medrol and IV Lasix and subsequently improved. He is currently on oxygen at 4 L. . Awaiting oncology evaluation. Meanwhile, the patient is on oxygen 3 L and the pulse ox 98% and the patient is afebrile for now. patient continues to have shortness of breath, has been evaluated by pulmonary, has effusions. Objective - Vital Signs Vital signs: Vital Signs Temp 97.6 F 08/05/19 15:00 Pulse 86 08/05/19 16:29 Resp 18 08/05/19 16:00 BP 143/74 08/05/19 15:00 Pulse Ox 96 08/05/19 16:21 Intake & Output 08/05/19 08/05/19 08/06/19 06:59 18:59 06:59 Intake Total 1420 Output Total 450 450 Balance -450 970 Weight 116.2 kg Intake: IV 40 Invasive Line 1 20 Invasive Line 2 20 Oral 1380 Output: Urine 450 450 Other: Voiding Method Urinal Urinal # Voids 1 # Bowel Movements 1 - Exam The patient appeared well nourished and normally developed. Vital signs as documented. Head exam is unremarkable. No scleral icterus or corneal arcus noted. Neck is without jugular venous distension, thyromegaly, or carotid bruits. Carotid upstrokes are brisk bilaterally. Lungs are clear to auscultation and percussion. Cardiac exam reveals the PMI to be normally sized and situated. Rhythm is regular. First and second heart sounds normal. No murmurs, rubs or gal lops. Abdominal exam reveals normal bowel sounds, no masses, no organomegaly and no aortic enlargement. Extremities are nonedematous and both femoral and pedal pulses are normal. - Labs CBC & Chem 7: 08/05/19 09:27 08/05/19 09:27 Labs: Abnormal Lab Results - Last 24 Hours (Table) 08/04/19 08/05/19 08/05/19 Range/Units 20:48 06:19 09:27 WBC 12.2 H (3.8-10.6) k/uL MCH 24.7 L (25.0-35.0) pg MCHC 30.9 L (31.0-37.0) g/dL Sodium (137-145) mmol/L Chloride (98-107) mmol/L Carbon Dioxide (22-30) mmol/L BUN (9-20) mg/dL Glucose (74-99) mg/dL POC Glucose (mg/dL) 150 H 123 H (75-99) mg/dL 08/05/19 08/05/19 Range/Units 09:27 11:48 WBC (3.8-10.6) k/uL MCH (25.0-35.0) pg MCHC (31.0-37.0) g/dL Sodium 136 L (137-145) mmol/L Chloride 92 L (98-107) mmol/L Carbon Dioxide 36 H (22-30) mmol/L BUN 49 H (9-20) mg/dL Glucose 160 H (74-99) mg/dL POC Glucose (mg/dL) 113 H (75-99) mg/dL Microbiology - Last 24 Hours (Table) 08/02/19 14:12 Blood Culture - Preliminary Blood No Growth after 72 hours Assessment and Plan Plan: 1. Malignant mesothelioma undergoing staging workup: -Had an extensive discussion with the patient regarding staging workup which would involve MRI of the brain and a PET scan - most of the times depending on the stage mesothelioma is treated with upfront neoadjuvant carboplatinum or cis-[place] with pemetrexed. the patient's ECOG performance is very poor and might not be even a candidate. In metastatic setting is carboplatin with pemetrexed with bevacizumab was used. - in metastatic setting is relatively immunotherapy with pembrolizumab can be used as well. - Explained this to the family. Waiting for a PET scan which is scheduled for Thursday however patient is admitted and will have today later next week. - Outpatient PET scan. Follow-up appointment to see Dr. Haq next Thursday for treatment plan. 2 Respiratory distress, COPD, acute hypoxic respiratory failure secondary to sincerely: - Right-sided pleural effusion which could be malignant versus CHF as well. Drainage as needed to support her breathing. 3 Other medical problems include, hypothyroidism,hypertension, atrial fibrillation, hyperlipidemia, arrhythmias, anxiety disorder, CHF with an EF of around 40-45% 12 right-sided pleural effusion, rule out secondary to CHF. Rule out secondary to mesothelioma as this can be an early manifestation of mesothelioma involving the right pleural surface Thank you for allowing me to participate in the care of your patient. Keith Leonard MD [employer] Sales Associate, [facility] Hematology Oncology [id number], [address] [place] [address] Office: [phone] Time with Patient: Greater than 30
[2019-08-06] MEDS: LEVOTHYROXINE 25 MCG TAB PO SCH (05:16)
[2019-08-06] MEDS: IPRATROPIUM-ALBUTEROL 3 ML NEB INHALATION SCH ×3 (08:34→16:46)
[2019-08-06] MEDS: TAMSULOSIN 0.4 MG CAP.ER.24H PO SCH (08:42)
[2019-08-06] MEDS: ASPIRIN 81 MG PO SCH (08:42)
[2019-08-06] MEDS: FUROSEMIDE 20 MG TAB PO SCH (08:42)
[2019-08-06] MEDS: MULTIVITAMINS, THERA 1 EACH TAB PO SCH (08:42)
[2019-08-06] MEDS: APIXABAN 5 MG TAB PO SCH (08:42)
[2019-08-06 08:56] VITALS: RESP 14
[2019-08-06] MEDS ORDERED: amLODIPine 10 MG TAB PO SCH (09:00)
[2019-08-06] MEDS ORDERED: predniSONE 20 MG TAB PO SCH (09:00)
[2019-08-06] MEDS ORDERED: METOPROLOL SUCCINATE (ER) 50 MG TAB.ER.24H PO SCH (09:00)
[2019-08-06 11:48] VITALS: BP 167/96; PULSE 60; TEMP 97.3
--- NOTE | 2019-08-06 14:15 | P.PN ---
Subjective Progress Note Date: 08/06/19 Principal diagnosis: Atypical chest pain This is a pleasant 74-year-old gentleman with a past medical history significant for mild cardiomyopathy was EF around 45%, mild aortic stenosis, hypertension, was admitted to the hospital with uncontrolled blood pressure as well as heart failure related to systolic dysfunction. The patient was seen this morning. 08/06/2019. He still have quite significant bilateral lower except his edema but he is insisting on going home. Having said that, he is going to be discharged on oral diuretics. He was advised about the importance of sticking to the diuretics as well as avoiding any salt intake and also to stay active. He denies any symptoms of chest pain or chest discomfort at this point. Objective - Vital Signs Vital signs: Vital Signs Temp 97.3 F L 08/06/19 11:45 Pulse 60 08/06/19 12:19 Resp 14 08/06/19 11:45 BP 167/96 08/06/19 11:45 Pulse Ox 95 08/06/19 11:45 Intake & Output 08/05/19 08/06/19 08/06/19 18:59 06:59 18:59 Intake Total 1420 Output Total 450 Balance 970 Weight 116.2 kg Intake: IV 40 Invasive Line 1 20 Invasive Line 2 20 Oral 1380 Output: Urine 450 Other: Voiding Method Urinal Urinal Urinal # Voids 3 - Constitutional General appearance: Present: no acute distress - Respiratory Respiratory: bilateral: diminished - Cardiovascular Rhythm: regular Heart sounds: normal: S1, S2 Abnormal Heart Sounds: Present: systolic murmur - Labs CBC & Chem 7: 08/05/19 09:27 08/05/19 09:27 Labs: Microbiology - Last 24 Hours (Table) 08/02/19 14:12 Blood Culture - Preliminary Blood No Growth after 72 hours Assessment and Plan Assessment: Assessment #1 atypical chest discomfort which has resolved #2 congestive heart failure exacerbation secondary to systolic dysfunction #3 hypertension Plan #1 the patient is being discharged home #2 he was advised about taking his diuretics as well as being compliant with the diet
--- NOTE | 2019-08-06 14:23 | P.PN ---
Subjective Progress Note Date: 08/06/19 On today's evaluation of 08/06/2019 the patient is still having some lower extremity edema although overall it is improved. He is on Lasix 60 mg by mouth twice a day. His bili go home today on oxygen at 2 L per minute nasal cannula. He has shortness of breath. He has malignant mesothelioma. The patient is going to have an outpatient PET scan for further consideration of treatment. He will need oncology, Dr. Haq Objective - Vital Signs Vital signs: Vital Signs Temp 97.3 F L 08/06/19 11:45 Pulse 60 08/06/19 12:19 Resp 14 08/06/19 11:45 BP 167/96 08/06/19 11:45 Pulse Ox 95 08/06/19 11:45 Intake & Output 08/05/19 08/06/19 08/06/19 18:59 06:59 18:59 Intake Total 1420 Output Total 450 Balance 970 Weight 116.2 kg Intake: IV 40 Invasive Line 1 20 Invasive Line 2 20 Oral 1380 Output: Urine 450 Other: Voiding Method Urinal Urinal Urinal # Voids 3 - Exam Appearance in mild degree of respiratory distress, able to speak sentences for now. Head exam was generally normal. There was no scleral icterus or corneal arcus. Mucous membranes were moist. Neck was supple and without jugular venous distension, thyromegaly, or carotid bruits. Carotids were easily palpable bilaterally. There was no adenopathy. Lungs sounds are diminished bilaterally especially in the left lung base and there is some bilateral basilar crackles Heart sounds are regular, positive S1-S2 and there is a faint grade 3/6 systolic ejection murmur left lateral sternal border. Abdominal exam revealed normal bowel sounds. The abdomen was soft, non-tender, and without masses, organomegaly, or appreciable enlargement of the abdominal aorta. Examination of the extremities revealed easily palpable radial, femoral and pedal pulses. There was no cyanosis, clubbing and the patient is +1-2 pitting edema lower extremities bilaterally Examination of the skin revealed no evidence of significant rashes, suspicious appearing nevi or other concerning lesions. Neurologically awake and alert and there is no focal neurological deficit. - Labs CBC & Chem 7: 08/05/19 09:27 08/05/19 09:27 Labs: Microbiology - Last 24 Hours (Table) 08/02/19 14:12 Blood Culture - Preliminary Blood No Growth after 72 hours Assessment and Plan Plan: 1 malignant mesothelioma of pleura Unfortunately is getting worse gradually and his performance and functional status is gotten worse with increased lower extremity edema and increased shortness of breath with limited amount of activity. Is also experiencing pain in the left chest. Pain is under adequate control for now. 2 acute hypoxic respiratory failure secondary to above 3 COPD 4 hypertension 5 hypothyroidism 6 history of atrial fibrillation and dilated with Eliquis. The patient's cardiac rhythm is paced for now 7 hyperlipidemia 8 history of complete AV block and the patient has a pacemaker in place 9 history of generalized anxiety disorder 10 past additional symptoms including diminished appetite and weight loss or related to underlying malignancy. 11 CHF with an EF of around 40-45% 12 right-sided pleural effusion, rule out secondary to CHF. Rule out secondary to mesothelioma as this can be an early manifestation of mesothelioma involving the right pleural surface Plan Continue the diuresis. He has been switched to oral Lasix. Discharge planning is in progress. Outpatient PET scan. We'll follow in the office.
--- NOTE | 2019-08-06 18:42 | P.PN ---
Subjective Progress Note Date: 08/06/19 Principal diagnosis: Mister Islas is a very pleasant 74-year-old male patient of Dr. Nobles in June for the past 2 years patient has had pulmonary problems arise. Patient has a history of pleural effusion, with thoracentesis last year, Pleurx catheter, new abnormal nodular thickening of the left hemithorax pleural surface seen diffusely. Masslike areas are most pronounced on series 3 image 33 along the mediastinal border appearing to have mediastinal invasion. The most anterior measures 6.4 x 4.1 cm and invading into the mediastinum below the left main pulmonary artery there is a second mass measuring 5.0 x 5.0 cm. Other nodular masslike densities are seen along the pleural surface. Another one of the largest abutting the pericardial surface is seen in the anterior left midlung measuring at least 7.6 x 4.1 cm on image 43. No calcifications are seen. Density of these masses are slightly greater than fluid. There is left hemithorax volume loss. Visualized portions of the left lung demonstrates few blebs and scattered areas of atelectasis. In the right lower lobe there is a 7 x 8 mm pulmonary nodule. A percutaneous needle biopsy of the lung through interventional radiology and further diagnosis of malignant mesothelioma. shortness of breath and he was immediately given IV Solu-Medrol and IV Lasix and subsequently improved. He is currently on oxygen at 4 L. . Awaiting oncology evaluation. Meanwhile, the patient is on oxygen 3 L and the pulse ox 98% and the patient is afebrile for now. patient continues to have shortness of breath, has been evaluated by pulmonary, has effusions. Objective - Vital Signs Vital signs: Vital Signs Temp 97.3 F L 08/06/19 11:45 Pulse 60 08/06/19 12:19 Resp 14 08/06/19 11:45 BP 167/96 08/06/19 11:45 Pulse Ox 95 08/06/19 11:45 Intake & Output 08/05/19 08/06/19 08/06/19 18:59 06:59 18:59 Intake Total 1420 Output Total 450 Balance 970 Weight 116.2 kg Intake: IV 40 Invasive Line 1 20 Invasive Line 2 20 Oral 1380 Output: Urine 450 Other: Voiding Method Urinal Urinal Urinal # Voids 3 6 # Bowel Movements 1 - Exam The patient appeared well nourished and normally developed. Vital signs as documented. Head exam is unremarkable. No scleral icterus or corneal arcus noted. Neck is without jugular venous distension, thyromegaly, or carotid bruits. Carotid upstrokes are brisk bilaterally. Lungs are clear to auscultation and percussion. Cardiac exam reveals the PMI to be normally sized and situated. Rhythm is regular. First and second heart sounds normal. No murmurs, rubs or gallops. Abdominal exam reveals normal bowel sounds, no masses, no organomegaly and no aortic enlargement. Extremities are nonedematous and both femoral and pedal pulses are normal. - Labs CBC & Chem 7: 08/05/19 09:27 08/05/19 09:27 Labs: Microbiology - Last 24 Hours (Table) 08/02/19 14:12 Blood Culture - Preliminary Blood No Growth after 96 hours Assessment and Plan Plan: 1. Malignant mesothelioma undergoing staging workup: -Had an extensive discussion with the patient regarding staging workup which would involve MRI of the brain and a PET scan - most of the times depending on the stage mesothelioma is treated with upfront neoadjuvant carboplatinum or cis-[place] with pemetrexed. the patient's ECOG performance is very poor and might not be even a candidate. In metastatic setting is carboplatin with pemetrexed with bevacizumab was used. - in metastatic setting is relatively immunotherapy with pembrolizumab can be used as well. - Explained this to the family. Waiting for a PET scan which is scheduled for Thursday however patient is admitted and will have today later next week. - Outpatient PET scan. Follow-up appointment to see Dr. Haq next Thursday for treatment plan. 2 Respiratory distress, COPD, acute hypoxic respiratory failure secondary to sincerely: - Right-sided pleural effusion which could be malignant versus CHF as well. Drainage as needed to support her breathing. 3 Other medical problems include, hypothyroidism,hypertension, atrial fibrillation, hyperlipidemia, arrhythmias, anxiety disorder, CHF with an EF of around 40-45% 12 right-sided pleural effusion, rule out secondary to CHF. Rule out secondary to mesothelioma as this can be an early manifestation of mesothelioma involving the right pleural surface Thank you for allowing me to participate in the care of your patient. Keith Leonard MD Manager Media, [facility] Hematology Oncology [id number], [address] [place] [address] Office: [phone]
== END 2019-08-06 17:55 | disposition home health service (06) | DRG 180 ==
LOC: EC 13:17 → 3SCARD 15:37 → 3NMEDONC 08-05 20:30
PROVIDERS: ADMIT Internal Medicine; ATTEND Internal Medicine
DX: C45.0 Mesothelioma of pleura (principal); I50.23 Acute on chronic systolic (congestive) heart failure; J96.01 Acute respiratory failure with hypoxia; I31.3 Pericardial effusion (noninflammatory); I42.9 Cardiomyopathy, unspecified; I44.2 Atrioventricular block, complete; I48.20 Chronic atrial fibrillation, unspecified; J44.1 Chronic obstructive pulmonary disease with (acute) exacerbation; J98.11 Atelectasis; J91.0 Malignant pleural effusion; E03.9 Hypothyroidism, unspecified; E78.5 Hyperlipidemia, unspecified; F41.1 Generalized anxiety disorder; I11.0 Hypertensive heart disease with heart failure; I27.20 Pulmonary hypertension, unspecified; K57.90 Diverticulosis of intestine, part unspecified, without perforation or abscess without bleeding; K59.00 Constipation, unspecified; N40.0 Benign prostatic hyperplasia without lower urinary tract symptoms; Z77.090 Contact with and (suspected) exposure to asbestos; Z79.01 Long term (current) use of anticoagulants; Z79.51 Long term (current) use of inhaled steroids; Z79.82 Long term (current) use of aspirin; Z79.890 Hormone replacement therapy; Z79.899 Other long term (current) drug therapy; Z83.3 Family history of diabetes mellitus; Z87.891 Personal history of nicotine dependence; Z95.0 Presence of cardiac pacemaker; Z98.42 Cataract extraction status, left eye; Z98.41 Cataract extraction status, right eye; Z96.1 Presence of intraocular lens; Z60.2 Problems related to living alone; H35.30 Unspecified macular degeneration; Z80.3 Family history of malignant neoplasm of breast; Z86.010 Personal history of colon polyps; G89.3 Neoplasm related pain (acute) (chronic)
CPT/HCPCS: 36415; 70460; 71046; 74177; 80048; 80053; 83605; 83735; 83880; 84484; 85025; 85027; 85610; 85730; 87040; 93306; 94640; 94760; 96365; 96367; 96375; 96376; 99285

== ENCOUNTER → 2019-08-13 | Outpatient (CLI) | payer MEDICARE ==
--- NOTE | 2019-08-19 16:47 | PE ---
Nuclear medicine PET/CT HISTORY: Mesothelioma, initial Patient received 9.9 mCi F-18 FDG intravenously in delayed scanning was performed from the skull base to the mid thighs. Localization and attenuation correction CT scan was performed. Correlation CT chest 07/12/2019, CT abdomen pelvis 08/03/2019 Neck and chest: There is no evident cervical or supraclavicular adenopathy. Diffuse nodular soft tiss ue mass along the pleural margins of the left hemithorax are again noted, there is associated hyperme tabolic uptake, SUV 10.6. There is been interval development of a larger right pleural effusion. Heart is enlarged. Coronary artery calcifications are extensive. Ascending aorta is aneurysmal 4.2 cm . Enlarged pulmonary artery may be suggestive of pulmonary artery hypertension. ABDOMEN: No suspicious hypermetabolic uptake. No retroperitoneal adenopathy. There is ascites present . Extensive diverticular change in the sigmoid colon. Prostate calcifications are present. Osseous structures show no hypermetabolic uptake. IMPRESSION: Findings compatible with patient's history of mesothelioma. Additional findings above.
== END | disposition home or self-care (01) ==
LOC: RADPETMAIN 11:30
PROVIDERS: ATTEND Internal Medicine Hematology & Oncology
DX: C45.9 Mesothelioma, unspecified (principal)
CPT/HCPCS: 78815; A9552